=== PATIENT | female | born 1940 | race Caucasian/White ===

== ENCOUNTER 2021-02-03 10:10 | Emergency (ER) | payer MEDICARE, OTHER, SELFPAY ==
[2021-02-03 10:16] VITALS: BP 134/77; PULSE 70; RESP 22; TEMP 36.6; O2SAT 97; BMI 25.0
--- NOTE | 2021-02-03 10:28 | HMH.EDUTC ---
[facility] [place] Clinical Impression: Encounter for laboratory testing for COVID-19 virus Disposition: Home, Self-Care Condition on Discharge: Good Instructions: DI for COVID-19 (Suspected or Confirmed ), Preventing the Spread of Coronavirus Discharge Instructions Additional Instructions: You were tested for today for COVID19 your test result should be back in the next 24-48 hours, you may call to the [facility] to see if your test results are back in the next 48 hours [phone] [facility] hours are 9am-9pm You was given a handout with instructions for Self Quarantine and Self isolation for while you wait on test results and what to do if they are positive If you are positive the Health Dept will be contacting you also Referrals: Vicente Loyd [Primary Care Provider] - As needed Time of Disposition: 10:30 Medical Decision Making - Scott Inquiry Pt receiving controlled substance: No Scott was queried for this patient: No Vital Signs: 02/03/21 10:16 Temperature 98 F Temperature Source Oral Pulse Rate [Right] 70 Respiratory Rate 22 Blood Pressure [Right Arm] 134/77 Blood Pressure Mean [Right Arm] 96 Blood Pressure Source [Right Arm] Automatic Cuff Blood Pressure Position [Right Arm] Sitting 02 Sat by Pulse Oximetry 97 Oxygen Delivery Method Room Air Orders (Tests/Meds): ORDERS Category Date Time Status Covid-19 Nasal PCR ([facility]) Routine Lab 02/03/21 10:28 Ordered [facility] HPI - General Stated complaint: covid Test Time Seen by Provider: 02/03/21 10:28 Mode of Arrival: Ambulatory Source of Information: Patient Limitations: No Limitations Description of Symptoms (Recalled from Triage Doc. by RN): pt wants a covid test. she is aysmptomatic. no exposure. she was out of state to [place]. HEENT Symptoms (Recalled from RN notes): No Resp Symptoms (Recalled from RN notes): No Skin Symptoms (Recalled from RN notes): No MS Symptoms (Recalled from RN notes): No Functional Status (Recalled from RN notes): na - History of Present Illness Provider Complaint: Patient state that she just got back from [place] and she wanted to get tested for COVID State that she is not having any symptoms but will be around some elderly women tomorrow and wanted to make sure that she was negative for COVID before being around them - Related Data Home Medications Medication Instructions Recorded Confirmed Albuterol Sulfate [Albuterol HFA 1 - 2 puffs IH Q4-6H PRN 10/12/18 10/12/18 Inhaler] Atorvastatin Calcium [Atorvastatin 80 mg PO DAILY 10/12/18 10/12/18 80mg Tab] Isosorbide Mononitrate [Imdur 30mg 30 mg PO DAILY 10/12/18 10/12/18 ER tablet] Levothyroxine Sodium [Synthroid 88 mcg PO DAILY 10/12/18 10/12/18 88mcg (0.088mg) tablet] Aspirin [Aspir 81] 1 tab PO DAILY 10/14/18 10/14/18 Previous Rx's Medication Instructions Recorded Azithromycin [Z-Gurvinder 250mg Tab*] 250 mg PO UD DOSE PK #6 tab 05/12/19 methylPREDNISolone [Medrol] 4 mg PO DIRECTED 6 Days #21 05/12/19 tab.ds.pk Fluconazole [Diflucan 150mg tab] 150 mg PO ONCE #1 tab 10/01/19 Ondansetron [Zofran 4mg ODT] 4 mg PO Q8HP PRN #20 tab.rapdis 10/01/19 levoFLOXacin [Levaquin 500mg 500 mg PO DAILY #7 tab 10/01/19 tab] methylPREDNISolone [Medrol] 4 mg PO DIRECTED 6 Days #21 10/01/19 tab.ds.pk Allergies Allergy/AdvReac Type Severity Reaction Status Date / Time propoxyphene Allergy Unknown Verified 02/03/21 10:18 tetracycline Allergy Verified 02/03/21 10:18 - Worker's Comp Is this a Worker's Comp case?: No [facility] History - Hepatitis A Screen Drug use history?: No High risk sexual behaviors?: No History of sexually transmitted infection?: No Currently employed?: No Childcare worker?: No Do you have indoor plumbing?: Yes Do you have electricity?: Yes Attestation statement:: This patient has been screened for Hepatitis A risk factors. I have reviewed the patient's past medical history: Yes Medical History: Reports:: Co
[2021-02-03 10:29] VITALS: BP 129/79; PULSE 73; RESP 21; TEMP 36.6
== END 2021-02-03 10:33 | disposition home or self-care (01) ==
PROVIDERS: Emergency Provider Nurse Practitioner; PCP Internal Medicine
DX: Z20.822 Contact with and (suspected) exposure to COVID-19 (principal); J44.9 Chronic obstructive pulmonary disease, unspecified; E78.5 Hyperlipidemia, unspecified; Z88.8 Allergy status to other drugs, medicaments and biological substances
CPT/HCPCS: G0463; 99202; U0003

== ENCOUNTER 2021-05-14 09:48 | Outpatient (RCR) | payer MEDICARE, OTHER, SELFPAY | END 2021-09-17 10:36 | disposition home or self-care (01) | LOC: PT 09:48 | PROVIDERS: Visit Provider Internal Medicine Critical Care Medicine | DX: J44.9 Chronic obstructive pulmonary disease, unspecified (principal) | CPT/HCPCS: G0424 ==

== ENCOUNTER → 2021-10-10 11:11 | Outpatient (CLI) | payer MEDICARE, OTHER, SELFPAY ==
--- NOTE | 2021-10-10 11:16 | XR_ITS ---
PROCEDURE: XR HIP LT 2-3V W/PELVIS CLINICAL INDICATION: S/P FALL LT BUTTOCK AND LT HIP PAIN COMPARISON: No exams were available for comparison FINDINGS: Minimal osteoarthritic change of the left hip. No acute fracture or dislocation. No lytic or blastic change. IMPRESSION: Minimal osteoarthritic change left hip Dictated by: Jose David Vargas MD 10/10/2021 11:50 Jose David Vargas MD in [place] 10/10/2021 11:50
== END ==
PROVIDERS: PCP Internal Medicine; Visit Provider Internal Medicine
DX: R10.2 Pelvic and perineal pain (principal); M25.552 Pain in left hip
CPT/HCPCS: 73502

== ENCOUNTER → 2021-10-30 06:43 | Outpatient (CLI) | payer MEDICARE, OTHER, SELFPAY ==
--- NOTE | 2021-10-30 06:48 | CT_ITS ---
PROCEDURE: CT HIP LT WO CON CLINICAL HISTORY: LEFT HIP PAIN COMPARISON: CR XR HIP LT 2-3V W/PELVIS from 10/10/2021 TECHNIQUE: Axial images obtained with sagittal and coronal reformats. All CT scans at the facility use one or more dose reduction, viz: automated exposure control, ma/kV adjustment per patient size (including targeted exams where dose is matched to indication, i.e. head), or iterative reconstruction technique. FINDINGS: No fracture or dislocation. No lytic or blastic change. Minimal osteoarthritic changes are present involving the left hip. No soft tissue mass apparent. IMPRESSION: No acute finding Dictated by: Jose David Vargas MD 10/30/2021 12:34 Jose David Vargas MD in [place] 10/30/2021 12:34
== END ==
PROVIDERS: PCP Internal Medicine; Visit Provider Internal Medicine
DX: M25.552 Pain in left hip (principal)
CPT/HCPCS: 73700

== ENCOUNTER 2022-01-12 10:54 | Emergency (ER) | payer MEDICARE, OTHER, SELFPAY ==
[2022-01-12 11:06] VITALS: BP 0/0; PULSE 0; RESP 0; TEMP -17.7; TEMP 0
== END 2022-01-12 11:07 | disposition left against medical advice (07) ==
LOC: UTC 10:59
PROVIDERS: Emergency Provider Nurse Practitioner Family; PCP Internal Medicine
DX: J44.9 Chronic obstructive pulmonary disease, unspecified (principal); Z88.1 Allergy status to other antibiotic agents; Z88.3 Allergy status to other anti-infective agents; Z88.8 Allergy status to other drugs, medicaments and biological substances; Z79.51 Long term (current) use of inhaled steroids; Z79.52 Long term (current) use of systemic steroids; Z79.899 Other long term (current) drug therapy; Z53.21 Procedure and treatment not carried out due to patient leaving prior to being seen by health care provider
CPT/HCPCS: 99211

== ENCOUNTER 2022-06-07 12:12 | Emergency (ER) | payer MEDICARE, OTHER, SELFPAY ==
[2022-06-07 12:25] VITALS: BP 135/82; PULSE 77; RESP 17; TEMP 36.6; O2SAT 96; BMI 24.4
[2022-06-07 12:28] VITALS: BP 135/82; PULSE 77; RESP 17; TEMP 36.6
== END 2022-06-07 12:29 | disposition home or self-care (01) ==
LOC: UTC 12:14
PROVIDERS: Emergency Provider Nurse Practitioner Family; PCP Internal Medicine
DX: Z53.21 Procedure and treatment not carried out due to patient leaving prior to being seen by health care provider (principal); Z20.822 Contact with and (suspected) exposure to COVID-19
CPT/HCPCS: C9803; U0003; U0005

== ENCOUNTER → 2022-07-20 08:16 | Outpatient (CLI) | payer MEDICARE, OTHER, SELFPAY ==
[2022-07-20 09:07] LABS: Blood Urea Nitrogen 15 mg/dl (7-17); Estimated Glomerular Filt Rate 60 ml/min (>60); GFR (African American) 73 ML/MIN (>60)
== END ==
PROVIDERS: PCP Internal Medicine; Visit Provider Internal Medicine
DX: R06.02 Shortness of breath (principal); R07.9 Chest pain, unspecified; J44.9 Chronic obstructive pulmonary disease, unspecified
CPT/HCPCS: 36415; 82565; 84520

== ENCOUNTER → 2022-07-21 13:17 | Outpatient (CLI) | payer MEDICARE, OTHER, SELFPAY ==
--- NOTE | 2022-07-21 | CA_ITS ---
APPROVED REPORT EXAM: Comprehensive 2D, Doppler, and color-flow Echocardiogram Pipe Changer: Josiane Puckett CRT Ht: 5 ft 5 in Wt: 147lbs BSA: 1.74 BP: 134/77 mmHg Indications: Chest Pain, COPD, Hyperlipidemia, stent 2D Dimensions LVOT 1.87 cm (M/F) 1.5-2.5 LA Volume 10.70 mL LA Volume Index 6.10 mL/m2 (M/F) 16-34 M-Mode Dimensions RVDd 2.32 cm (0.9-2.6) LA Diam 3.04 cm (1.9-4.0) LVDd 4.22 cm (3.5-5.7) Ao Diam 3.65 cm (2.0-3.7) LVDs 2.87 cm (3.5-5.7) IVSd 1.13 cm (0.6-1.1) PWd 1.20 cm (0.6-1.1) EF (Teich) 60.50% FS 32.00% EDV (Teich) 79.50 mL TAPSE 2.67 (<1.7) ESV (Teich) 31.40 mL LV Diastology E Decel Time 310.00 (160-240 msec) E/A Ratio 0.65 MED E' 6.00 (< 7 cm/sec) MED A' 11.40 cm/s E'/MED E' Ratio 11.65 (>14) LAT E' 9.10 (<10 cm/sec) LAT A' 9.70 cm/s E/LAT E' Ratio 7.68 (>14) Aortic Valve AO Peak GR. 6.20 mmHg Mitral Valve MV E Max Keshawn. 70.00 (40-130 cm/s) MV A Velocity 107.00 (40-130 cm/s) E/A Ratio 0.65 MV Decel. Time 310.00 (160-240 ms) MV PHT 91.00 ms Pulmonary Valve PV Peak Velocity 159.00 (50-150 cm/s) Tricuspid Valve TR P. Velocity 264.00 cm/s RAP Estimate 10.00 mmHg RVSP 38.00 mmHg Left Ventricle Left atrium is mildly enlarged, left ventricle is normal size mild concentric left ventricular hypertrophy, estimated ejection fraction 55% with no regional wall motion abnormality, grade 1 diastolic dysfunction seen without tissue Doppler evidence of raise left atrial pressure. Right Ventricle Right atrium and right ventricle are mildly enlarged with normal contractility. Aortic Valve Aortic valve is minimally thickened and fibrosed there is no aortic stenosis or aortic insufficiency. Mitral Valve Mitral valve is grossly normal, there is mild mitral regurgitation. Tricuspid Valve Tricuspid valve grossly normal, there is mild tricuspid regurgitation, calculated right ventricular systolic pressure 36 mmHg. Pulmonic Valve Pulmonic valve is poorly visualized. Great Vessels Aortic root is normal size. Inferior vena cava normal size with normal inspiratory collapse. Pericardium No significant pericardial effusion noted. Conclusion 1. Mild biatrial enlargement, normal left ventricular size, mild concentric left ventricular hypertrophy, estimated ejection fraction 55% with no regional wall motion abnormality, grade 1 diastolic dysfunction seen without tissue Doppler evidence of raise left atrial pressure. 2. Mildly enlarged right ventricle with normal contractility. 3. Mild mitral and tricuspid regurgitation, calculated right ventricular systolic pressure 36 mmHg. 4. No significant pericardial effusion. 5. Inferior vena cava is normal size with normal inspiratory collapse. Electronically signed by : Oliver Louis MD 07/22/2022 05:24:08
--- NOTE | 2022-07-21 13:23 | CT_ITS ---
FINAL REPORT TECHNIQUE: Then section axial CT images of the chest were obtained with contrast. Three-D reformatted images were also obtained.This study was performed with techniques to keep radiation doses as low as reasonably achievable (ALARA). Individualized dose reduction techniques using automated exposure control or adjustment of mA and/or kV according to the patient''s size were employed. CLINICAL HISTORY: CHEST PAIN COMPARISON: September 22, 2017 FINDINGS: There is no evidence of pulmonary embolism. There is no evidence of thoracic aortic aneurysm or dissection. There is no evidence of mediastinal or hilar mass or adenopathy. There is mild scarring. A 6 mm right upper lobe nodule is larger than on the prior exam. Posterior to this is a 4 mm nodule that previously measured 8 mm. There is mild ground-glass opacity in both lungs that could represent edema or alveolitis. A 3 mm lateral left upper lobe nodule is new. There are multiple other smaller nodules most numerous in the inferior right upper lobe. Limited images of the upper abdomen demonstrate a 23 mm cystic lesion in the posterior liver to be stable. IMPRESSION: 1. No evidence of pulmonary embolism. 2. Multiple pulmonary nodules some of which have increased and some have decreased while others are new. Recommend six-month follow-up chest CT. 3. Mild ground-glass opacity bilaterally could represent edema or alveolitis. Reviewed, Interpreted and Dictated by Jose Angel Keller III, MD Transcribed by Juanpablo Vallejo Authenticated and . [facility]
== END ==
PROVIDERS: PCP Internal Medicine; Visit Provider Internal Medicine
DX: R06.02 Shortness of breath (principal); J44.9 Chronic obstructive pulmonary disease, unspecified; R07.9 Chest pain, unspecified; I10 Essential (primary) hypertension; E03.9 Hypothyroidism, unspecified
CPT/HCPCS: 71275; 93306; Q9967

== ENCOUNTER → 2022-09-08 16:57 | Outpatient (CLI) | payer MEDICARE, OTHER, SELFPAY | PROVIDERS: PCP Internal Medicine; Visit Provider Internal Medicine | DX: N39.0 Urinary tract infection, site not specified (principal) | CPT/HCPCS: 87086 ==

== ENCOUNTER → 2022-11-20 15:49 | Outpatient (CLI) | payer MEDICARE, OTHER, SELFPAY ==
--- NOTE | 2022-11-20 15:57 | XR_ITS ---
FINAL REPORT CLINICAL HISTORY: LT HIP PAIN COMPARISON: October 10, 2021 FINDINGS: LEFT HIP Two views of the left hip including an AP pelvis demonstrate no acute fracture or dislocation. There are mild degenerative changes of the hips. The visualized bony structures are well aligned. No soft tissue abnormality is seen. IMPRESSION: Mild degenerative changes with no acute bony abnormality. Reviewed, Interpreted and Dictated by Jose Angel Keller III, MD Transcribed by Melissa Lopez Authenticated and [facility]
--- NOTE | 2022-11-20 15:57 | XR_ITS ---
FINAL REPORT CLINICAL HISTORY: PAIN LOW BACK FINDINGS: LUMBAR SPINE 5 views of the lumbar spine were obtained. There is no evidence of fracture or dislocation. There is left lateral subluxation of L2-3 and L3-4. There is levoscoliosis. There are moderate and severe degenerative changes. No paraspinous soft tissue abnormalities identified. IMPRESSION: Moderate and severe degenerative changes with left lateral subluxation of L2-3 and L3-4. No acute bony abnormality. Reviewed, Interpreted and Dictated by Jose Angel Keller III, MD Transcribed by Melissa Lopez Authenticated and [facility]
== END ==
PROVIDERS: PCP Internal Medicine; Visit Provider Internal Medicine
DX: M25.552 Pain in left hip (principal); R10.2 Pelvic and perineal pain
CPT/HCPCS: 72110; 73502

== ENCOUNTER 2023-05-01 17:23 | Emergency (ER) | payer MEDICARE, OTHER, SELFPAY ==
[2023-05-01 17:24] VITALS: BP 138/69; PULSE 74; RESP 24; TEMP 37.1; O2SAT 95; BMI 26.0
--- NOTE | 2023-05-01 17:33 | XR_ITS ---
PROCEDURE INFORMATION: Exam: XR Chest Exam date and time: 05/01/2023 5:38 PM Age: 82 years old Clinical indication: Cough; Additional info: Congestion and SOB TECHNIQUE: Imaging protocol: Radiologic exam of the chest. Views: 2 views. COMPARISON: CT ANGIO CHEST PE PROTOCOL 07/21/2022 1:32 PM FINDINGS: Lungs: There is mild bibasilar atelectasis. Lungs are otherwise appear clear. Pleural spaces: Unremarkable. No pleural effusion. No pneumothorax. Heart/Mediastinum: Unremarkable. No cardiomegaly. Bones/joints: Mild degenerative changes noted in the spine and shoulders IMPRESSION: No acute disease
--- NOTE | 2023-05-01 18:00 | EXP.UTC ---
Discharge Plan Disposition Patient Disposition: Home, Self-Care Condition: Good Prescriptions Prescriptions: New azithromycin [azithromycin] 250 mg tablet 250 mg PO DIRECTED Qty: 4 0RF Rx Instructions: (1) tablet day #2 thru #5 No Action isosorbide mononitrate 30 MG tablet 30 mg PO DAILY levothyroxine [Synthroid] 88 MCG tablet 88 mcg PO DAILY albuterol sulfate [Ventolin HFA] 18 GM HFA aerosol inhaler 1 - 2 puffs inhalation Q4-6H PRN (Reason: Shortness Of Breath Or Wheezing) aspirin [Aspir-81] 81 MG tablet,delayed release (DR/EC) 1 tab PO DAILY fluticasone propionate [Flovent HFA] 220 mcg/actuation HFA aerosol inhaler 2 puff INHALATION BID Label Comments: TAKE 2 PUFFS BY MOUTH TWICE A DAY rosuvastatin 40 mg tablet 40 mg PO DAILY Label Comments: TAKE 1 TABLET BY MOUTH EVERY DAY Stiolto Respimat 2.5-2.5 mcg/actuation mist 2 puff inhalation DAILY Label Comments: INHALE 2 PUFFS BY MOUTH EVERY DAY Referrals Follow up/Referrals: Vicente Loyd MD [Primary Care Provider] - See instructions Clinical Impressions Clinical Impression: Bronchitis Instructions Patient Instructions: Acute Bronchitis Discharge ED Provider: [place] ([facility])[place] [facility] General Stated complaint: slight fever , painful to breathe, SOA Mode of Arrival: Ambulatory Source of Information: Patient Limitations: No Limitations Time Seen by Provider: 05/01/23 18:00 Description of Symptoms (Recalled from Triage Doc. by RN): SOB, cough, upper left back has pain when she breaths HEENT Symptoms (Recalled from RN notes): Yes Resp Symptoms (Recalled from RN notes): No Skin Symptoms (Recalled from RN notes): No MS Symptoms (Recalled from RN notes): No Functional Status (Recalled from RN notes): n/a History of Present Illness Provider Complaint: 82 yr old female presents for cough, soa and pain in upper left back when breathing Related Data Home Medications Medication Instructions Recorded Confirmed albuterol sulfate 90 mcg/actuation 1 - 2 puffs inhalation Q4-6H PRN 10/12/18 05/01/23 aerosol inhaler (Ventolin HFA) Shortness Of Breath Or Wheezing isosorbide mononitrate 30 mg 30 mg PO DAILY Heart disease 10/12/18 05/01/23 tablet,extended release 24 hr levothyroxine 88 mcg tablet 88 mcg PO DAILY thyroid 10/12/18 05/01/23 (Synthroid) aspirin 81 mg tablet,delayed 1 tab PO DAILY thinner 10/14/18 05/01/23 release (Aspir-) fluticasone propionate 220 2 puff inhalation BID COPD 05/01/23 05/01/23 mcg/actuation HFA aerosol inhaler (Flovent HFA) rosuvastatin 40 mg tablet 40 mg PO DAILY . 05/01/23 05/01/23 tiotropium 2.5 mcg-olodaterol 2.5 2 puff inhalation DAILY COPD 05/01/23 05/01/23 mcg/actuation mist for inhalation (Stiolto Respimat) Previous Rx's Medication Instructions Recorded azithromycin 250 mg tablet 250 mg PO DIRECTED #4 tabs 05/01/23 Allergies Allergy/AdvReac Type Severity Reaction Status Date / Time propoxyphene Allergy Unknown Verified 05/01/23 17:41 doxycycline Allergy Verified 05/01/23 17:41 tetracycline Allergy Verified 05/01/23 17:41 Worker's Comp Is this a Worker's Comp case?: No [facility] Disclaimer: The information contained in this section may have been updated after the patient was seen, as this information can be updated by other users. 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
[2023-05-01 19:03] VITALS: BP 138/69; PULSE 74; RESP 24; TEMP 37.1; O2SAT 95
== END 2023-05-01 19:03 | disposition home or self-care (01) ==
PROVIDERS: Emergency Provider Nurse Practitioner Family; PCP Internal Medicine
DX: J20.9 Acute bronchitis, unspecified (principal); R07.1 Chest pain on breathing; R06.02 Shortness of breath
CPT/HCPCS: 71046; 99212; 99214; G0463

== ENCOUNTER → 2023-10-06 17:08 | Outpatient (CLI) | payer MEDICARE, OTHER, SELFPAY | PROVIDERS: PCP Internal Medicine; Visit Provider Internal Medicine | DX: N39.0 Urinary tract infection, site not specified (principal); B96.89 Other specified bacterial agents as the cause of diseases classified elsewhere | CPT/HCPCS: 81001; 87086 ==

== ENCOUNTER → 2023-10-26 13:27 | Outpatient (CLI) | payer MEDICARE, OTHER, SELFPAY ==
[2023-10-26 13:38] LABS: Microscopic, Urine URINE MICROSCOPIC (MICROSCOPIC)
[2023-10-26 14:11] LABS: Appearance,Urine CLEAR (Clear); Bilirubin,Urine Negative (Negative); Blood, Urine Negative (Negative); Color,Urine YELLOW (Yellow); Glucose,Urine (UA) Negative (Negative); Ketones,Urine Negative (Negative); Leukocyte Esterase,Urine 1+ (Negative); Nitrate,Urine Negative (Negative); Protein,Urine Negative (Negative); Specific Gravity, Urine <= 1.005 (1.005-1.030); Urobilinogen,Urine 0.2 EU/dl (0.2)
[2023-10-26 14:32] LABS: Bacteria,Urine Trace /lpf; Triple Phosphate Crystal,Urine Trace /lpf
[2023-10-26 14:33] LABS: RBC,Urine Occasional #/hpf (0-3)
== END ==
PROVIDERS: PCP Internal Medicine; Visit Provider Internal Medicine
DX: N39.0 Urinary tract infection, site not specified (principal)
CPT/HCPCS: 81001; 87086

== ENCOUNTER 2023-11-10 16:07 | Outpatient (CLI) | payer MEDICARE, OTHER, SELFPAY ==
--- NOTE | 2023-11-10 16:13 | XR_ITS ---
FINAL REPORT CLINICAL HISTORY: FEVER, COUGH, COPD COMPARISON: 05/01/2023 FINDINGS: Two views of the chest were obtained. The heart size and pulmonary vascularity are within normal limits. The mediastinum is normal. No acute pulmonary abnormality is identified. There is no pneumothorax. The bony thorax is intact. IMPRESSION: No active cardiopulmonary disease. Reviewed, Interpreted and Dictated by Jose Angel Keller III, MD Transcribed by Elsy Chen Authenticated and . [facility]
== END 2023-11-10 23:59 ==
LOC: RAD 16:08
PROVIDERS: PCP Internal Medicine; Visit Provider Internal Medicine
DX: J44.1 Chronic obstructive pulmonary disease with (acute) exacerbation (principal); R05.9 Cough, unspecified; R50.9 Fever, unspecified
CPT/HCPCS: 71046

== ENCOUNTER 2024-01-21 08:00 | Outpatient (RCR) | payer MEDICARE, OTHER, SELFPAY ==
--- NOTE | 2024-01-04 12:24 | HMH.RHREAS ---
Rehab Reassessment Rehab OP Re-assessment Start: 12/07/23 16:27 Freq: Status: Active Protocol: Document 01/04/24 08:42 TYLER (Rec: 01/04/24 10:06 TYLER [id number]) E-signed By Franci Snyder, PT CORTEZ Balance Evaluation Sitting to Standing Ability Independent w/out Hands Unsupported Stance Safely- 2 minutes Sitting Unsupported, Feet on Floor Safely- 2 minutes Standing to Sitting Ability Safely, Minimal Hand Use Transfer Ability Safely, Minimal Hand Use Unsupported Stance- Eyes Closed Safely, 10 seconds Unsupported Stance- Eyes Open Independent, 1 minute Reaching Forward Standing Confidently, 10 inches Pick- Up Object From Floor Independent/Safe Look Behind Shoulder - Standing Shifts Weight Unilateral Turning 360 Degrees Turns slowly, but safely Unsupported Stance, Alternating Feet on Assist to Prevent Fall Stair Unsupported Tandem Stance Small Step- 30 seconds Unilateral Leg Stance Lifts Leg/Holds 5-10 secs Total Score Balance Evaluation Total (out of 56 46 points) Lower Extremity Functional Index Activities Today, do you or would you have any difficulty at all with: a.Any of your usual work, housework or Moderate difficulty school activities b. Your usual hobbies, recreational or Moderate difficulty sporting activities c. Getting into or out of the bath Moderate difficulty d. Walking between rooms A little bit of difficulty e. Putting on your shoes or socks Moderate difficulty f. Squatting Quite a bit of difficulty g. Lifting an object, like a bag of Quite a bit of difficulty groceries from the floor h. Performing light activities around A little bit of difficulty your home i. Performing heavy activities around Quite a bit of difficulty your home j. Getting into or out of a car A little bit of difficulty k. Walking 2 blocks Quite a bit of difficulty l. Walking a mile Quite a bit of difficulty m. Going up or down 10 stairs (about 1 Moderate difficulty flight of stairs) n. Standing for 1 hour Extreme difficulty or unable to perform activity o. Sitting for 1 hour No difficulty p. Running on even ground Moderate difficulty q. Running on uneven ground Quite a bit of difficulty r. Making sharp turns while running fast Quite a bit of difficulty s. Hopping Moderate difficulty t. Rolling over in bed Moderate difficulty LEFI Score Lower Extremity Functional Index Score 36 Rehab Re-assessment Subjective Subjective Pt reports she is tired d/t a long night in ER (for ) . 0/10 hip pain upon arrival. I've been doing all my exercises. Objective Objective Notes CORTEZ/56 MMT: L hip flexion 4-/5 R hip flexion 4/5 B knee ext: 4/5 BDF: 4+/5 B Knee flex: 4/5 B hip ABD and ADD: 4/5 LEFI: 36/80 Assessment Assessment Notes As of 01/04/24, pt has been seen for 6 visits and pt has made improvements in BLE strength, balance, and subjective pain reports. Pt continues to state her pain is 0/10 during PT sessions since her injection but is limited by strength and standing long durations. Pt reports she feels 80% better in terms of hip pain and 75% better in regard to her LE strength. Pt continues to demonstrate impaired standing balance on even and uneven surfaces and impaired BLE strength (L more so than R). Pt would continue to benefit from skilled outpatient PT to address BLE strength, pain, gait, and balance. Patient goals met ST/4 LTG: in progress Revised Goals Added goal: Subjective pain report: 24 hour pain average of 12/18 to improve QOL Plan Plan Continue POC Frequency of Therapy 2 times Duration of therapy 6 Time and Billing Re-Eval Time 10 Re-Eval Billing Units 1 PHYSICIAN CERTIFICATION: I certify the specified therapy services for Nuzhat Bae are required, authorized, and reviewed every 30 days.
== END 2024-01-21 09:15 | disposition home or self-care (01) ==
LOC: PT 08:00
PROVIDERS: PCP Internal Medicine; Visit Provider Orthopaedic Surgery
DX: M25.552 Pain in left hip (principal); M25.551 Pain in right hip
CPT/HCPCS: 97110; 97163; 97164; 97530

== ENCOUNTER 2024-08-22 13:40 | Outpatient (CLI) | payer MEDICARE, OTHER, SELFPAY ==
[2024-08-22 13:59] LABS: Microscopic, Urine URINE MICROSCOPIC (MICROSCOPIC)
[2024-08-22 14:12] LABS: Appearance,Urine CLEAR (Clear); Bilirubin,Urine Negative (Negative); Blood, Urine Negative (Negative); Color,Urine YELLOW (Yellow); Glucose,Urine (UA) Negative (Negative); Ketones,Urine Negative (Negative); Leukocyte Esterase,Urine 1+ (Negative); Nitrate,Urine Negative (Negative); Protein,Urine Negative (Negative); Urobilinogen,Urine 0.2 EU/dl (0.2)
[2024-08-22 14:20] LABS: Bacteria,Urine Trace /lpf; WBC,Urine Occasional #/hpf (0-3)
== END 2024-08-22 23:59 | disposition home or self-care (01) ==
LOC: LAB 13:42
PROVIDERS: PCP Internal Medicine; Visit Provider Internal Medicine Nephrology
DX: R82.81 Pyuria (principal)
CPT/HCPCS: 81001; 87086

== ENCOUNTER 2024-08-31 15:40 | Outpatient (CLI) | payer MEDICARE, OTHER, SELFPAY | END 2024-08-31 23:59 | disposition home or self-care (01) | LOC: LAB.DROPOF 09-01 12:50 | PROVIDERS: PCP Internal Medicine; Visit Provider Internal Medicine | DX: N39.0 Urinary tract infection, site not specified (principal) | CPT/HCPCS: 87086 ==

== ENCOUNTER 2024-11-29 11:25 | Outpatient (CLI) | payer MEDICARE, OTHER, SELFPAY ==
[2024-11-29 13:28] LABS: Basophils # 0.1 K/mm3 (0-0.2); Basophils % 0.7 % (0.1-2.0); Eosinophils # 0.4 K/mm3 (0.0-0.4); Eosinophils % 3.6 % (0.1-12.0); Hematocrit 42.8 % (37.0-47.0); Hemoglobin 13.8 g/dL (12.2-16.2); Lymphocytes # 1.9 K/mm3 (0.7-4.5); Mean Corpuscular HGB Conc 32.2 g/dL (31.8-35.4); Mean Platelet Volume 10.6 fl (7.4-10.4); Monocytes # 0.9 K/mm3 (0.1-1.0); Monocytes % 9.1 % (1.7-9.3); Neutrophils # 6.4 K/mm3 (1.8-7.8); Neutrophils % 66.2 % (37.0-80.0); Platelet Count 236 K/mm3 (142-424); Red Cell Distribution Width 14.4 % (11.5-17.5); White Blood Count 9.6 K/mm3 (4.8-10.8)
[2024-11-29 16:01] LABS: Erythrocyte Sedimentation Rate 71 mm/hr (0-30)
== END 2024-11-29 23:59 | disposition home or self-care (01) ==
LOC: LAB.DROPOF 11-30 13:55
PROVIDERS: PCP Internal Medicine; Visit Provider Internal Medicine
DX: M54.2 Cervicalgia (principal)
CPT/HCPCS: 85025; 85651

== ENCOUNTER 2024-12-14 15:41 | Outpatient (CLI) | payer MEDICARE, OTHER, SELFPAY ==
[2024-12-14 16:15] LABS: Chloride 103 mmol/L (98-107)
[2024-12-14 16:16] LABS: Potassium 4.1 mmoL/L (3.5-5.1); Sodium 139 mmol/L (136-145)
[2024-12-14 16:18] LABS: Blood Urea Nitrogen 16 mg/dl (7-17); Estimated Glomerular Filt Rate 80 ml/min (>60); GFR (African American) 97 ML/MIN (>60)
[2024-12-14 16:19] LABS: Anion Gap 13.1 mEq/L (5-15); Calcium 9.1 mg/dl (8.4-10.2); Carbon Dioxide 27 mmol/L (22.0-30.0); Glucose 88 mg/dl (74-100)
[2024-12-14 19:40] LABS: Erythrocyte Sedimentation Rate 22 mm/hr (0-30)
== END 2024-12-14 23:59 | disposition home or self-care (01) ==
LOC: LAB.DROPOF 15:41
PROVIDERS: PCP Internal Medicine; Visit Provider Internal Medicine
DX: R70.0 Elevated erythrocyte sedimentation rate (principal); M25.511 Pain in right shoulder; M25.512 Pain in left shoulder; M54.2 Cervicalgia
CPT/HCPCS: 80048; 85651

== ENCOUNTER 2025-07-11 10:45 | Outpatient (CLI) | payer MEDICARE, OTHER, SELFPAY ==
--- OUTSIDE RECORDS SUMMARY | 2019-12-19 10:42 | XMS_ITS | Encounter Summary ---
[facility] [address] [place] [address] Care Team Providers Care Software Licensing Analyst Name Role Phone Vicente Loyd MD Primary Care Provider [phone] Encounter Details Date Type Department Care Team (Late st Contact Info) Description 12/19/2019 9:42 AM EST Hospital Encounter [facility] PULMONARY & CRITICAL CARE MEDICINE [address] [place] [phone] Social History Tobacco Use Types Packs/Day [...] PA AND LATERAL- 12/19/2019 INDICATION: SEE DIAGNOSIS; [id number] COMPARISON: 04/03/2016 FINDINGS: PA and lateral views [...] PA AND LATERAL- 12/19/2019 INDICATION: SEE DIAGNOSIS; [id number] COMPARISON: 04/03/2016 FINDINGS: PA and lateral views [...] documented as of this encounter Care Teams Software Licensing Analyst Relationship Specialty Start Date End Date Vicente Loyd MD [address] [place] [facility] [address] [place] [address] PCP - General Internal Medicine 05/14/16 documented as of this encounter
--- OUTSIDE RECORDS SUMMARY | 2022-09-25 10:04 | XMS_ITS | Encounter Summary ---
[facility] Address [address] [place] [address] Care Team Providers Care Combat Systems Officer Name Role Phone Vicente Loyd MD Primary Care Provider [phone] Encounter Details Date Type Department Care Team (Late st Contact Info) Description 09/25/2022 9:04 AM EST Hospital Encounter [facility] PULMONARY & CRITICAL CARE MEDICINE [address] [place] [phone] Social History Tobacco Use Types Packs/Day [...] has been no significant change compared to 2020. Impression: No acute cardiopulmonary disease. Chronic findings as described above. Mitchell Paige MD Mitchell Paige MD IMG DIAGNOSTIC IMAGING ORDERABLES Final Result documented in this encounter Visit Diagnoses Not on filedocumented in this encounter Care Teams Combat Systems Officer Relationship Specialty Start Date End Date Vicente Loyd MD [address] [place] [facility] [address] [place] [address] PCP - General Internal Medicine 05/14/16 documented as of this encounter
--- OUTSIDE RECORDS SUMMARY | 2023-02-26 08:28 | XMS_ITS | Encounter Summary ---
[facility] [address] [place] [address] Care Team Providers Care Grain I Farmworker Name Role Phone Vicente Loyd MD Primary Care Provider [phone] Encounter Details Date Type Department Care Team (Late st Contact Info) Description 02/26/2023 8:28 AM EDT Hospital Encounter [facility] PULMONARY & CRITICAL CARE MEDICINE [address] [place] [phone] Social History Tobacco Use Types Packs/Day [...] findings. Chronic findings as above. No significant chemical cell changer prior films. Mitchell Paige MD us Mitchell Paige MD IMG DIAGNOSTIC IMAGING ORDERABLES Final Result documented in this encounter Visit Diagnoses Not on filedocumented in this encounter Care Teams Grain I Farmworker Relationship Specialty Start Date End Date Vicente Loyd MD [facility] [address] [place] [id number] PCP - General Internal Medicine 05/14/16 documented as of this encounter
--- OUTSIDE RECORDS SUMMARY | 2024-03-03 09:00 | XMS_ITS | Encounter Summary ---
[facility] [address] [place] [address] Care Team Providers Care Bench Inspector Name Role Phone Vicente Loyd MD Primary Care Provider [phone] Encounter Details Date Type Department Care Team (Late st Contact Info) Description 03/03/2024 9:00 AM EDT Hospital Encounter [facility] PULMONARY & CRITICAL CARE MEDICINE [address] [place] [phone] Social History Tobacco Use Types Packs/Day [...] findings as detailed above. No significant exchange engineer 2022. Mitchell Paige MD Mitchell Paige MD IMG DIAGNOSTIC IMAGING ORDERABLES Final Result documented in this encounter Visit Diagnoses Not on filedocumented in this encounter Care Teams Bench Inspector Relationship Specialty Start Date End Date Vicente Loyd MD [facility] [address] [facility] [address] PCP - General Internal Medicine 05/14/16 documented as of this encounter
--- OUTSIDE RECORDS SUMMARY | 2025-07-13 09:43 | XMS_ITS | Clinical Summary ---
Author Organization [employer] ([place], [place], [place], [place]) Address [address] [place] [address] Care Team Providers Care Commercial Green Building Designer Name Role Phone Vicente Loyd MD Primary Care Provider [phone] Social History Tobacco Use Types Packs/Day Years Used Date Smoking Tobacco: Never Assessed Food Insecurity Answer Date Recorded Food run out past 12 months Not on file 11/08 Food did not last past 12 months Not on file 11/19/2023 Employment Answer Date Recorded Help finding and keeping a job Not on file 0 11/19/2023 Family and Community Support Answer Humberto e Recorded Help with Day to Day Activities Not on file 11/19/2023 Feeling Lonely or Isolated Not on file 11/19 Educational Attainment Answer Date Les rded Speak language other than Cymraes at home Not on file 11/19/2023 Want help with school or training Not on file 11/19/2023 Substance Use Answer Date Recorded Used prescription meds for non-medical reasons N ot on file 11/19/2023 Used illegal drugs past 12 months Not on file 11/19/2023 Comments Unknown Sex and Gender Information Value Date Recorded Sex Assigned at Female 05/05/2022 10:42 AM CDT Legal Sex Female 10:42 AM CDT Gender Identity Female 05/05/2022 10:42 AM CDT Sexual Orientation Not on file Plan of Treatment Health Maintenance Due Date Last Done Comments Depression Screening (12+) 1952 Tobacco Cessation Counseling and Screening (12+) 1954 DTAP/TDAP/TD VACCINES (1 - Tdap) 1961 Shingles Vaccine (Zoster) (1 of 2) 1992 Medicare Initial AWV G0438 08/09/2008 Respiratory Syncytial Virus (RSV) Adult or (1 - 1-dose 75+ series) 2017 Pneumococcal 50+ years (2 of 2 - PPSV23) 01/12/2019 01/12/2018 COVID-19 VACCINE (5 - 2023-2 5 season) 2024 04/17/2022, 07/16/2021, 12/30/2020, Additional history exists Falls Risk Screening 11/08/2024 Influenza Vaccine (#1) 2025 , 08/30/2020, 08/18/2019, Additional history exists DXA SCAN 10/21/2025 10/21/2023, 05/09, 05/09/2021, Additional history exists Procedures Procedure Name Priority Date/Time Associated Diagnosis Comments DXA BONE DENSITY SPINE AND HIP Routine 10/21/2023 3:25 PM EST Age-related osteoporosis without current pathological fracture from Last 3 Months or Most Recently Relevant to Health Maintenance Results * DXA bone density spine and hip (10/21/2023 3:25 PM EST) Anatomical Region Laterality Modality Bone Dual-energy X-ra y absorptiometry (DEXA) 10/21/2023 4:01 PM EST Narrative 10/21/2023 4:04 PM EST PROCEDURE: Bone densitometry (DXA). REASON FOR EXAM: 83-year-old female for bone mineral densitometry. Prolia therapy. RISK FACTORS: Estrogen deficiency. COMPARISON STUDY: [facility] FINDINGS: Bone densitometry was performed using a Ozmott unit. Sites measured included the spine and left hip. Both sites appear to be valid. Using L1-4, the bone mineral density of the spine is 1.220g/cm2, compared to 1.250g/cm2 on the prior exam. This corresponds to a T-score of 0.2 on the present exam, compared to a T-score of 0.5 previously. Using the left femoral neck, the bone mineral density of the hip is 0.662g/cm2, compared to 0.715g/cm2 on the prior exam. This corresponds to a T-score of -2.7 on the present exam, compared to a T-score of -2.3 previously. Using the left forearm the bone mineral density is 0.569 g/sq cm versus 0.524 g/sq cm on the prior examination. The T score is -3.5 versus -4.0 on the prior examination. NOTE: T-score: standard deviation compared with peak bone mass of young adult mean. Z-score: standard deviation compared with age-matched mean. * Following the recommendations of the International Society of Bone Densitometry, classification of hip BMD is based upon the lower of two T-scores; total hip or femoral neck. ASSESSMENT: Normal bone mineral density in the lumbar spine, likely artificially elevated secondary to significant osteophytosis and scoliosis visible on the images given. Osteoporosis in the left femoral neck and left forearm. RECOMMENDATION: Encourage weight-bearing exercise and calcium supplementation. Consider additional oral therapy. Follow-up examination in 2 years. Procedure Note Soumya Vitale MD - 10/21/2023 PROCEDURE: Bone densitometry (DXA). REASON FOR EXAM: 83-year-old female for bone mineral densitometry. Prolia therapy. RISK FACTORS: Estrogen deficiency. COMPARISON STUDY: [facility] FINDINGS: Bone densitometry was performed using a Ozmott unit. Sites measured included the spine and left hip. Both sites appear to be valid. Using L1-4, the bone mineral density of the spine is 1.220g/cm2, compared to 1.250g/cm2 on the prior exam. This corresponds to a T-score of 0.2 on the present exam, compared to a T-score of 0.5 previously. Using the left femoral neck, the bone mineral density of the hip is 0.662g/cm2, compared to 0.715g/cm2 on the prior exam. This corresponds to a T-score of -2.7 on the present exam, compared to a T-score of -2.3 previously. Using the left forearm the bone mineral density is 0.569 g/sq cm versus 0.524 g/sq cm on the prior examination. The T score is -3.5 versus -4.0 on the prior examination. NOTE: T-score: standard deviation compared with peak bone mass of young adult mean. Z-score: standard deviation compared with age-matched mean. * Following the recommendations of the International Society of Bone Densitometry, classification of hip BMD is based upon the lower of two T-scores; total hip or femoral neck. ASSESSMENT: Normal bone mineral density in the lumbar spine, likely artificially elevated secondary to significant osteophytosis and scoliosis visible on the images given. Osteoporosis in the left femoral neck and left forearm. RECOMMENDATION: Encourage weight-bearing exercise and calcium supplementation. Consider additional oral therapy. Follow-up examination in 2 years. Jennifer German MD IMG DXA ORDERABLES Final Result from Last 3 Months or Most Recently Relevant to Health Maintenance Insurance [place] [id number] MEDICARE PART A B AETNA Care Teams Commercial Green Building Designer Relationship Specialty Start Date End Date Vicente Loyd MD [address] [place] [id number] PCP - General General Internal Medicine 06/18/23
--- OUTSIDE RECORDS SUMMARY | 2025-07-13 09:43 | XMS_ITS | Encounter Summary ---
Author Organization [employer] ([place], [place], [place], [place]) Address [address] [place] [address] Care Team Providers Care Manager Of Software Development Name Role Phone Vicente Loyd MD Primary Care Provider [phone] Reason for Referral * DXA (Routine) - New Request Specialty Diagnoses / Procedures Referred By Contac t Referred To Contact Diagnoses Age-related osteoporosis without current pathological fracture Procedures DXA bone density spine [place] [address] [place], [place] [id number] Phone: tel: fax: Referral ID Status Reason Start Date Expiration Date V isits Requested Visits Authorized [id number] New Request 08/22/2024 08/22/2025 1 1 Encounter Details Date Type Department Care Team (Late st Contact Info) Description 08/22/2024 Outside Orders [facility] Central Scheduling [address] [place] [phone] Jennifer German MD [facility] [place] [address] Age-related osteoporosis without current pathological fracture (Primary Dx) Social History Tobacco Use Types Packs/Day Years [...] Date Les rded Speak language other than Congolese at home Not on file 11/19/2023 Want [...] AM CDT Sexual Orientation Not on file documented as of this encounter Plan of Treatment Scheduled Orders Name Type Priority Associated Diagnoses Orde r Schedule DXA bone density spine and hip Imaging Routine Age-related osteoporosis without current pathological fracture Expected: 08/22/2024, Expires: 09/22/2025 documented as of this encounter Visit Diagnoses Diagnosis Age-related osteoporosis without current pathological fracture- Primary documented in this encounter Care Teams Manager Of Software Development Relationship Specialty Start Date End Date Vicente Loyd MD [address] [place] [phone] PCP - General General Internal Medicine 06/18/23 documented as of this encounter
--- OUTSIDE RECORDS SUMMARY | 2025-07-13 09:43 | XMS_ITS | Referral Summary ---
Author Organization [employer] ([place], [place], [place], [place]) Address [address] [place] [address] Care Team Providers Care Braille Transcriber Name Role Phone Vicente Loyd MD Primary Care Provider [phone] Social History Tobacco Use Types Packs/Day Years [...] Date Les rded Speak language other than Spanish at home Not on file 11/19/2023 Want [...] Orientation Not on file Plan of Treatment Not on file Procedures Procedure Name Priority Date/Time Associated Diagnosis [...] therapy. RISK FACTORS: Estrogen deficiency. COMPARISON STUDY: [facility] FINDINGS: Bone densitometry was performed using a ByteShield unit. Sites measured included the spine and [...] therapy. RISK FACTORS: Estrogen deficiency. COMPARISON STUDY: [facility] FINDINGS: Bone densitometry was performed using a ByteShield unit. Sites measured included the spine and [...] examination in 2 years. Jennifer German MD [facility] DXA ORDERABLES Final Result from Last 3 Months or Most Recently Relevant to Health Maintenance Insurance MEDICARE PART A B AETNA Care Teams Braille Transcriber Relationship Specialty Start Date End Date Vicente Loyd MD [address] [place] [phone] PCP - General General Internal Medicine 06/18/23
--- OUTSIDE RECORDS SUMMARY | 2025-07-13 09:43 | XMS_ITS | Clinical Summary ---
Author Organization [facility] Address [address] [place] [address] Care Team Providers Care Java Development Team Lead Name Role Phone Vicente Loyd MD Primary Care Provider [phone] Allergies Active Allergy Reactions Criticality Noted Date Comments Propoxyphene 05/13/2016 Doxycycline Other (See Comments) 10/13/2017 blisters Medications ferrous sulfate 325 (65 FE) MG tablet Take 1 tablet by mouth Daily With Breakfast. 5 Active nitroglycerin (NITROSTAT) 0.4 MG SL tablet 1 under the tongue as needed for angina, may repeat q5mins for up three doses 100 tablet 2 6 Active isosorbide mononitrate (IMDUR) 30 MG 24 hr tablet Take 1 tablet by mouth Daily. 3 6 Active aspirin 81 MG tablet Take 1 tablet by mouth Daily. Active denosumab (PROLIA) 60 MG/ML solution syringe 1 mL. Active rosuvastatin (CRESTOR) 40 MG tablet Take 1 tablet by mouth Daily. 2 9 Active guaiFENesin (MUCINEX) 600 MG 12 hr tablet Take 1 tablet by mouth 2 (Two) Times a Day. Active levothyroxine (SYNTHROID, LEVOTHROID) 75 MCG tablet Synthroid 75 mcg tablet TAKE 1 TABLET BY MOUTH EVERY MORNING Active vitamin D (ERGOCALCIFEROL) 1.25 MG (26498 UT) capsule capsule Take 1 capsule by mouth Every 14 (Fourteen) Days. 1 Active albuterol (PROVENTIL) (2.5 MG/3ML) 0.083% nebulizer solution INHALE 1 VIAL VIA NEBULIZER EVERY 4 HOURS NEEDED FOR WHEEZING 300 mL 3 3 Active albuterol sulfate HFA 108 (90 Base) MCG/ACT inhalerIndicatio ns:Moderate COPD (chronic obstructive pulmonary disease) Inhale 2 puffs Every 4 (Four) Hours As Needed for Wheezing. 18 g 11 4 Active tiotropium bromide-olodater ol (Stiolto Respimat) 2.5-2.5 MCG/ACT aerosol solution inhalerIndicatio ns:Moderate COPD (chronic obstructive pulmonary disease) Inhale 2 puffs Daily. 12 g 11 4 Active Fluticasone Furoate (Arnuity Ellipta) 200 MCG/ACTIndicatio ns:Moderate COPD (chronic obstructive pulmonary disease),Shortne ss of breath Inhale 1 Act Daily. 1 Puff Daily - Fill as 90 day supply. However, pt will need an appt for further refills. 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 90% stenosis of the distal dominant left circumflex coronary artery. Anterior/apical hypokinesis with mild left ventricular systolic dysfunction, estimated ejection fraction 50%. Successful PTCA/stenting of the proximal LAD with 3.0 x 23 mm drug-eluting stent reducing subtotal occlusion to no significant residual disease. Successful PTCA/stenting of the first diagonal with 2.25 x 12 mm drug-eluting stent reducing 80% stenosis to 0%. Successful PTCA/stenting of the distal circumflex with 2.5 x 15 mm drug-eluting stent proximally expanded to 3.0 mm reducing 90% stenosis to 0%. 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 History of Schatzki's ring with dilation x2. 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 Poor secretion clearance with abnormal CT in the past, likely related to mucous plugging. Secondary pulmonary hypertension 04/03/2016 Chronic kidney disease, stage III (moderate) Osteoporosis 03/23/2016 Immunizations Immunization Administration Dates Next Due COVID-19 ([employer]) Purple Cap Monovalent 12/30/2020,12/09/2020 Fluad Quad 65+ 08/30/2020 Fluzone High-Dose 65+YRS 09/08/2024,08/08,08/15/2018,2016 Fluzone High-Dose 65+yrs 09/03/2023 Influenza, Unspecified 08/20/2022 Pneumococcal Conjugate 13-Va lent (PCV13) 01/12/2018 Pneumococcal Conjugate 20-Va lent (PCV20) 03/03/2024 Family History Medical History Relation Name Comments Heart attack Father Pneumonia Mother Recurrent Stroke Mother Other Other 1 Family history Bronchitis Pneumonia Other 1 Family history Breast cancer Other 2 Grandparents Heart attack Other 2 Grandparents Relation Name Status Comments Father (Age 67) Mother (Age 76) Other 1 Family history Other 2 Grandparents Social History Tobacco Use Types Packs/Day Years Used Date Smoking Tobacco: Never Passive Smoke Exposure: Never Smokeless Tobacco: Never Tobacco Cessation:Counseling Given: Not Answered Alcohol Use Standard Drinks/Week Comments No 0 (1 standard drink = 0.6 oz pur e alcohol) Comments No Sex and Gender Information Value Date Recorded Sex Assigned at Not on file Legal Sex Female 1:17 PM EDT Gender Identity Not on file Sexual Orientation Not on file Last Filed Vital Signs Vital Sign Reading Time Taken Comments Blood Pressure 122/74 03/09/2025 9:42 AM EDT Pulse 78 03/09/2025 9:42 AM EDT Temperature 36.7 C (98.1 F) 03/09/2025 9:42 AM EDT Respiratory Rate 16 03/03/2024 9:26 AM EDT Oxygen Saturation 95% 03/09/2025 9:4 2 AM EDT resting, room air Inhaled Oxygen Concentration - - Weight 65.8 kg (145 lb) 03/09/2025 9:42 AM EDT Height 165.1 cm (5' 5 ) 03/09/2025 9:42 AM EDT Body Mass Index 24.13 03/09/2025 9:42 AM EDT Plan of Treatment Health Maintenance Due Date Last Done Comments TDAP/TD VACCINES (1 - Tdap) 1961 COLOGUARD 1987 COLON CANCER SCREENING 5 YEA R SIGMOIDOSCOPY 1987 CT COLONOGRAPHY 1987 FECAL OCCULT BLOOD TEST 1987 FIT Testing (1 year) 1987 ZOSTER VACCINE (1 of 2) 1992 ANNUAL WELLNESS VISIT 04/26/2017 LIPID PANEL 04/27/2017 04/27/2016 RSV Vaccine - Adults (1 - 1- dose 75+ series) 2017 COLONOSCOPY 09/15/2022 09/15/2012 COLORECTAL CANCER SCREENING 09/15/2022 COVID-19 Vaccine (5 - 2024-2 6 season) 2025 04/17/2022, 07/16/2021, 12/30/2020, Additional history exists INFLUENZA VACCINE 08/08/2025 09/08/2024, , 08/20/2022, Additional history exists DXA SCAN 10/21/2025 10/21/2023 MAMMOGRAM Discontinued 06/18/2023, 06/08, 06/12/2022, Additional history exists Pneumococcal Vaccine 50+ Completed 03/03/2024, 0305/2018 Medical Devices Implanted Type Area Marble Setter Device Identifier Shelf Expiration Date Model / Serial / Lot Stent Xience Alpine Jeremias Rx [id number] - [id number] Implanted:Qty: 1 on 04/27/2016 by Susana Parmar MD at [facility] 12/29/2018 [id number] / / [id number] Stent Xience Alpine Jeremias Rx [id number] - [id number] Implanted:Qty: 1 on 04/27/2016 by Susana Parmar MD at [facility] VASCULAR 01/15/2019 [id number] / / [id number] Stent Xience Alpine Jeremias Rx [id number] - [id number] Implanted:Qty: 1 on 04/27/2016 by Susana Parmar MD at [facility] VASCULAR [id number] / / Procedures Procedure Name Priority Date/Time Associated Diagnosis Comments LIPID PANEL Routine 04/27/2016 10:36 PM EDT from Last 3 Months or Most Recently Relevant to Health Maintenance Results * (ABNORMAL) Once Lipid panel (04/27/2016 10:36 PM EDT) Total Cholesterol 235(H) 0 - 200 mg/dL 04/27/2016 11:23 PM EDT [facility] Triglycerides 236(H) 0 - 150 mg/dL 04/27/2016 11:23 PM EDT [facility] HDL Cholesterol 36(L) 40 - 60 mg/dL 04/27/2016 11:23 PM EDT [facility] VLDL Cholesterol 47.2 mg/dL 04/27/20 16 11:23 PM EDT [facility] LDL/HDL Ratio 4.22 04/27/2016 11:23 PM EDT [facility] LDL Cholesterol 128 0 - 130 mg/dL 04/27/2016 11:23 PM EDT [facility] Blood specimen (specimen) Line / Unknown 04/27/2016 10:36 PM EDT 04/27/2016 10:36 PM EDT [facility] - 04/27/2016 11:23 PM EDT Cholesterol Reference Ranges: Desirable < 200 mg/dL Borderline 200-239 mg/dL High Risk > 239 mg/dL Triglyceride Reference Ranges: Normal < 150 mg/dL Borderline 150-199 mg/dL High 200-499 mg/dL Very High > 499 mg/dL HDL Reference Ranges: Low < 40 mg/dL High > 59 mg/dL LDL Reference Ranges: Optimal < 100 mg/dL Near Optimal 100-129 mg/dL Borderline 130-159 mg/dL High 160-189 mg/dL Very High > 189 mg/dL us Susana Parmar MD LAB BLOOD ORDERABLES Final Resul t [facility]
[address] [id number], [place] [phone] from Last 3 Months or Most Recently Relevant to Health Maintenance Insurance MEDICARE A & B [employer] Advance Directives * Full Code (Latest Code Status on File) Date Activated Date Inactivated Comments 04/27/2016 5:43 PM 04/29/2016 5:27 PM Question Answer Comments Level Of Support Discussed With: Patient * Full Code Date Activated Date Inactivated Comments 04/27/2016 2:17 PM 04/27/2016 5:43 PM Care Teams Java Development Team Lead Relationship Specialty Start Date End Date Vicente Loyd MD [address] [facility] [address] [place] [id number] PCP - General Internal Medicine 05/14/16
== END 2025-07-11 23:59 ==
LOC: LAB.DROPOF 07-13 09:41
PROVIDERS: PCP Internal Medicine; Visit Provider Internal Medicine
DX: N39.0 Urinary tract infection, site not specified (principal)
CPT/HCPCS: 87086; 87088

== ENCOUNTER 2025-07-14 11:04 | Outpatient (CLI) | payer MEDICARE, OTHER, SELFPAY ==
--- OUTSIDE RECORDS SUMMARY | 2019-12-19 10:42 | XMS_ITS | Encounter Summary ---
[facility] Address [address] [place] [address] Care Team Providers Care Mathematics Technician Name Role Phone Vicente Loyd MD Primary Care Provider [phone] Encounter Details Date Type Department Care Team (Late st Contact Info) Description 12/19/2019 9:42 AM EST Hospital Encounter [facility] PULMONARY & CRITICAL CARE MEDICINE [address] [place] [phone] Social History Tobacco Use Types Packs/Day Years Used Date Smoking Tobacco: Never Passive Smoke Exposure: Never Smokeless Tobacco: Never Alcohol Use Standard Drinks/Week Comments No 0 (1 standard drink = 0.6 oz pur e alcohol) Comments No Sex and Gender Information Value Date Recorded Sex Assigned at Not on file Legal Sex Female 1:17 PM EDT Gender Identity Not on file Sexual Orientation Not on file documented as of this encounter Plan of Treatment Not on file documented as of this encounter Procedures Procedure Name Priority Date/Time Associated Diagnosis Comments XR CHEST PA AND LATERAL Routine 12/19/2019 9:52 AM EST Cough documented in this encounter Results * XR Chest PA & Lateral (12/19/2019 9:52 AM EST) Anatomical Region Laterality Modality Body, Chest N/A Radiographic Genesis ging 12/19/2019 3:24 PM EST Impressions 12/21/2019 4:10 PM EST Chronic changes seen within the lung mayo with no evidence of acute parenchymal disease. E: 12/20/2019 This report was finalized on 12/21/2019 4:[address] Esme Fernando MD. Narrative 12/21/2019 4:10 PM EST EXAMINATION: XR CHEST PA AND LATERAL- 12/19/2019 INDICATION: SEE DIAGNOSIS; [id number] COMPARISON: 04/03/2016 FINDINGS: PA and lateral views of the chest reveal cardiac and mediastinal silhouettes within normal limits. The lung mayo are grossly clear. No focal parenchymal opacification present. No pleural effusion or pneumothorax. Degenerative changes seen within the spine. Vascular calcifications seen within the thoracic aorta. The upper lung mayo are clear. Procedure Note Esme Fernando MD - 12/21/2019 EXAMINATION: XR CHEST PA AND LATERAL- 12/19/2019 INDICATION: SEE DIAGNOSIS; [id number] COMPARISON: 04/03/2016 FINDINGS: PA and lateral views of the chest reveal cardiac and mediastinal silhouettes within normal limits. The lung mayo are grossly clear. No focal parenchymal opacification present. No pleural effusion or pneumothorax. Degenerative changes seen within the spine. Vascular calcifications seen within the thoracic aorta. The upper lung mayo are clear. IMPRESSION: Chronic changes seen within the lung mayo with no evidence of acute parenchymal disease. E: 12/20/2019 This report was finalized on 12/21/2019 4:[address] Esme Fernando MD. Daysi Quinn APRN IMG DIAGNOSTIC IMAGING ORDERA BLES Final Result documented in this encounter Visit Diagnoses Not on filedocumented in this encounter Additional Health Concerns Infection Onset Date Last Indicated Resolved Time COVID (rule out) 08/27/2020 08/28/2020 09/03/2020 9:08 PM EDT COVID (rule out) 04/22/2021 04/23/2021 04/29/2021 9:08 PM EDT documented as of this encounter Care Teams Mathematics Technician Relationship Specialty Start Date End Date Vicente Loyd MD [address] [facility] [address] [place] [address] PCP - General Internal Medicine 05/14/16 documented as of this encounter
--- OUTSIDE RECORDS SUMMARY | 2022-09-25 10:04 | XMS_ITS | Encounter Summary ---
[facility] Address [address] [place] [address] Care Team Providers Care Soapstoner Name Role Phone Vicente Loyd MD Primary Care Provider [phone] Encounter Details Date Type Department Care Team (Late st Contact Info) Description 09/25/2022 9:04 AM EST Hospital Encounter [facility] PULMONARY & CRITICAL CARE MEDICINE [address] [place] [phone] Social History Tobacco Use Types Packs/Day [...] on filedocumented in this encounter Care Teams Soapstoner Relationship Specialty Start Date End Date Vicente Loyd MD [address] [place] [facility] [address] [place] [address] PCP - General Internal Medicine 05/14/16 documented as of this encounter
--- OUTSIDE RECORDS SUMMARY | 2023-02-26 08:28 | XMS_ITS | Encounter Summary ---
[facility] [address] [place] [address] Care Team Providers Care Paving Plant Operator Name Role Phone Vicente Loyd MD Primary Care Provider [phone] Encounter Details Date Type Department Care Team (Late st Contact Info) Description 02/26/2023 8:28 AM EDT Hospital Encounter [facility] PULMONARY & CRITICAL CARE MEDICINE [address] [place] [phone] Social History Tobacco Use Types Packs/Day [...] findings. Chronic findings as above. No significant loom changeover operator prior films. Mitchell Paige MD us Mitchell Paige MD IMG DIAGNOSTIC IMAGING ORDERABLES Final Result documented in this encounter Visit Diagnoses Not on filedocumented in this encounter Care Teams Paving Plant Operator Relationship Specialty Start Date End Date Vicente Loyd MD [id number] [address] [place] [id number] PCP - General Internal Medicine 05/14/16 documented as of this encounter
--- OUTSIDE RECORDS SUMMARY | 2024-03-03 09:00 | XMS_ITS | Encounter Summary ---
[facility] Address [address] [place] [address] Care Team Providers Care Veneer Layer Name Role Phone Vicente Loyd MD Primary Care Provider [phone] Encounter Details Date Type Department Care Team (Late st Contact Info) Description 03/03/2024 9:00 AM EDT Hospital Encounter [facility] PULMONARY & CRITICAL CARE MEDICINE [address] [place] [phone] Social History Tobacco Use Types Packs/Day [...] Chronic findings as detailed above. No significant chemical cell changer 2022. Mitchell Paige MD Mitchell Paige MD IMG DIAGNOSTIC IMAGING ORDERABLES Final Result documented in this encounter Visit Diagnoses Not on filedocumented in this encounter Care Teams Veneer Layer Relationship Specialty Start Date End Date Vicente Loyd MD [facility] [address] [facility] [address] PCP - General Internal Medicine 05/14/16 documented as of this encounter
--- NOTE | 2025-07-14 11:09 | XR_ITS ---
PROCEDURE INFORMATION: Exam: XR Left Hip Exam date and time: 07/14/2025 11:12 AM Age: 84 years old Clinical indication: Hip pain; Left hip; Additional info: Left hip pain TECHNIQUE: Imaging protocol: Radiologic exam of the left hip. Views: 2 or 3 views hip with pelvis when performed. COMPARISON: CR XR HIP LT 2-3V W/PELVIS 11/20/2022 4:03 PM FINDINGS: Bones/joints: Degenerative changes in both hips and lumbar spine. There is no evidence of acute fracture.There is no evidence of malalignment or dislocation. Soft tissues: Unremarkable. IMPRESSION: There is no evidence of acute fracture.There is no evidence of malalignment or dislocation.
--- OUTSIDE RECORDS SUMMARY | 2025-07-14 11:10 | XMS_ITS | Clinical Summary ---
Author Organization [facility] Address [address] [place] [address] Care Team Providers Care Stamping Die Try Out Worker Name Role Phone Vicente Loyd MD Primary Care Provider [phone] Allergies Active Allergy Reactions Criticality Noted Date [...] MORNING Active vitamin D (ERGOCALCIFEROL) 1.25 MG (09378 UT) capsule capsule Take 1 capsule by [...] CAD (coronary artery disease) 04/29/2016 Overview (04/29/2016): [facility] 6-20-16, Susana Parmar Subtotal proximal occlusion of [...] reducing 90% stenosis to 0%. Non-ST elevation NV (NSTEMI) 04/27/2016 Hypertension 04/27/2016 Dyslipidemia 04/27/2016 Hypothyroid [...] Immunizations Immunization Administration Dates Next Due COVID-19 ([employer]) Purple Cap Monovalent 12/30/2020,12/09/2020 Fluad Quad 65+ [...] 03/03/2024, 0305/2018 Medical Devices Implanted Type Area Credit Authorizer Device Identifier Shelf Expiration Date Model / Serial / Lot Stent Xience Alpine Jeremias Rx [id number] - [id number] Implanted:Qty: 1 on 04/27/2016 by Susana Parmar MD at [facility] 12/29/2018 [id number] / / [id number] Stent Xience Alpine Jeremias Rx [id number] - [id number] Implanted:Qty: 1 on 04/27/2016 by Susana Parmar MD at [facility]ASCULAR 01/15/2019 [id number] / / [id number] Stent Xience Alpine Jeremias Rx [id number] - [id number] Implanted:Qty: 1 on 04/27/2016 by Susana Parmar MD at [facility]ULAR [id number] / / Procedures Procedure Name Priority Date/Time Associated Diagnosis Comments LIPID PANEL Routine 04/27/2016 10:36 PM EDT from Last 3 Months or Most Recently Relevant to Health Maintenance Results * (ABNORMAL) Once Lipid panel (04/27/2016 10:36 PM EDT) Total Cholesterol 235(H) 0 - 200 mg/dL 04/27/2016 11:23 PM EDT [facility] Triglycerides 236(H) 0 - 150 mg/dL 04/27/2016 11:23 PM EDT [facility] HDL Cholesterol 36(L) 40 - 60 mg/dL 04/27/2016 11:23 PM EDT [facility] VLDL Cholesterol 47.2 mg/dL 04/27/20 16 11:23 PM EDT [facility] LDL/HDL Ratio 4.22 04/27/2016 11:23 PM EDT [facility] LDL Cholesterol 128 0 - 130 mg/dL 04/27/2016 11:23 PM EDT [facility] Blood specimen (specimen) Line / Unknown 04/27/2016 10:36 PM EDT 04/27/2016 10:36 PM EDT [facility] - 04/27/2016 11:23 PM EDT Cholesterol [...] MD LAB BLOOD ORDERABLES Final Resul t [facility]
[address] [id number], [place] [phone] from Last 3 Months or Most Recently [...] 2:17 PM 04/27/2016 5:43 PM Care Teams Stamping Die Try Out Worker Relationship Specialty Start Date End Date Vicente Loyd MD [address] [facility] [address] [place] [id number] PCP - General Internal Medicine 05/14/16
--- OUTSIDE RECORDS SUMMARY | 2025-07-14 11:10 | XMS_ITS | Clinical Summary ---
Author Organization [employer] ([place], [place], [place], [place]) Address [address] [place] [address] Care Team Providers Care Supervisor Propellant Charge Loading Name Role Phone Vicente Loyd MD Primary Care Provider [phone] Social History Tobacco Use Types Packs/Day Years [...] Date Les rded Speak language other than Mosotho at home Not on file 11/19/2023 Want [...] therapy. RISK FACTORS: Estrogen deficiency. COMPARISON STUDY: [facility] FINDINGS: Bone densitometry was performed using a Advanced Image Enhancement unit. Sites measured included the spine and [...] therapy. RISK FACTORS: Estrogen deficiency. COMPARISON STUDY: [facility] FINDINGS: Bone densitometry was performed using a Advanced Image Enhancement unit. Sites measured included the spine and [...] Relevant to Health Maintenance Insurance [place] [id number] MEDICARE PART A B AETNA Care Teams Supervisor Propellant Charge Loading Relationship Specialty Start Date End Date Vicente Loyd MD [address] [place] [phone] PCP - General General Internal Medicine 06/18/23
--- OUTSIDE RECORDS SUMMARY | 2025-07-14 11:11 | XMS_ITS | Referral Summary ---
Author Organization [employer] ([place], [place], [place], [place]) Address [address] [place] [address] Care Team Providers Care Underwater Trapper Name Role Phone Vicente Loyd MD Primary Care Provider [phone] Social History Tobacco Use Types Packs/Day Years [...] Date Les rded Speak language other than Singaporean at home Not on file 11/19/2023 Want [...] therapy. RISK FACTORS: Estrogen deficiency. COMPARISON STUDY: [facility] FINDINGS: Bone densitometry was performed using a Videdressing unit. Sites measured included the spine and [...] therapy. RISK FACTORS: Estrogen deficiency. COMPARISON STUDY: [facility] FINDINGS: Bone densitometry was performed using a Videdressing unit. Sites measured included the spine and [...] examination in 2 years. Jennifer German MD [facility] [place] [place]AB[place] Final Result from Last 3 Months or Most Recently Relevant to Health Maintenance Insurance MEDICARE PART A B [employer] Care Teams Underwater Trapper Relationship Specialty Start Date End Date Vicente Loyd MD [address] [place] [id number] PCP - General General Internal Medicine 06/18/23
--- OUTSIDE RECORDS SUMMARY | 2025-07-14 11:11 | XMS_ITS | Encounter Summary ---
Author Organization [employer] ([place], [place], [place], [place]) Address [address] [place] [address] Care Team Providers Care Front End Developer Designer Name Role Phone Vicente Loyd MD Primary Care Provider [phone] Reason for Referral * DXA (Routine) - New Request Specialty Diagnoses / Procedures Referred By Contac t Referred To Contact Diagnoses Age-related osteoporosis without current pathological fracture Procedures DXA bone [place] [address] [place], [place] [id number] Phone: tel: fax: Referral ID Status Reason Start Date Expiration Date V isits Requested Visits Authorized [id number] New Request 08/22/2024 08/22/2025 1 1 Encounter Details Date Type Department Care Team (Late st Contact Info) Description 08/22/2024 Outside Orders [facility] Central Scheduling [address] [place] [id number] Jennifer German MD [facility] [place] [address] Age-related osteoporosis without current pathological fracture (Primary [...] Date Les rded Speak language other than Turkish at home Not on file 11/19/2023 Want [...] Primary documented in this encounter Care Teams Front End Developer Designer Relationship Specialty Start Date End Date Vicente Loyd MD [address] [place] [phone] PCP - General General Internal Medicine 06/18/23 documented as of this encounter
== END 2025-07-14 23:59 | disposition home or self-care (01) ==
LOC: RAD 11:09
PROVIDERS: PCP Internal Medicine; Visit Provider Orthopaedic Surgery
DX: M25.552 Pain in left hip (principal)
CPT/HCPCS: 73502

== ENCOUNTER 2025-08-17 18:54 | Emergency (ER) | payer MEDICARE, OTHER, SELFPAY ==
[2025-08-17] VITALS (10 sets, daily range): BP systolic 125–172; BP diastolic 54–87; PULSE 70–101; RESP 16–24; TEMP 36.6–36.9; O2SAT 93–100; BMI 24.7
--- NOTE | 2025-08-17 19:10 | ECG_ITS ---
APPROVED REPORT Exam: Resting ECG HR:80 bpm ECG Measurements Heart Rate 80 AXES MN 142 P 33 QRSd 114 QRS -56 QT 360 T 76 QTc 396 Conclusion Sinus rhythm Left axis Normal intervals No STEMI Electronically signed by : Beau Hutton, 08/18/2025 01:32:51
--- NOTE | 2025-08-17 19:12 | XR_ITS ---
PROCEDURE INFORMATION: Exam: XR Chest Exam date and time: 08/17/2025 7:30 PM Age: 84 years old Clinical indication: Shortness of breath; Additional info: SOA TECHNIQUE: Imaging protocol: Radiologic exam of the chest. Views: 1 view. COMPARISON: CR XR CHEST 2V 11/10/2023 4:15 PM FINDINGS: Lungs: Unremarkable. No consolidation. Pleural spaces: Unremarkable. No pleural effusion. No pneumothorax. Heart/Mediastinum: Unremarkable. No cardiomegaly. Bones/joints: Unremarkable. IMPRESSION: No acute findings.
[2025-08-17 19:25] LABS: Coronavirus 19, PCR Not Detected (NotDetected); Influenza A, PCR Not Detected (NotDetected); Influenza B, PCR Not Detected (NotDetected)
[2025-08-17 19:26] LABS: Hematocrit 43.3 % (37.0-47.0); Hemoglobin 13.8 g/dL (12.2-16.2); Immature Granulocytes % 0.3 %; Mean Corpuscular HGB Conc 31.9 g/dL (31.8-35.4); Mean Corpuscular Hemoglobin 29.6 pg (27.0-31.2); Mean Corpuscular Volume 92.7 fl (81-99); Nucleated Red Blood Cells % 0 %; Platelet Count 264 K/mm3 (142-424); Red Blood Count 4.67 M/mm3 (4.20-5.40); Red Cell Distribution Width-SD 53.9 fL; White Blood Count 9.1 K/mm3 (4.8-10.8)
[2025-08-17 19:41] LABS: Alanine Aminotransferase 19 U/L (12-78); Albumin Level 4.1 g/dl (3.5-5.0); Albumin/Globulin Ratio 1.4 (1.1-1.8); Alkaline Phosphatase 79 U/L (38-126); Anion Gap 15.6 mEq/L (5-15); Aspartate Amino Transferase 28 U/L (14-36); Bilirubin,Total 0.5 mg/dl (0.2-1.3); Blood Urea Nitrogen 12 mg/dl (7-17); Calcium 9.0 mg/dl (8.4-10.2); Carbon Dioxide 25 mmol/L (22.0-30.0); Chloride 102 mmol/L (98-107); Creatinine Clearance Estimated 45 mL/min (50-200); Creatinine,Serum 0.90 mg/dl (0.52-1.04); Estimated Glomerular Filt Rate 60 ml/min (>60); GFR (African American) 73 ML/MIN (>60); Globulin 2.9 g/dL (1.3-3.2); Glucose 133 mg/dl (74-100); Potassium 3.6 mmoL/L (3.5-5.1); Sodium 139 mmol/L (136-145); Total Protein,Serum 7.0 g/dl (6.3-8.2)
[2025-08-17 19:54] LABS: Troponin I < 0.01 ng/ml (0.00-0.034)
[2025-08-17 20:31] LABS: NT Pro Brain Natriuretic Pep. 144 pg/mL (0-450)
[2025-08-17] MEDS: IPRATROPIUM/ALBUTEROL 3 ML NEB 9 ML IH (20:49)
--- NOTE | 2025-08-17 21:32 | HMH.EDGENADL ---
Discharge Plan Disposition Patient Disposition: Home, Self-Care Condition: Good Prescriptions Prescriptions: New prednisone 20 mg tablet 40 mg PO DAILY 5 Days Qty: 10 0RF No Action ergocalciferol (vitamin D2) 1,250 mcg (50,000 unit) capsule 1,250 mcg PO DIRECTED Patient Comments: TAKE 1 (ONE) CAPSULE EVERY OTHER WEEK Rx Instructions: Every other week levofloxacin 500 mg tablet 500 mg PO DAILY Qty: 7 0RF Arnuity Ellipta 100 mcg/actuation blister with device 1 inh inhalation DAILY naproxen sodium 550 mg tablet 550 mg PO BID PRN (Reason: pain) Qty: 60 1RF Rx Instructions: Take with food or meal tizanidine 2 mg tablet 2 mg PO TID PRN (Reason: muscle spasticity) Qty: 30 1RF isosorbide mononitrate 30 MG tablet 30 mg PO DAILY albuterol sulfate [Ventolin HFA] 18 GM HFA aerosol inhaler 1 - 2 puffs inhalation Q4-6H PRN (Reason: Shortness Of Breath Or Wheezing) aspirin [Aspir-81] 81 MG tablet,delayed release (DR/EC) 1 tab PO DAILY rosuvastatin 40 mg tablet 40 mg PO DAILY Patient Comments: TAKE 1 TABLET BY MOUTH EVERY DAY Stiolto Respimat 2.5-2.5 mcg/actuation mist 2 puff inhalation DAILY Patient Comments: INHALE 2 PUFFS BY MOUTH EVERY DAY levothyroxine [Synthroid] 75 mcg tablet 75 mcg PO DAILY Patient Comments: TAKE 1 TABLET BY MOUTH EVERY DAY IN THE MORNING Referrals Follow up/Referrals: Vicente Loyd MD [Primary Care Provider, Medical] - See instructions Activity Restrictions/Add. Instructions Additional Instructions/Restrictions: Please take Prednisone 40 mg for the next 5 days. If you develop fevers, production of phlegm, difficulty breathing, or any other new or worsening symptoms please return to the ER for further evaluation. Clinical Impressions Clinical Impression: COPD exacerbation Print Language Print Language: Iranian Discharge ED Provider: Beau Hutton Adult HPI General Chief complaint: Upper Respiratory Infection Stated complaint: Oxygen in 70's Time Seen by Provider: 08/17/25 19:35 Mode of Arrival: Ambulatory Source of Information: Patient Description of Symptoms (Recalled from ER Triage Doc. by RN): Pt presents with c/o low o2 levels on pulse oximeter. Lowest level at home was 72. O2 in triage noted to be 97-98%. Pt states she feels short of breath, and has a decreased appetite. Pt has a hx of chronic bronchitis, and used her albuterol inhaler prior to coming in History of Present Illness HPI narrative: This is an 84-year-old female patient, with past medical history of hypertension, hypothyroidism, chronic kidney disease, coronary artery disease, and COPD, who is presenting to the emergency department today for evaluation of a low oxygen saturation recorded at home. The patient tells me that for the last several days she has had rhinorrhea and congestion as well as a recurrent cough. She is on nebulizer treatments and inhaled corticosteroids at home. She states that she actually saw her primary care physician on 08/15/2025 and was diagnosed with urinary tract infection as well as sinusitis. She was treated with levofloxacin for these symptoms. She was also given 80 mg of IM methylprednisolone. She states that since that time her symptoms have worsened and her cough has become more frequent. She is not producing excessive amounts of phlegm. She is not experiencing chest pain or overt shortness of breath. She does state that her chest feels somewhat tight. Additionally, this evening she was checking her oxygen saturation with a pulse oximeter and found that her oxygen saturation was 69%. Therefore she came here for further evaluation Related Data Home Medications ?Medication ?Instructions ?Recorded ?Confirmed albuterol sulfate 90 mcg/actuation 1 - 2 puffs inhalation Q4-6H PRN 10/12/18 08/17/25 aerosol inhaler (Ventolin HFA) Shortness Of Breath Or Wheezing isosorbide mononitrate 30 mg 30 mg PO DAILY Heart disease 10/12/18 08/17/25 tablet,extended release 24 hr aspirin 81 mg tablet,delayed 1 tab PO DAILY thinner 10/14/18 08/17/25 release (Aspir-) rosuvastatin 40 mg tablet 40 mg PO DAILY . 05/01/23 08/17/25 tiotropium 2.5 mcg-olodaterol 2.5 2 puff inhalation DAILY COPD 05/01/23 08/17/25 mcg/actuation mist for inhalation (Stiolto Respimat) ergocalciferol (vitamin D2) 1,250 1,250 mcg PO DIRECTED 06/26/24 08/17/25 mcg (50,000 unit) capsule fluticasone furoate 100 1 inh inhalation DAILY 04/25/25 08/17/25 mcg/actuation blister powder for inhalation (Arnuity Ellipta) levothyroxine 75 mcg tablet 75 mcg PO DAILY 08/17/25 08/17/25 (Synthroid) Previous Rx's ?Medication ?Instructions ?Recorded naproxen sodium 550 mg tablet 550 mg PO BID PRN pain #60 tabs 12/26/24 tizanidine 2 mg tablet 2 mg PO TID PRN muscle spasticity 02/14/25 #30 tabs levofloxacin 500 mg tablet 500 mg PO DAILY #7 tabs 08/15/25 prednisone 20 mg tablet 40 mg (2 x 20 mg) PO DAILY 5 days 08/17/25 #10 tabs Allergies Allergy/AdvReac Type Severity Reaction Status Date / Time propoxyphene Allergy Unknown Rash Verified 08/15/25 12:45 doxycycline Allergy Rash Verified 08/15/25 12:45 tetracycline Allergy Rash Verified 08/15/25 12:45 [facility] Disclaimer: The information contained in this section may have been updated after the patient was seen, as this information can be updated by other users. Social History Smoking Status: Never smoker alcohol intake: never current occupational status: retired Travel in the last 8 weeks?: Inside the [place] housing: house caffeine: No Have you lived/traveled outside [place] in past 30 days?: No Contact w/someone who lives/traveled outside US past 30 days?: No Exposure to someone with infectious disease in past 14 days?: No Do you have a fever (greater than 100.4 F or 38 C)?: No Have you tested positive for COVID-19?: No Exposed to someone with COVID-19 in past 14 days?: No Do you have a sore throat?: No Do you have a cough?: No Do you have any weakness?: No Do you have any diarrhea?: No Are you experiencing any unusual bleeding?: No Do you have any muscle aches/pain?: No Do you have any abdominal pain?: No Are you experiencing loss of taste or smell?: No Other Medical History Have you received the Pneumonia Vaccine: Yes ROS Obtained: Yes Systems reviewed as appropriate & no additional complaints except as documented Physical Exam General General appearance: other (See MDM) Respiratory Respiratory exam: Present other (See MDM) Cardiovascular Cardiovascular exam: Present other (See MDM) Neurological Exam Neurological exam: Present other (See MDM) Medical Decision Making Medical Records Medical records reviewed: Yes I reviewed the patient's medical records. Screening: Per USPSTF and CDC recommendations, given the prevalence of disease in our region, it is our hospital?s policy to screen for HIV and viral Hepatitis for all patients aged 18 and over and those with ongoing risk factors. Scott Inquiry Pt receiving controlled substance: No Scott was queried for this patient: No Vital Signs: 08/17/25 18:58 08/17/25 19:31 08/17/25 20:01 Temperature 98.5 F Temperature Source Temporal Artery Scan Pulse Rate 70 Pulse Rate [Right] 80 Respiratory Rate 24 24 18 Blood Pressure 137/75 172/81 H Blood Pressure [Right Arm] 158/87 H Blood Pressure Mean 95 Blood Pressure Mean [Right Arm] 110 Blood Pressure Source [Right Arm] Automatic Cuff Blood Pressure Position [Right Arm] Sitting 02 Sat by Pulse Oximetry 98 97 93 L Oxygen Delivery Method Room Air 08/17/25 20:30 08/17/25 20:50 08/17/25 21:00 Temperature Temperature Source Pulse Rate 78 Pulse Rate [Right] Respiratory Rate 16 22 Blood Pressure 159/79 H 132/68 Blood Pressure [Right Arm] Blood Pressure Mean Blood Pressure Mean [Right Arm] Blood Pressure Source [Right Arm] Blood Pressure Position [Right Arm] 02 Sat by Pulse Oximetry 96 96 100 Oxygen Delivery Method Room Air 08/17/25 21:30 Temperature Temperature Source Pulse Rate 92 H Pulse Rate [Right] Respiratory Rate 19 Blood Pressure 136/63 Blood Pressure [Right Arm] Blood Pressure Mean Blood Pressure Mean [Right Arm] Blood Pressure Source [Right Arm] Blood Pressure Position [Right Arm] 02 Sat by Pulse Oximetry 97 Oxygen Delivery Method Lab Data Lab Results 08/17/25 19:01: WBC 9.1, RBC 4.67, Hgb 13.8, Hct 43.3, MCV 92.7, MCH 29.6, MCHC 31.9, RDW 15.9, Plt Count 264, MPV 9.4, Neut % (Auto) 54.6, Lymph % (Auto) 32.6, [place] % (Auto) 10.0 H, Eos % (Auto) 1.9, Baso % (Auto) 0.6, Neut # (Auto) 5.0, Lymph # (Auto) 3.0, [place] # (Auto) 0.9, Eos # (Auto) 0.2, Baso # (Auto) 0.1, Sodium 139, Potassium 3.6, Chloride 102, Carbon Dioxide 25, Anion Gap 15.6 H, BUN 12, Creatinine 0.90, Estimated Creat Clear 45, Estimated GFR 60, Est GFR ( Amer) 73, Glucose 133 H, Calcium 9.0, Total Bilirubin 0.5, AST 28, ALT 19, Alkaline Phosphatase 79, Troponin I < 0.01, NT-Pro-B Natriuret Pep 144, Total Protein 7.0, Albumin 4.1, Globulin 2.9, Albumin/Globulin Ratio 1.4, SARS-CoV-2 (PCR) Not detected, Influenza A Untype (PCR) Not detected, Influenza Type B (PCR) Not detected 08/17/25 19:01 08/17/25 19:01 Orders (Tests/Meds): ED MEDICATIONS Discontinued Medications Generic Name Dose Route Start Last Admin Trade Name Freq PRN Reason Stop Dose Admin Albuterol/Ipratropium 9 ml 08/17/25 20:03 08/17/25 20:49 Ipratropium/Albuterol 3 Ml Neb IH 08/17/25 20:04 9 ml ONCE ONE Administration Prednisone 60 mg 08/17/25 21:59 08/17/25 22:14 Prednisone 20mg Tab PO 08/17/25 22:00 60 mg ONCE ONE Administration ORDERS Category Date Time Status POCUS Point of Care (ER Only) Stat Exams 08/17/25 19:22 Completed XR chest portable Stat Exams 08/17/25 19:12 Completed BNP [NT Pro Brain Natriuretic Pep.] Stat Lab 08/17/25 19:01 Completed Complete Blood Count Auto Diff Stat Lab 08/17/25 19:01 Completed Comprehensive Metabolic Panel Stat Lab 08/17/25 19:01 Completed Rapid PCR Covid and Flu A/B Stat Lab 08/17/25 19:01 Completed Troponin I Q3H Lab 08/17/25 22:15 Ordered Troponin I Q3H Lab 08/18/25 01:15 Ordered Troponin I Stat Lab 08/17/25 19:01 Completed ECG Data Tracing #1: I reviewed this ECG and interpreted as documented below: EKG personally turbid by me demonstrates normal sinus rhythm at a rate of 80 bpm, left axis, no MT prolongation, narrow QRS, no QTc prolongation. No ST elevation or depression. No overt signs of ischemia or arrhythmia Medical Decision Narrative: In summary, this is an 84-year-old female patient who is presenting to the emergency department today for several days of rhinorrhea and congestion with a worsening cough. Cough is nonproductive. Her comorbidities include a past medical history of hypertension, hyperlipidemia, hypothyroidism, CAD, and COPD. On initial evaluation of the patient they were resting comfortably in no acute distress and nontoxic in appearance. They are hemodynamically stable, saturating well room air, and are neurologically intact. On physical examination the patient has end-expiratory wheezing appreciated in all of her lung mayo bilaterally. She is not using accessory muscles and she is not profoundly tachypneic. Otherwise her heart is clear to auscultation bilaterally. She has no abdominal tenderness to palpation. She does have rhinorrhea and congestion noted in her bilateral nares. Differential diagnosis includes viral syndrome, COPD exacerbation, heart failure, ACS/DE, among others Workup was initiated with hematologic labs as well as a chest x-ray. We have treated the patient with 3 DuoNebs as well as 60 mg of prednisone as well. Labs were personally interpreted by me and demonstrate no evidence of leukocytosis or anemia. She has no significant electrolyte derangements or evidence of acute kidney injury. Troponin is less than 0.01. She is not experiencing chest pain so we have discontinued the second troponin. Additionally, she is negative for COVID and influenza. Chest x-ray was personally interpreted by me and demonstrates no lobar consolidation or pleural effusion. Official radiology read is in agreement and states that there is no acute abnormality. I did perform bedside POCUS assessment which shows that her EF is normal and she has no evidence of right heart strain. My overall impression is that this patient is likely experiencing a viral syndrome that is caused a COPD exacerbation. We will treat her with a 5-day course of prednisone 40 mg and have her continue her nebulizer treatments at home. I have given return precautions in the event that she experiences worsening shortness of breath, production of phlegm, or any other new or worsening symptoms. We will have her continue taking her Levaquin instead of providing her with azithromycin. At this time all questions have been answered and all parties are agreeable with the decision to discharge home Procedures Miscellaneous Procedure Procedure Performed: Limited cardiac ultrasound note Indication: Shortness of breath Identified cardiac views: [Cardiac parasternal long axis] [Cardiac parasternal short axis] [Cardiac apical four-chamber] [Cardiac subxiphoid] Findings: Cardiac activity: Present Gross wall motion: Normal Pericardial effusion: Absent Right heart strain: Absent Impression: Normal limited cardiac echo with no evidence of right heart strain and normal ejection fraction Images were saved to permanent archive This study was technically adequate CPT: 93050 This study was performed by me and I personally interpreted all images/videos. Based on my clinical judgment these images were adequate and did not necessitate further imaging. Critical Care Critical Care Time Critical Care Time: No
== END 2025-08-17 22:46 | disposition home or self-care (01) ==
PROVIDERS: Emergency Provider Student in an Organized Health Care Education/Training Program; PCP Internal Medicine
DX: J44.1 Chronic obstructive pulmonary disease with (acute) exacerbation (principal); R09.02 Hypoxemia
CPT/HCPCS: 71045; 80053; 83880; 84484; 85025; 87636; 93005; 99284

== ENCOUNTER 2025-08-18 00:18 | Observation (INO) | payer MEDICARE, OTHER, SELFPAY ==
--- OUTSIDE RECORDS SUMMARY | 2019-12-19 10:42 | XMS_ITS | Encounter Summary ---
[facility] Address [address] [place] [address] Care Team Providers Care Furniture Builder Name Role Phone Vicente Loyd MD Primary Care Provider [phone] Encounter Details Date Type Department Care Team (Late st Contact Info) Description 12/19/2019 9:42 AM EST Hospital Encounter [facility] PULMONARY & CRITICAL CARE MEDICINE [address] [place] [phone] Social History Tobacco Use Types Packs/Day [...] PA AND LATERAL- 12/19/2019 INDICATION: SEE DIAGNOSIS; [id number] COMPARISON: 04/03/2016 FINDINGS: PA and lateral views [...] PA AND LATERAL- 12/19/2019 INDICATION: SEE DIAGNOSIS; [id number] COMPARISON: 04/03/2016 FINDINGS: PA and lateral views [...] documented as of this encounter Care Teams Furniture Builder Relationship Specialty Start Date End Date Vicente Loyd MD [address] [facility] [address] [place] [address] PCP - General Internal Medicine 05/14/16 documented as of this encounter
--- OUTSIDE RECORDS SUMMARY | 2022-09-25 10:04 | XMS_ITS | Encounter Summary ---
[facility] Address [address] [place] [address] Care Team Providers Care Carpenter Name Role Phone Vicente Loyd MD Primary Care Provider [phone] Encounter Details Date Type Department Care Team (Late st Contact Info) Description 09/25/2022 9:04 AM EST Hospital Encounter [facility] PULMONARY & CRITICAL CARE MEDICINE [address] [place] [phone] Social History Tobacco Use Types Packs/Day [...] on filedocumented in this encounter Care Teams Carpenter Relationship Specialty Start Date End Date Vicente Loyd MD [address] [place] [facility] [address] [place] [id number] PCP - General Internal Medicine 05/14/16 documented as of this encounter
--- OUTSIDE RECORDS SUMMARY | 2023-02-26 08:28 | XMS_ITS | Encounter Summary ---
[facility] [address] [place] [address] Care Team Providers Care Welt Slasher Name Role Phone Vicente Loyd MD Primary Care Provider [phone] Encounter Details Date Type Department Care Team (Late st Contact Info) Description 02/26/2023 8:28 AM EDT Hospital Encounter [facility] PULMONARY & CRITICAL CARE MEDICINE [address] [place] [phone] Social History Tobacco Use Types Packs/Day [...] findings. Chronic findings as above. No significant regional climate change analyst prior films. Mitchell Paige MD us Mitchell Paige MD IMG DIAGNOSTIC IMAGING ORDERABLES Final Result documented in this encounter Visit Diagnoses Not on filedocumented in this encounter Care Teams Welt Slasher Relationship Specialty Start Date End Date Vicente Loyd MD [facility]0 [facility] [address] [place] [id number] PCP - General Internal Medicine 05/14/16 documented as of this encounter
--- OUTSIDE RECORDS SUMMARY | 2024-03-03 09:00 | XMS_ITS | Encounter Summary ---
[facility] [address] [place] [address] Care Team Providers Care Senior Care Provider Name Role Phone Vicente Loyd MD Primary Care Provider [phone] Encounter Details Date Type Department Care Team (Late st Contact Info) Description 03/03/2024 9:00 AM EDT Hospital Encounter [facility] PULMONARY & CRITICAL CARE MEDICINE [address] [place] [phone] Social History Tobacco Use Types Packs/Day [...] Comments XR CHEST PA AND LATERAL Routine 03/03/2024 9:06 AM EDT Moderate COPD (chronic obstructive pulmonary disease) documented in this encounter Results * XR Chest PA & Lateral (03/03/2024 9:06 AM EDT) Anatomical Region Laterality Modality Body, Chest N/A Radiographic Genesis ging Narrative 03/03/2024 10:39 AM EDT Indication: Dyspnea on exertion Chest x-ray PA and lateral was performed on this date and compared to a prior study of 02/26/2023. Findings: The cardiac silhouette is within normal limits in size. There is probably mild hyperinflation. There is mild prominence of the interstitial pattern. There are some scattered tiny calcified granulomas. There is scarring/atelectasis in the right middle lobe with the lingula as seen on the lateral film unchanged from 1 year prior. Impression: No acute cardiopulmonary findings. Chronic findings as detailed above. No significant exchange clerk 2022. Mitchell Paige MD Mitchell Paige MD IMG DIAGNOSTIC IMAGING ORDERABLES Final Result documented in this encounter Visit Diagnoses Not on filedocumented in this encounter Care Teams Senior Care Provider Relationship Specialty Start Date End Date Vicente Loyd MD [facility] [address] [facility] [address] PCP - General Internal Medicine 05/14/16 documented as of this encounter
[2025-08-18] VITALS (15 sets, daily range): BP systolic 135–162; BP diastolic 53–85; PULSE 70–98; RESP 16–24; TEMP 36.6–36.9; O2SAT 93–97; BMI 23.9; BMI 24.5
--- OUTSIDE RECORDS SUMMARY | 2025-08-18 00:28 | XMS_ITS ---
Author Organization [facility] , 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 Lower Back Pain 08/19/2018 Hernando Kearney MD Act scot Last Documented On 8 9:16AM ; [facility], [facility] Joint Pain Wrist Right 07/27/2016 Hernando Kearney MD Inactive Last Documented On 8 9:16AM ; [facility], [facility] Plan of Treatment Instructions to patient No intervention and counseli ng on cessation of tobacco use Last Documented On 2 10:30AM ; [facility], [facility] Lose weight Last Documented On 2 10:31AM ; [facility], [facility] Assessments Includes: Assessments for all patient encounters No Assessments Recorded Instructions Includes: Instructions for all patient encounters Instructions to patient No intervention and counseli ng on cessation of tobacco use Last Documented On 2 10:30AM ; [facility], [facility] Lose weight Last Documented On 2 10:31AM ; [facility], [facility] Medical Equipment - Implanted Devices Includes: Current and historical Devices No Medical Equipment Recorded Medications Includes: Current and historical Medications Current Medications (continue as prescribed) Flovent Diskus 50 MCG/BLIST Inhalation Aerosol Powder Breath Activated 04/13/2022 Provider: Diagnosis: Last Documented On 2 11:15AM By Kimberyl Shaffer ; [facility] Adult Aspirin EC Low Strengt h 81 MG Oral Tablet Delayed Release 04/13/2022 Provider: Diagnosis: Last Documented On 2 11:15AM By Kimberly Shaffer ; [facility], [facility] Stiolto Respimat 2.5-2.5 MCG/ACT Inhalation Aero rojelio Solution 02/17/2022 Provider: Diagnosis: Last Documented On 2 9:44AM By Kimberly Sargent ; [facility], [facility] Vitamin D (Ergocalciferol) 1 .25 MG (21285 UT) Oral Capsule 02/11/2022 Provider: SARITHA MCKEON MD Diagnosis: Last Documented On 2 9:44AM By Kimberly Sargent ; [facility], [facility] Vitamin D (Ergocalciferol) 1 .25 MG (63987 UT) Oral Capsule 02/11/2022 Provider: SARITHA MCKEON MD Diagnosis: Last Documented On 2 9:44AM By Kimberly Sargent ; [facility], [facility] Isosorbide Mononitrate ER 30 MG Oral Tablet Extended Release 24 Hour 02/04/2022 Provider: ZEB CHRISTENSEN MD Diagnosis: Last Documented On 2 9:44AM By Kimberly Sargent ; [facility], [facility] Rosuvastatin Calcium 40 MG Oral Tablet 02/04/2022 Pr ovider: ZEB JOHNSON MD Diagnosis: Last Documented On 2 9:44AM By Kimberly Sargent ; [facility], [facility] Synthroid 75 MCG Oral Tablet 02/03/2022 Provider: Diagnosis: Last Documented On 2 9:44AM By Kimberly Sargent ; [facility], [facility] Past Medications on file Ibuprofen 400 MG Oral Tablet 06/08/2022 - 06/11/2022 Mary Jo aleman: Zeb King MD Diagnosis: Take 1 tablet every 8 hrs prn pain Last Documented On 2 5:02PM By Minerva Blood ; [facility], [facility] Synthroid 75 MCG Tablet 07/27/2016 - 04/13/2022 Provid er: Diagnosis: Last Documented On 2 9:43AM By Kimberly Sargent ; [facility], [facility] Aspirin 81 MG Tablet, chewable 07/27/2016 - 04/13/2022 Provider: Diagnosis: Last Documented On 2 9:42AM By Kimberly Sargent ; [facility], [facility] Clopidogrel Bisulfate 300 MG Tablet 07/27/2016 - 04/13 Provider: Diagnosis: Last Documented On 2 9:43AM By Kimberly Sargent ; [facility], [facility] Isosorbide Mononitrate ER 30 MG Tablet, extended-release 24 hour 07/27/2016 - 04/13/2022 Provider: Diagnosis: Last Documented On 2 9:43AM By Kimberly Sargent ; [facility], [facility] Atorvastatin Calcium 80 MG Tablet 07/27/2016 - 022 Provider: Diagnosis: Last Documented On 2 9:42AM By Kimberly Sargent ; [facility], [facility] Combivent Respimat 20-100 MC G/ACT Aerosol, solution 07/27/2016 - 04/13/2022 Provider: Diagnosis: Last Documented On 2 9:43AM By Kimberly Sargent ; [facility], [facility] Citracal Plus Tablet 07/27/2016 - 04/13/2022 Provider: Diagnosis: Last Documented On 2 9:43AM By Kimberly Sargent ; [facility], [facility] CVS Iron 325 (65 Fe) MG Tablet 07/27/2016 - 04/13/2022 Provider: Diagnosis: Last Documented On 2 9:43AM By Kimberly Sargent ; [facility], [facility] Forteo 600 mcg/2.4ml Injection (not specified) 0 07/27/2016 - 04/13/2022 Provider: Diagnosis: Last Documented On 2 9:43AM By Kimberly Sargent ; [facility], [facility] Carvedilol 3.125 MG Tablet 07/27/2016 - 04/13/2022 Pro vider: Diagnosis: Last Documented On 2 9:42AM By Kimberly Sargent ; [facility], [facility] Asmanex 120 Metered Doses 22 0 MCG/INH Aerosol Powder Breath Activated 07/27/2016 - 04/13/2022 Provider: Diagnosis: Last Documented On 2 9:42AM By Kimberly Sargent ; [facility], [facility] Medications Administered Includes: Administered Medications in patient's chart No Administered Medications Recorded Results Includes: Results from 08/18/2024 through 08/18/2025 No Results Recorded For Specified Dates History of Present Illness History of Present Illness not supported for this document type No History of Present Illness Recorded Social History Description Last Updated Not a smoker 06/22/2022 Last Documented On 2 10:46AM ; [facility], [facility] Caffeine use 06/22/2022 Last Documented On 2 10:46AM ; [facility], [facility] Exercising regularly 06/22/2022 Last Documented On 2 10:46AM ; [facility], [facility] No recent change in diet 06/22/2022 Last Documented On 2 10:46AM ; [facility], [facility] No recent change in diet 06/22/2022 Last Documented On 2 10:46AM ; [facility], [facility] No tobacco use 06/22/2022 Last Documented On 2 10:46AM ; [facility], [facility] Non-smoker 06/22/2022 Last Documented On 2 10:46AM ; [facility], [facility] Not a current smoker 06/22/2022 Last Documented On 2 10:46AM ; [facility], [facility] Not a current smoker. 06/22/2022 Last Documented On 2 10:46AM ; [facility], [facility] Not using alcohol 06/22/2022 Last Documented On 2 10:46AM ; [facility], [facility] Not using drugs 06/22/2022 Last Documented On 2 10:46AM ; [facility], [facility] Smoking status : Never smoker 06/22/2022 Last Documented On 2 10:46AM ; [facility], [facility] Procedures and Surgical History Surgical History Last Updated History of heart surgery 3 stents 6/16 0 06/22/2022 Last Documented On 2 10:46AM ; [facility], [facility] Medical History Includes: Medical History in patient's chart Description Last Updated Past medical history non-con tributory: ~Hyperlipidemia ~Acid Reflux ~Graves disease ~COPD 06/22/2022 Last Documented On 2 10:46AM ; [facility], [facility] A previous fracture Right elbow, right m iddle finger 06/22/2022 Last Documented On 2 10:46AM ; [facility], [facility] History of acute myocardial infarction H eart attack 06/22/2022 Last Documented On 2 10:46AM ; [facility], [facility] History of asthma 06/22/2022 Last Documented On 2 10:46AM ; [facility], [facility] History of Heartburn / Acid Reflux 06/22 Last Documented On 2 10:46AM ; [facility], [facility] History of History of Heart Attack / Str zak 06/22/2022 Last Documented On 2 10:46AM ; [facility], [facility] History of osteoporosis 06/22/2022 Last Documented On 2 10:46AM ; [facility], [facility] History of Thyroid Disease 06/22/2022 Last Documented On 2 10:46AM ; [facility], [facility] No recent immunization for flu 2 Last Documented On 2 10:46AM ; [facility], [facility] No recent immunization for pneumococcal pneumonia 06/22/2022 Last Documented On 2 10:46AM ; [facility], [facility] Past Surgical History: stent placement 0 06/22/2022 Last Documented On 2 10:46AM ; [facility], [facility] Thyroid disease hyper 06/22/2022 Last Documented On 2 10:46AM ; [facility], [facility] Family History Includes: Family History in patient's chart Description Last Updated Paternal history of heart attack, matern al history of stroke 07/25/2021 Last Documented On 1 1:02PM ; [facility], [facility] Family history of heart disease 07/25/20 21 Last Documented On 1 1:02PM ; [facility], [facility] Review of Systems Review of Systems not supported for this document type No Review of Systems Recorded Mental Status Description No anxiety Functional Status No Functional Status Recorded Physical Exam Physical Exam not supported for this document type No Physical Exam Recorded Allergies Includes: Active, inactive, and resolved Allergies Substance Type Reaction Onset Date Resolved Date Statu s Tetracycline HCl Allergy 10/20/2018 Ac tive Last Documented On 2 10:28AM ; [facility], [facility] Propoxyphene Allergy 04/13/2022 Active Last Documented On 2 10:28AM ; [facility], [facility] Doxycycline Hyclate Allergy 04/13/2022 Active Last Documented On 2 10:28AM ; [facility], [facility] Darvon Allergy 10/20/2018 Active Last Documented On 2 10:28AM ; [facility], [facility] Insurance Includes: Active Insurance Policies Plan Name Member ID Group # Subscriber Relationship Effect scot Dates 1 - Medicare Part B [place] [id number] Nuzhat Bae Self 08/08/2007 - Unknown 2 - MHBP [id number] Nuzhatcara Bae Self 11/08/2020 - Unknown Clinical Notes Includes: Signed Clinical Notes starting from 10/22/2022 No Clinical Notes Recorded
--- OUTSIDE RECORDS SUMMARY | 2025-08-18 00:29 | XMS_ITS | Clinical Summary ---
Author Organization [facility] , [facility] Address [address] [place] [address] Phone Care Team Providers Care Schedule Clerk Name Role Phone Caio RIVERA, Hernando Young Unavailable [phone] FE RIVERA, CELI Bennett Primary Care Provider [phone] Reason for Referral Date Encounter Description Provider Reason for Referral 06/22/22 Post Op Billie King MD Referra l To Physician Reason for Visit and Chief Complaint The Chief Complaint is: RRF pain Problems Includes: Problems addressed during this encounter and other active Problems Current Visit Onset Date Resolved Date Provider Conditio n Status Lower Back Pain 08/19/2018 Hernando Kearney MD Act scot Last Documented On 8 9:16AM ; [facility], [facility] Past Visits Onset Date Resolved Date Provider Condition Status Soft Tissue Pain Hand 04/02/2021 Billie fierro MD Active Last Documented On 1 8:13AM ; [facility], [facility] Plan of Treatment Patient is doing well postoperatively. We will see her back as needed. - Last Documented On 06/26/2022 10:46AM ; [facility], [facility] Instructions to patient No intervention and counseli ng on cessation of tobacco use Last Documented On 2 10:30AM ; [facility], [facility] Lose weight Last Documented On 2 10:31AM ; [facility], [facility] Assessments Includes: Assessments from this encounter No Assessments Recorded Instructions Includes: Instructions from this encounter Instructions to patient No intervention and counseli ng on cessation of tobacco use Last Documented On 2 10:30AM ; [facility], [facility] Lose weight Last Documented On 2 10:31AM ; [facility], [facility] Medical Equipment - Implanted Devices Includes: Current Devices No Medical Equipment Recorded Medications Includes: Medications discussed during this encounter and other current Medications Current Medications (continue as prescribed) Flovent Diskus 50 MCG/BLIST Inhalation Aerosol Powder Breath Activated 04/13/2022 Provider: Diagnosis: Last Documented On 2 11:15AM By Kimberly Shaffer ; [facility] Adult Aspirin EC Low Strengt h 81 MG Oral Tablet Delayed Release 04/13/2022 Provider: Diagnosis: Last Documented On 2 11:15AM By Kimberly Shaffer ; [facility] Stiolto Respimat 2.5-2.5 MCG/ACT Inhalation Aero rojelio Solution 02/17/2022 Provider: Diagnosis: Last Documented On 2 9:44AM By Kimberly Julian [facility] Vitamin D (Ergocalciferol) 1 .25 MG (31484 UT) Oral Capsule 02/11/2022 Provider: SARITHA MCKEON MD Diagnosis: Last Documented On 2 9:44AM By Kimberly Julian [facility] Vitamin D (Ergocalciferol) 1 .25 MG (33841 UT) Oral Capsule 02/11/2022 Provider: SARITHA MCKEON MD Diagnosis: Last Documented On 2 9:44AM By Kimberly Sargent ; [facility] Isosorbide Mononitrate ER 30 MG Oral Tablet Extended Release 24 Hour 02/04/2022 Provider: BILLIE CHRISTENSEN MD Diagnosis: Last Documented On 2 9:44AM By Kimberly Julian [facility] Rosuvastatin Calcium 40 MG Oral Tablet 02/04/2022 Pr ovider: BILLIE JOHNSON MD Diagnosis: Last Documented On 2 9:44AM By Kimberly Sargent ; [facility] Synthroid 75 MCG Oral Tablet 02/03/2022 Provider: Diagnosis: Last Documented On 2 9:44AM By Kimberly Sargent ; [facility] Past Medications on file Ibuprofen 400 MG Oral Tablet 06/08/2022 - 06/11/2022 Mary Jo aleman: Billie King MD Diagnosis: Take 1 tablet every 8 hrs prn pain Last Documented On 2 5:02PM By Minerva Blood ; [facility], [facility] Medications Administered Includes: Administered Medications from this encounter No Administered Medications Recorded Vital Signs Includes: Vital Signs from this encounter Vital Name 06/22/2022 10:29A Blood Pressure Sitting (mmHg) 143/74 Pulse Rate-Sitting (bpm) 71 Height (in) 65 Weight (lb) 150 Body Mass Index (kg/m2) 25.0 Body Surface Area (m2) 1.8 Note: SNM Last Documented: On 06/22/2022 10:31A M ; [facility] Results Includes: Results discussed during this encounter No Results Recorded For Specified Dates History of Present Illness Includes: History of Present Illness from this encounter JOSE ALBERTO Bae is a 81 year old female. - Allergy list reviewed - Problem list reviewed - Medication reconciliation performed - Medication list reviewed - Medication list reviewed with patient Patient is here today status post right ring finger trigger finger release. Her surgery was on 06/09/2022. She is doing well today. She has no triggering of the fingers. Social History Description Last Updated Not a smoker 06/22/2022 Last Documented On 2 10:46AM ; [facility] Caffeine use 06/22/2022 Last Documented On 2 10:46AM ; [facility] Exercising regularly 06/22/2022 Last Documented On 2 10:46AM ; [facility] No recent change in diet 06/22/2022 Last Documented On 2 10:46AM ; [facility] No recent change in diet 06/22/2022 Last Documented On 2 10:46AM ; [facility] No tobacco use 06/22/2022 Last Documented On 2 10:46AM ; [facility] Non-smoker 06/22/2022 Last Documented On 2 10:46AM ; [facility] Not a current smoker 06/22/2022 Last Documented On 2 10:46AM ; [facility] Not a current smoker. 06/22/2022 Last Documented On 2 10:46AM ; [facility] Not using alcohol 06/22/2022 Last Documented On 2 10:46AM ; [facility] Not using drugs 06/22/2022 Last Documented On 2 10:46AM ; [facility], [facility] Smoking status : Never smoker 06/22/2022 Last Documented On 2 10:46AM ; [facility], [facility] Procedures and Surgical History Includes: Procedures from this encounter Procedures Code Diagnosis Performing Provider Service L ocation Service Date history of orthopedic options: physical therapy Last Documented On 2 10:28AM ; [facility] no intervention and counseling on cessation of t obacco use 4000F Last Documented On 2 10:30AM ; [facility] use of tobacco assessment performed 1000F Last Documented On 2 10:30AM ; [facility], [facility] patient screened for future fall risk 3288F Last Documented On 2 10:30AM ; [facility] follow-up visit in one month with PCP fo r elevated BP Last Documented On 2 10:31AM ; [facility], [facility] referral to physician Last Documented On 2 10:31AM ; [facility] Surgical History Last Updated History of heart surgery 3 stents 04/23 0 06/22/2022 Last Documented On 2 10:46AM ; [facility], [facility] Medical History Includes: Medical History addressed during this encounter Description Last Updated chronic bronchitis 06/22/2022 Last Documented On 2 10:46AM ; [facility] Past medical history non-con tributory: ~Hyperlipidemia ~Acid Reflux ~Graves disease ~COPD 06/22/2022 Last Documented On 2 10:46AM ; [facility] A previous fracture Right elbow, right m iddle finger 06/22/2022 Last Documented On 2 10:46AM ; [facility], [facility] History of acute myocardial infarction H eart attack 06/22/2022 Last Documented On 2 10:46AM ; [facility] History of asthma 06/22/2022 Last Documented On 2 10:46AM ; [facility], [facility] History of Heartburn / Acid Reflux 06/22 Last Documented On 2 10:46AM ; [facility], [facility] History of History of Heart Attack / Str zak 06/22/2022 Last Documented On 2 10:46AM ; [facility], [facility] History of osteoporosis 06/22/2022 Last Documented On 2 10:46AM ; [facility], [facility] History of Thyroid Disease 06/22/2022 Last Documented On 2 10:46AM ; [facility], [facility] No recent immunization for flu 2 Last Documented On 2 10:46AM ; [facility], [facility] No recent immunization for pneumococcal pneumonia 06/22/2022 Last Documented On 2 10:46AM ; [facility], [facility] Past Surgical History: stent placement 0 06/22/2022 Last Documented On 2 10:46AM ; [facility] Thyroid disease hyper 06/22/2022 Last Documented On 2 10:46AM ; [facility], [facility] Family History Includes: Family History addressed during this encounter No Family History Recorded Review of Systems Includes: Review of Systems from this encounter Systemic: Not feeling tired, no recent weight loss, and no recent weight gain. No edema. Head: No headache and no sinus pain. Eyes: Vision problems. No vision problems and no glaucomatous visual field defect. Otolaryngeal: No hearing loss and no tinnitus. No nasal symptoms. Cardiovascular: No chest pain or discomfort and no palpitations. Pulmonary: No daytime asthma symptoms, no cough, and no chronic cough. Wheezing COPD. Gastrointestinal: No heartburn and no abdominal pain. Endocrine: No hot flashes and no muscle weakness. Hematologic: No easy bleeding and no tendency for easy bruising. Musculoskeletal: No lower back pain. No soft tissue swelling. Pain localized to one or more joints Right shoulder and right wrist. Neurological: No dizziness, no convulsions, and no numbness. Psychological: No anxiety, no emotional lability, no depression, and no insomnia. Not crying for no reason. Skin: No dry skin, no rash, and no ulcers. Allergic and Immunologic: No complaint of seasonal allergic reaction. reviewed 06/22/22 The patient is awake alert oriented in time place and person. Has normal mood and affect. Is neatly dressed. Has normal gait and station. Pupils are equal and react to light normally. Eyes move normally. Mucous membranes are moist. The patient has no trouble with speech. . Normal sensation. No thenar or intrinsic atrophy. Normal strength. Normal circulation. No sign of infection. Wound looks good and is healing. Sutures were removed today. Full range of motion of the fingers and no triggering of the fingers. Mental Status Includes: Mental Status from this encounter Description No anxiety Functional Status Includes: Functional Status from this encounter No Functional Status Recorded Physical Exam Includes: Physical Exam from this encounter Allergies Includes: Active Allergies Substance Type Reaction Onset Date Resolved Date Statu s Tetracycline HCl Allergy 10/20/2018 Ac tive Last Documented On 2 10:28AM ; [facility], [facility] Propoxyphene Allergy 04/13/2022 Active Last Documented On 2 10:28AM ; [facility] Doxycycline Hyclate Allergy 04/13/2022 Active Last Documented On 2 10:28AM ; [facility] Darvon Allergy 10/20/2018 Active Last Documented On 2 10:28AM ; [facility], [facility] Encounters Encounter Provider Location Date Check-In Time Check- Out Time Diagnosis Post Op Billie King MD [facility] 2 9:45AM 10:55AM Insurance Includes: Active Insurance Policies Plan Name Member ID Group # Subscriber Relationship Effect scot Dates 1 - Medicare Part B [facility] [id number] Nuzhat Bae Self 08/08/2007 - Unknown 2 - [employer] [id number] Nuzhat Bae Self 11/08/2020 - Unknown Clinical Notes Includes: Clinical Notes from this encounter No Clinical Notes Recorded
--- OUTSIDE RECORDS SUMMARY | 2025-08-18 00:29 | XMS_ITS | Clinical Summary ---
Author Organization [facility] Address [address] [place] [address] Phone Care Team Providers Care Pocket Assembler Name Role Phone Caio RIVERA, Hernando Young Unavailable [phone] FE RIVERA, CELI Bennett Primary Care Provider [phone] Reason for Visit and Chief Complaint The Chief Complaint is: RRF pain Problems Includes: Problems addressed during this encounter and other active Problems Current Visit Onset Date Resolved Date Provider Conditio n Status Lower Back Pain 08/19/2018 Hernando Kearney MD Act scot Last Documented On 8 9:16AM ; [facility], [facility] Past Visits Onset Date Resolved Date Provider Condition Status Soft Tissue Pain Hand 04/02/2021 Billie fierro MD Active Last Documented On 1 8:13AM ; [facility], [facility] Plan of Treatment Patient and I discussed the course of treatment for trigger finger including another injection versus surgery. Patient is ready for surgery at this time. We will schedule her for RRF TFR under [facility]. I have explained the risks, benefits, and alternatives to surgery. I have answered the patient's questions in detail. - Last Documented On 04/14/2022 2:54PM ; [facility], [facility] Assessments Includes: Assessments from this encounter Findings RRF trigger finger - Last Documented On 04/14/2022 2:54PM ; [facility], [facility] Medical Equipment - Implanted Devices Includes: Current Devices No Medical Equipment Recorded Medications Includes: Medications discussed during this encounter and other current Medications Discontinued / Stopped on this date on 07/27/2016 Synthroid 75 MCG Tablet Provider: Diagnosis: Last Documented On 2 9:43AM By Kimberly Sargent ; [facility], [facility] Aspirin 81 MG Tablet, chewable Provider: Diagnosis: Last Documented On 2 9:42AM By Kimberly Sargent ; [facility] Clopidogrel Bisulfate 300 MG Tablet Provi kat: Diagnosis: Last Documented On 2 9:43AM By Kimberly Sargent ; [facility], [facility] Isosorbide Mononitrate ER 30 MG Tablet, extended-release 24 hour Provider: Diagnosis: Last Documented On 2 9:43AM By Kimberly Sargent ; [facility], [facility] Atorvastatin Calcium 80 MG Tablet Provide r: Diagnosis: Last Documented On 2 9:42AM By Kimberly Sargent ; [facility], [facility] Combivent Respimat 20-100 MCG/ACT Aerosol, solution Provider: Diagnosis: Last Documented On 2 9:43AM By Kimberly Sargent ; [facility] Citracal Plus Tablet Provider: Diagnosis: Last Documented On 2 9:43AM By Kimberly Sargent ; [facility] CVS Iron 325 (65 Fe) MG Tablet Provider: Diagnosis: Last Documented On 2 9:43AM By Kimberly Sargent ; [facility] Forteo 600 mcg/2.4ml Injection (not specified) Provider: Diagnosis: Last Documented On 2 9:43AM By Kimberly Sargent ; [facility], [facility] Carvedilol 3.125 MG Tablet Provider: Diagnosis: Last Documented On 2 9:42AM By Kimberly Sargent ; [facility] Asmanex 120 Metered Doses 22 0 MCG/INH Aerosol Powder Breath Activated Provider: Diagnosis: Last Documented On 2 9:42AM By Kimberly Sargent ; [facility] Current Medications (continue as prescribed) Flovent Diskus 50 MCG/BLIST Inhalation Aerosol Powder Breath Activated 04/13/2022 Provider: Diagnosis: Last Documented On 2 11:15AM By Kimberly Shaffer ; [facility], [facility] Adult Aspirin EC Low Strengt h 81 MG Oral Tablet Delayed Release 04/13/2022 Provider: Diagnosis: Last Documented On 2 11:15AM By Kimberly Shaffer ; [facility] Stiolto Respimat 2.5-2.5 MCG/ACT Inhalation Aero rojelio Solution 02/17/2022 Provider: Diagnosis: Last Documented On 2 9:44AM By Kimberly Sargent ; [facility] Vitamin D (Ergocalciferol) 1 .25 MG (33571 UT) Oral Capsule 02/11/2022 Provider: SARITHA MCKOEN MD Diagnosis: Last Documented On 2 9:44AM By Kimberly Sargent ; [facility] Vitamin D (Ergocalciferol) 1 .25 MG (07540 UT) Oral Capsule 02/11/2022 Provider: SARITHA MCKEON MD Diagnosis: Last Documented On 2 9:44AM By Kimberly Sagrent ; [facility] Isosorbide Mononitrate ER 30 MG Oral Tablet Extended Release 24 Hour 02/04/2022 Provider: BILLIE CHRISTENSEN MD Diagnosis: Last Documented On 2 9:44AM By Kimberly Sargent ; [facility] Rosuvastatin Calcium 40 MG Oral Tablet 02/04/2022 Pr ovider: BILLIE JOHNSON MD Diagnosis: Last Documented On 2 9:44AM By Kimberly Sargent ; [facility] Synthroid 75 MCG Oral Tablet 02/03/2022 Provider: Diagnosis: Last Documented On 2 9:44AM By Kimberly Sargent ; [facility] Past Medications on file Ibuprofen 400 MG Oral Tablet 06/08/2022 - 06/11/2022 Mary Jo aleman: Billie King MD Diagnosis: Take 1 tablet every 8 hrs prn pain Last Documented On 2 5:02PM By Minerva Blood ; [facility] Medications Administered Includes: Administered Medications from this encounter No Administered Medications Recorded Vital Signs Includes: Vital Signs from this encounter Vital Name 04/13/2022 09:45A Blood Pressure Sitting (mmHg) 108/60 Pulse Rate-Sitting (bpm) 64 Height (in) 65 Weight (lb) 149.2 Body Mass Index (kg/m2) 24.8 Body Surface Area (m2) 1.7 Note: SNM Last Documented: On 04/13/2022 9:49AM ; [facility], [facility] Results Includes: Results discussed during this encounter No Results Recorded For Specified Dates History of Present Illness Includes: History of Present Illness from this encounter HPI Nuzhat Bae is a 81 year old female. - Symptoms locking, popping. - Allergy list reviewed - Problem list reviewed - Medication reconciliation performed - Medication list reviewed with patient - Previous history of new onset pain 2 years - Sharp pain Symptoms - Pain is occasional (25% of the time) - Patient pain level from 1-10: 4 - Yes, previous treatment. - History of Injections Patient is here today for follow up for her RRF trigger finger. She states she is ready to proceed with further treatment as her symptoms have returned since her previous injection. Social History Description Last Updated No recent change in diet 04/13/2022 Last Documented On 2 2:54PM ; [facility] Not a current smoker. 04/13/2022 Last Documented On 2 2:54PM ; [facility] Caffeine use 04/13/2022 Last Documented On 2 2:54PM ; [facility] Exercising regularly 04/13/2022 Last Documented On 2 2:54PM ; [facility] No recent change in diet 04/13/2022 Last Documented On 2 2:54PM ; [facility] No tobacco use 04/13/2022 Last Documented On 2 2:54PM ; [facility] Non-smoker 04/13/2022 Last Documented On 2 2:54PM ; [facility] Not a current smoker 04/13/2022 Last Documented On 2 2:54PM ; [facility] Not using alcohol 04/13/2022 Last Documented On 2 2:54PM ; [facility] Not using drugs 04/13/2022 Last Documented On 2 2:54PM ; [facility] Smoking status : Never smoker 04/13/2022 Last Documented On 2 2:54PM ; [facility] Procedures and Surgical History Includes: Procedures from this encounter Procedures Code Diagnosis Performing Provider Service L ocation Service Date history of orthopedic options: physical therapy Last Documented On 2 9:43AM ; [facility] use of tobacco assessment performed 1000F Last Documented On 2 9:43AM ; [facility] patient screened for future fall risk 3288F Last Documented On 2 11:48AM ; [facility] Pt received screening for fall risk G8270 Last Documented On 2 9:43AM ; [facility] Clinical summary provided to patient Last Documented On 2 9:43AM ; [facility] an X-ray was performed 70848 Last Documented On 2 11:08AM ; [facility] Surgical History Last Updated History of heart surgery 3 stents 04/23 0 04/13/2022 Last Documented On 2 2:54PM ; [facility] Medical History Includes: Medical History addressed during this encounter Description Last Updated chronic bronchitis 04/13/2022 Last Documented On 2 2:54PM ; [facility] History of asthma 04/13/2022 Last Documented On 2 2:54PM ; [facility] History of Heartburn / Acid Reflux 04/13 Last Documented On 2 2:54PM ; [facility] History of History of Heart Attack / Str zak 04/13/2022 Last Documented On 2 2:54PM ; [facility] History of Thyroid Disease 04/13/2022 Last Documented On 2 2:54PM ; [facility] Past Surgical History: stent placement 0 04/13/2022 Last Documented On 2 2:54PM ; [facility] No recent immunization for flu 2 Last Documented On 2 2:54PM ; [facility] No recent immunization for pneumococcal pneumonia 04/13/2022 Last Documented On 2 2:54PM ; [facility] Past medical history non-con tributory: ~Hyperlipidemia ~Acid Reflux ~Graves disease ~COPD 04/13/2022 Last Documented On 2 2:54PM ; [facility] A previous fracture Right elbow, right m iddle finger 04/13/2022 Last Documented On 2 2:54PM ; [facility] History of acute myocardial infarction H eart attack 04/13/2022 Last Documented On 2 2:54PM ; [facility] History of osteoporosis 04/13/2022 Last Documented On 2 2:54PM ; [facility] Thyroid disease hyper 04/13/2022 Last Documented On 2 2:54PM ; [facility] Family History Includes: Family History addressed during [...] No complaint of seasonal allergic reaction. reviewed 04/13/22 The patient is awake alert oriented in time place and person. Has normal mood and affect. Is neatly dressed. Has normal gait and station. Pupils are equal and react to light normally. Eyes move normally. Mucous membranes are moist. The patient has no trouble with speech. Normal circulation. Normal sensation. There is tenderness over the RRF A1 michael with triggering. There is no tenderness over the RSF A1 michael but she states it catches occasionally. She denies numbness and tingling. Mental Status Includes: Mental Status from this encounter Description No anxiety Functional Status Includes: Functional Status from this encounter No Functional Status Recorded Physical Exam Includes: Physical Exam from this encounter Allergies Includes: Active Allergies Substance Type Reaction Onset Date Resolved Date Statu s Tetracycline HCl Allergy 10/20/2018 Ac tive Last Documented On 2 10:28AM ; [facility] Propoxyphene Allergy 04/13/2022 Active Last Documented On 2 10:28AM ; [facility] Doxycycline Hyclate Allergy 04/13/2022 Active Last Documented On 2 10:28AM ; [facility] Darvon Allergy 10/20/2018 Active Last Documented On 2 10:28AM ; [facility] Encounters Encounter Provider Location Date Check-In Time Check- Out Time Diagnosis Follow Up Billie King MD [facility] 2 9:15AM 10:08AM Insurance Includes: Active Insurance Policies Plan Name Member ID Group # Subscriber Relationship Effect scot Dates 1 - Medicare Part B [facility] [id number] Nuzhat Bae Self 08/08/2007 - Unknown 2 - MHBP [id number] Nuzhat Bae Self 11/08/2020 - Unknown Clinical Notes Includes: Clinical Notes from this encounter No Clinical Notes Recorded
--- OUTSIDE RECORDS SUMMARY | 2025-08-18 00:29 | XMS_ITS | Referral Summary ---
Author Organization [employer] ([place], [place], [place], [place]) Address [address] [place] [address] Care Team Providers Care Specimen Collector Name Role Phone Vicente Loyd MD Primary Care Provider [phone] Social History Tobacco Use Types Packs/Day Years [...] Date Les rded Speak language other than [place] Islander at home Not on file 11/19/2023 Want [...] therapy. RISK FACTORS: Estrogen deficiency. COMPARISON STUDY: [facility] FINDINGS: Bone densitometry was performed using a Loop unit. Sites measured included the spine and [...] therapy. RISK FACTORS: Estrogen deficiency. COMPARISON STUDY: [facility] FINDINGS: Bone densitometry was performed using a Loop unit. Sites measured included the spine and [...] examination in 2 years. Jennifer German MD [facility] DXA ORDERABLES Final Result from Last 3 Months or Most Recently Relevant to Health Maintenance Insurance MEDICARE PART A B [employer] Care Teams Specimen Collector Relationship Specialty Start Date End Date Vicente Loyd MD [address] [place] [address] PCP - General General Internal Medicine 06/18/23
--- OUTSIDE RECORDS SUMMARY | 2025-08-18 00:29 | XMS_ITS | Clinical Summary ---
Author Organization [facility] Address [address] [place] [address] Phone Care Team Providers Care Map Drafter Name Role Phone Caio RIVERA, Hernando Young Unavailable [phone] FE RIVERA, CELI Bennett Primary Care Provider [phone] Reason for Visit and Chief Complaint [facility] Problems Includes: Problems addressed during this encounter and other active Problems All Visits Onset Date Resolved Date Provider Condition S tatus Soft Tissue Pain Hand 04/02/2021 Zeb fierro MD Active Last Documented On 1 8:13AM ; [facility] Lower Back Pain 08/19/2018 Hernando Kearney MD Act scot Last Documented On 8 9:16AM ; [facility] Plan of Treatment No Plan of Treatment Recorded Assessments Includes: Assessments from this encounter No Assessments Recorded Medical Equipment - Implanted Devices Includes: Current Devices No Medical Equipment Recorded Medications Includes: Medications discussed during this encounter and other current Medications Current Medications (continue as prescribed) Flovent Diskus 50 MCG/BLIST Inhalation Aerosol Powder Breath Activated 04/13/2022 Provider: Diagnosis: Last Documented On 2 11:15AM By Kimberly Julian [facility] Adult Aspirin EC Low Strengt h 81 MG Oral Tablet Delayed Release 04/13/2022 Provider: Diagnosis: Last Documented On 2 11:15AM By Kimberly Julian [facility] Stiolto Respimat 2.5-2.5 MCG/ACT Inhalation Aero rojelio Solution 02/17/2022 Provider: Diagnosis: Last Documented On 2 9:44AM By Kimberly Julian [facility] Vitamin D (Ergocalciferol) 1 .25 MG (50715 UT) Oral Capsule 02/11/2022 Provider: SARITHA MCKEON MD Diagnosis: Last Documented On 2 9:44AM By Kimberly Sargent ; [facility] Vitamin D (Ergocalciferol) 1 .25 MG (94364 UT) Oral Capsule 02/11/2022 Provider: SARITHA MCKEON MD Diagnosis: Last Documented On 2 9:44AM By Kimberly Sargent ; [facility] Isosorbide Mononitrate ER 30 MG Oral Tablet Extended Release 24 Hour 02/04/2022 Provider: ZEB CHRISTENSEN MD Diagnosis: Last Documented On 2 9:44AM By Kimberly Sargent ; [facility] Rosuvastatin Calcium 40 MG Oral Tablet 02/04/2022 Pr ovider: ZEB JOHNSON MD Diagnosis: Last Documented On 2 9:44AM By Kimberly Sargent ; [facility] Synthroid 75 MCG Oral Tablet 02/03/2022 Provider: Diagnosis: Last Documented On 2 9:44AM By Kimberly Sargent ; [facility] Medications Administered Includes: Administered Medications from this encounter No Administered Medications Recorded Results Includes: Results discussed during this encounter No Results Recorded For Specified Dates History of Present Illness Includes: History of Present Illness from this encounter No History of Present Illness Recorded Social History No Social History Recorded - Smoking Status Unknown Medical History Includes: Medical History addressed during this encounter No Medical History Recorded Family History Includes: Family History addressed during this encounter No Family History Recorded Review of Systems Includes: Review of Systems from this encounter No Review of Systems Recorded Mental Status Includes: Mental Status from this encounter No Mental Status Recorded Functional Status Includes: Functional Status from this encounter No Functional Status Recorded Physical Exam Includes: Physical Exam from this encounter No Physical Exam Recorded Allergies Includes: Active Allergies Substance Type Reaction Onset Date Resolved Date Statu s Tetracycline HCl Allergy 10/20/2018 Ac tive Last Documented On 2 10:28AM ; [facility] Propoxyphene Allergy 04/13/2022 Active Last Documented On 2 10:28AM ; [facility] Doxycycline Hyclate Allergy 04/13/2022 Active Last Documented On 2 10:28AM ; [facility] Darvon Allergy 10/20/2018 Active Last Documented On 2 10:28AM ; [facility] Encounters Encounter Provider Location Date Check-In Time Check-Out Time Diagnosis [facility] Zeb King MD Surgery 06/09/2022 8:24AM 11:59PM Insurance Includes: Active Insurance Policies Plan Name Member ID Group # Subscriber Relationship Effect scot Dates 1 - Medicare Part B [facility] [id number] Nuzhat Bae Self 08/08/2007 - Unknown 2 - MHBP [id number] Nuzhat Bae Self 11/08/2020 - Unknown Clinical Notes Includes: Clinical Notes from this encounter No Clinical Notes Recorded
--- OUTSIDE RECORDS SUMMARY | 2025-08-18 00:29 | XMS_ITS | Encounter Summary ---
Author Organization [employer] ([place], [place], [place], [place]) Address [address] [place] [address] Care Team Providers Care Work Measurement Engineer Name Role Phone Vicente Loyd MD Primary Care Provider [phone] Reason for Referral * DXA (Routine) - New Request Specialty Diagnoses / Procedures Referred By Contac t Referred To Contact Diagnoses Age-related osteoporosis without current pathological fracture Procedures DXA bone [place] [address] [place], [place] [id number] Phone: tel: fax: Referral ID Status Reason Start Date Expiration Date V isits Requested Visits Authorized [id number] New Request 08/22/2024 08/22/2025 1 1 Encounter Details Date Type Department Care Team (Late st Contact Info) Description 08/22/[address] [facility] Central Scheduling [address] [place] [id number] Jennifer German MD [facility] [place] [address] Age-related osteoporosis without current pathological fracture (Primary [...] Date Les rded Speak language other than [place] at home Not on file 11/19/2023 Want [...] Primary documented in this encounter Care Teams Work Measurement Engineer Relationship Specialty Start Date End Date Vicente Loyd MD [address] [place] [phone] PCP - General General Internal Medicine 06/18/23 documented as of this encounter
--- OUTSIDE RECORDS SUMMARY | 2025-08-18 00:29 | XMS_ITS | Data Portability ---
Author Organization RE [facility] CLOS[facility] Address [address] [place] [address] Assessment No assessment recorded. Plan of Treatment Reminders Order Date Submit Date Provider Last Modified By Organization Details Last Modified Time Details Appointments BONE DENSITY 2024 11:40A M Bone_dens ity Not available Not available Not available RECHECK 2024 01:00P M ARIEL BLUE MD Not available Not available Not available Lab BMP, serum or plasma 2023 024 [email or web address] [facility], [address] [place] [address], [phone], 09/19/2024 09:42:09 PTH (parathyr oid hormone), intact + calcium, serum or plasma 2023 024 [email or web address] [facility], [address] [place] [address], [address], 09/19/2024 09:42:10 T4, free, serum 2023 024 [facility], [address] [place] [address], [address], 09/21/2024 08:33:22 TSH, serum or plasma 2023 024 [email or web address] [facility], [address] [place] [address], [phone], 09/21/2024 08:33:23 BMP, serum or plasma 2022 023 [facility], [address] [place] [address], [address], 08/17/2023 12:11:42 PTH (parathyr oid hormone), intact + calcium, serum or plasma 2022 023 [facility], [address] [place] [address], [address], 08/17/2023 12:37:31 CBC w/ auto diff 2022 023 [facility], [address] [place] [address], [address], 08/17/2023 11:42:12 vitamin B12 + folate, serum or blood 2022 023 [facility], [address] [place] [address], [address], 08/17/2023 12:37:29 iron + total iron-bind ing capacity (TIBC), serum 2022 023 [facility], [address] [place] [address], [address], 08/17/2023 12:11:40 T4, free, serum 2022 023 [facility], [address] [place] [address], [address], 08/17/2023 12:13:22 TSH, serum or plasma 2022 023 [facility], [address] [place] [address], [address], 08/17/2023 12:13:21 vitamin D, 25-hydrox y, total, serum 2022 023 [facility], [address] [place] [address], [address], 02/09/2023 12:36:18 T4, free, serum 2022 023 [facility], [address] [place], [address], 02/09/2023 12:29:04 TSH, serum or plasma 2022 023 [facility], [address] [place], [address], 02/09/2023 12:29:05 Referral None recorded. Procedures None recorded. Surgeries None recorded. Imaging DEXA - 1 year follow-up osteoporo sis on Prolia therapy 2023 024 [email or web address] [facility] Scheduling, [address], [place], [address], 11/02/2024 09:47:44 DEXA [email or web address] [place] [address] Scheduling, [address], [place], [address], 08/31/2023 07:26:20 Medication Orders Prolia 60 mg/mL subcutane ous syringe 2024 025 [email or web address] Not available 02/27/2025 10:41:52 Prolia 60 mg/mL subcutane ous syringe [id number] [address] [place], [address], 08/22/2024 10:31:59 Prolia 60 mg/mL subcutane ous syringe 2023 024 [email or web address] Not available 02/22/2024 09:52:19 Prolia 60 mg/mL subcutane ous syringe 2022 023 [email or web address] [id number], [address] [place], [address], 08/17/2023 12:13:48 Prolia 60 mg/mL subcutane ous syringe 2022 023 [email or web address] Not available 02/09/2023 11:22:34 Synthroid 75 mcg tablet 2022 023 [email or web address] [id number], [address] [place], [address], 02/09/2023 10:53:19 Patient TargetsNo targets recorded. Patient InstructionsNo instructions recorded. Reason for Referral None Reported. Results Created Date Observation Date Name Description Value Unit Range Abnormal Flag Note LastModifiedBy Organization Detail LastModifiedTime 02/10/2002/09/2023 T4,FR EE T4,free 1.70 NG/dL 0.93-1 .70 normal Not Available [facility] [address] [place] [address], [phone], 02/09/2023 12:29:04 02/10/20 23 02/09/2023 TSH TSH 0.837 uIU/m L 0.270- 4.200 normal Not Available [facility] [address] [place] [address], [address], 02/09/2023 12:29:05 02/10/20 23 02/09/2023 VITAM IN D 25-OH vitamin D 25-oh, total 61 NG/mL >=30 NG/mL normal Not Available [facility] [address] [place] [address], [address], 02/09/2023 12:36:18 08/17/2008/17/2023 COMPL ETE BLOOD COUNT white blood cells 8.5 10*3/ uL 3.8-10 .8 normal Not Available [facility] [address] [place] [address], [address], 08/17/2023 11:42:12 08/17/20 23 08/17/2023 COMPL ETE BLOOD COUNT red blood cells 4.56 10*6/ uL 3.80-5 .20 normal Not Available [facility] [address] [place] [address], [address], 08/17/2023 11:42:12 08/17/20 23 08/17/2023 COMPL ETE BLOOD COUNT hemoglobin 13.7 g/dL 12.0-1 6.0 normal Not Available [facility] [address] [place] [address], [address], 08/17/2023 11:42:12 08/17/2008/17/2023 COMPL ETE BLOOD COUNT hematocrit 41.3 % 35.0-4 7.0 normal Not Available [facility] [address] [place] [address], [address], 08/17/2023 11:42:12 08/17/2008/17/2023 COMPL ETE BLOOD COUNT MCV 91 fL 80-100 normal Not Available [facility] [address] [place] [address], [address], 08/17/2023 11:42:12 08/17/2008/17/2023 COMPL ETE BLOOD COUNT MCH 30 pg 26-35 normal Not Available [facility] [address] [place] [address], [address], 08/17/2023 11:42:12 08/17/2008/17/2023 COMPL ETE BLOOD COUNT MCHC 33 g/dL 32-36 normal Not Available [facility] [address] [place] [address], [address], 08/17/2023 11:42:12 08/17/2008/17/2023 COMPL ETE BLOOD COUNT RDW 16.0 % 11.0-1 5.0 high Not Available [facility] [address] [place] [address], [address], 08/17/2023 11:42:12 08/17/2008/17/2023 COMPL ETE BLOOD COUNT MPV 7.9 fL 6.2-10 .5 normal Not Available [facility] [address] [place] [address], [address], 08/17/2023 11:42:12 08/17/2008/17/2023 COMPL ETE BLOOD COUNT platelet count 213 10*3/ uL 150-40 0 normal PLEAS E NOTE: NEW YEIMI L RANGE Not Available [facility] [address] [place] [address], [address], 08/17/2023 11:42:12 08/17/20 23 08/17/2023 COMPL ETE BLOOD COUNT neutrophil,a bsolute 5.4 10*3/ uL 1.6-8. 4 normal Not Available [facility] [address] [place] [address], [address], 08/17/2023 11:42:12 08/17/2008/17/2023 COMPL ETE BLOOD COUNT lymphocyte,a bsolute 2.0 10*3/ uL 0.4-5. 1 normal Not Available [facility] [address] [place] [address], [address], 08/17/2023 11:42:12 08/17/2008/17/2023 COMPL ETE BLOOD COUNT monocyte,abs olute 0.9 10*3/ uL 0.0-1. 2 normal Not Available [facility] [address] [place] [address], [address], 08/17/2023 11:42:12 08/17/20 23 08/17/2023 COMPL ETE BLOOD COUNT eosinophil,a bsolute 0.2 10*3/ uL 0.0-0. 8 normal Not Available [facility] [address] [place] [address], [address], 08/17/2023 11:42:12 08/17/20 23 08/17/2023 COMPL ETE BLOOD COUNT basophil,abs olute 0.1 10*3/ uL 0.0-0. 3 normal Not Available [facility] [address] [place] [address], [address], 08/17/2023 11:42:12 08/17/20 23 08/17/2023 COMPL ETE BLOOD COUNT % neutrophils 62.9 % 42.0-7 8.0 normal Not Available [facility] [address] [place] [address], [address], 08/17/2023 11:42:12 08/17/20 23 08/17/2023 COMPL ETE BLOOD COUNT % lymphocytes 23.5 % 11.0-4 7.0 normal Not Available [facility] [address] [place] [address], [address], 08/17/2023 11:42:12 08/17/20 23 08/17/2023 COMPL ETE BLOOD COUNT % monocytes 10.3 % 0.0-11 .0 normal Not Available [facility] [address] [place] [address], [address], 08/17/2023 11:42:12 08/17/20 23 08/17/2023 COMPL ETE BLOOD COUNT % eosinophils 2.5 % 0.0-7. 0 normal Not Available [facility] [address] [place] [address], [address], 08/17/2023 11:42:12 08/17/20 23 08/17/2023 COMPL ETE BLOOD COUNT % basophils 0.8 % 0.0-3. 0 normal Not Available [facility] [address] [place] [address], [address], 08/17/2023 11:42:12 08/17/20 23 08/17/2023 COMPL ETE BLOOD COUNT nucleated red cells 0.1 % 0.0-0. 9 normal Not Available [facility] [address] [place] [address], [address], 08/17/2023 11:42:12 08/17/2008/17/2023 COMPL ETE BLOOD COUNT nucleated RBCs, absolute 0.01 10*3/ uL not estab. normal Not Available [facility] [address] [place] [address], [address], 08/17/2023 11:42:12 10/08/27 2308/17/2023 IRON PANEL -TOTA L AND TIBC iron 80 ug/dL 37-145 normal Not Available [facility] [address] [place] [address], [address], 08/17/2023 12:11:40 08/17/2008/17/2023 IRON PANEL -TOTA L AND TIBC total iron binding cap. 265 ug/dL _(brenda c) 250-45 0 normal Not Available [facility] [address] [place] [address], [address], 08/17/2023 12:11:40 08/17/2008/17/2023 IRON PANEL -TOTA L AND TIBC unsat.iron binding cap. 185 ug/dL 112-34 7 normal Not Available [facility] [address] [place] [address], [address], 08/17/2023 12:11:40 08/17/2008/17/2023 IRON PANEL -TOTA L AND TIBC % saturation 30 %_(ca lc) 15-50 normal Not Available [facility] [address] [place] [address], [address], 08/17/2023 12:11:40 08/17/2008/17/2023 BASIC METAB OLIC PANEL glucose 90 mg/dL 74-100 normal Not Available [facility] [address] [place] [address], [address], 08/17/2023 12:11:42 08/17/2008/17/2023 BASIC METAB OLIC PANEL blood urea nitrogen 16 mg/dL 6-20 normal Not Available [facility] [address] [place] [address], [address], 08/17/2023 12:11:42 08/17/2008/17/2023 BASIC METAB OLIC PANEL creatinine 0.94 mg/dL 0.50-0 .95 normal Not Available [facility] [address] [place] [address], [address], 08/17/2023 12:11:42 08/17/20 23 08/17/2023 BASIC METAB OLIC PANEL BUN/creatini ne ratio 17 (calc ) 10-20 normal Not Available [facility] [address] [place] [address], [address], 08/17/2023 12:11:42 08/17/20 23 08/17/2023 BASIC METAB OLIC PANEL sodium 140 mmol/ L 136-14 5 normal Not Available [facility] [address] [place] [address], [address], 08/17/2023 12:11:42 08/17/2008/17/2023 BASIC METAB OLIC PANEL potassium 4.2 mmol/ L 3.4-5. 0 normal Not Available [facility] [address] [place] [address], [address], 08/17/2023 12:11:42 08/17/2008/17/2023 BASIC METAB OLIC PANEL chloride 103 mmol/ L 98-107 normal Not Available [facility] [address] [place] [address], [address], 08/17/2023 12:11:42 08/17/2008/17/2023 BASIC METAB OLIC PANEL carbon dioxide 26 mmol/ L 22-31 normal Not Available [facility] [address] [place] [address], [address], 08/17/2023 12:11:42 08/17/2008/17/2023 BASIC METAB OLIC PANEL anion gap 11 (calc ) 7-25 normal Not Available [facility] [address] [place] [address], [address], 08/17/2023 12:11:42 08/17/2008/17/2023 BASIC METAB OLIC PANEL calcium 9.2 mg/dL 8.6-10 .2 normal Not Available [facility] [address] [place] [address], [address], 08/17/2023 12:11:42 08/17/20 23 08/17/2023 BASIC METAB OLIC PANEL GFR 61 >= 60 normal NOT E New calcu latio n for GFR (CKD- EPI 2020) is formu lated witho ut race adjus tment facto rs at the recom menda tion of the Natgaurav chiang Kid[employer]ha y Found ation and Carriesamuel Zapien ty of Nephr ology . This calcu latio n has not been valid ated in pregn ant women . For pedia tric patie nts refer to https ://jacqueline w.sydnie german.o rg/pr ofess ional s/KDO QI/gf r_cal culat orPed Not Available [facility] [address] [place] [address], [address], 08/17/2023 12:11:42 08/17/20 23 08/17/2023 TSH TSH 3.630 u[IU] /mL 0.270- 4.200 normal Not Available [facility] [address] [place] [address], [address], 08/17/2023 12:13:21 08/17/2008/17/2023 T4,FR EE T4,free 1.54 NG/dL 0.93-1 .70 normal Not Available [facility] [address] [place] [address], [address], 08/17/2023 12:13:22 08/17/20 23 08/17/2023 B12/F OLIC ACID PANEL folic acid >20.0 NG/mL 4.6-34 .8 normal Not Available [facility] [address] [place], [address], 08/17/2023 12:37:29 08/17/20 23 08/17/2023 B12/F OLIC ACID PANEL vitamin B12 433 pg/mL 232-12 45 normal Not Available [facility] [address] [place] [address], [address], 08/17/2023 12:37:29 08/17/20 23 08/17/2023 PTH, INTAC T WITH CA PTH, intact 50.0 pg/mL 15.0-6 5.0 normal INTER PRETI VE GUIDE ===== ===== ===== ===== ===== ===== ===== ===== ===== ===== ===== === PTH CALCI UM CONDI TION ===== ===== ===== ===== ===== ===== ===== ===== ===== ===== ===== = Yeimi l Yeimi l Yeimi l Parat hyroi d _ Low or Low Hypop layla yroid ism Low Yeimi l _ Yeimi l or High Prima ry Hyper parat hyroi dism High __ High Yeimi l or Secon liberty Hyper parat hyroi dism Low __ High High Terti humphrey Hyper parat hyroi dism __ Low or High Non-P layla yroid Hyper calce husam Low Yeimi l ===== ===== ===== ===== ===== ===== ===== ===== ===== ===== ===== ==== Not Available [facility] [address] [place] [address], [address], 08/17/2023 12:37:39 08/17/20 23 08/17/2023 PTH, INTAC T WITH CA calcium 9.1 mg/dL 8.6-10 .2 normal Not Available [facility] [address] [place] [address], [address], 08/17/2023 12:37:39 08/22/20 24 08/22/2024 BASIC METAB OLIC PANEL glucose 90 mg/dL 74-100 normal Not Available [facility] [address] [place] [address], [address], 08/22/2024 11:28:21 08/22/20 24 08/22/2024 BASIC METAB OLIC PANEL blood urea nitrogen 16 mg/dL 6-20 normal Not Available [facility] [address] [place] [address], [address], 08/22/2024 11:28:21 08/22/20 24 08/22/2024 BASIC METAB OLIC PANEL creatinine 0.87 mg/dL 0.50-0 .95 normal Not Available [facility] [address] [place] [address], [address], 08/22/2024 11:28:21 08/22/20 24 08/22/2024 BASIC METAB OLIC PANEL BUN/creatini ne ratio 18 (calc ) 10-20 normal Not Available [facility] [address] [place] [address], [address], 08/22/2024 11:28:21 08/22/20 08/22/2024 BASIC METAB OLIC PANEL sodium 142 mmol/ L 136-14 5 normal Not Available [facility] [address] [place] [address], [address], 08/22/2024 11:28:21 08/22/20 24 08/22/2024 BASIC METAB OLIC PANEL potassium 4.0 mmol/ L 3.4-5. 0 normal Not Available [facility] [address] [place] [address], [address], 08/22/2024 11:28:21 08/22/2008/22/2024 BASIC METAB OLIC PANEL chloride 107 mmol/ L 98-107 normal Not Available [facility] [address] [place] [address], [address], 08/22/2024 11:28:21 08/22/2008/22/2024 BASIC METAB OLIC PANEL carbon dioxide 24 mmol/ L 22-31 normal Not Available [facility] [address] [place] [address], [address], 08/22/2024 11:28:21 08/22/2008/22/2024 BASIC METAB OLIC PANEL anion gap 11 (calc ) 7-25 normal Not Available [facility] [address] [place] [address], [address], 08/22/2024 11:28:21 08/22/2008/22/2024 BASIC METAB OLIC PANEL calcium 8.8 mg/dL 8.6-10 .2 normal Not Available [facility] [address] [place] [address], [address], 08/22/2024 11:28:21 08/22/2008/22/2024 BASIC METAB OLIC PANEL GFR 66 >= 60 normal NOT E New calcu latio n for GFR (CKD- EPI 2020) is formu lated witho ut race adjus tment facto rs at the recom menda tion of the Natgaurav nal Kidne y Found ation and Ameri can Socie ty of Nephr ology . This calcu latio n has not been valid ated in pregn ant women . For [place] nts refer to https ://jacqueline german.vicki salinas/lupe sahu s/KDO QI/gf r_cal culat orPed Not Available [facility] [address] [place] [address], [address], 08/22/2024 11:28:21 08/22/20 24 08/22/2024 T4,FR EE T4,free 1.46 NG/dL 0.93-1 .70 normal Not Available [facility] [address] [place] [address], [address], 08/22/2024 11:35:19 08/22/20 24 08/22/2024 TSH TSH 5.650 u[IU] /mL 0.270- 4.200 high Not Available [facility] [address] [place], [address], 08/22/2024 11:35:21 08/22/20 24 08/22/2024 PTH, INTAC T WITH CA PTH, intact 110.0 pg/mL 15.0-6 5.0 high INTER PRETI VE GUIDE ===== ===== ===== ===== ===== ===== ===== ===== ===== ===== ===== === PTH CALCI UM CONDI TION ===== ===== ===== ===== ===== ===== ===== ===== ===== ===== ===== = Yeimi l Yeimi l Yeimi l Parat hyroi d _ Low or Low Hypop layla yroid ism Low Yeimi l _ Yeimi l or High Prima ry Hyper parat hyroi dism High __ High Yeimi l or Secon liberty Hyper parat hyroi dism Low __ High High Terti humphrey Hyper parat hyroi dism __ Low or High Non-P layla yroid Hyper calce husam Low Yeimi l ===== ===== ===== ===== ===== ===== ===== ===== ===== ===== ===== ==== Not Available [facility] [address] [place] [address], [address], 08/22/2024 11:46:21 08/22/20 24 08/22/2024 PTH, INTAC T WITH CA calcium 8.8 mg/dL 8.6-10 .2 normal Not Available [facility] [address] [place], [address], 08/22/2024 11:46:21 10/21/20 23 10/21/2023 DEXA No observ ation record ed. [email or web address] Not Available 2022 16:57:06 Result Notes None recorded. 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 Procedures Surgical History Date Name Laterality Status Provider Name and Address Organization Details Recorded Time 02/28/20 25 Prolia Injection completed Jackie Kong [facility] 02/27/2025 10:41:13 08/22/20 24 Prolia Injection completed Faye Francis [facility] 08/22/2024 10:27:07 02/22/20 24 Prolia Injection completed Erika Mouser [facility] 02/22/2024 09:50:02 08/17/20 23 Prolia Injection completed ARIEL BLUE MD [address] [place], [address], [facility] 08/17/2023 12:15:18 02/10/20 23 Prolia Injection completed Erika Mouser [facility] 02/09/2023 11:04:04 02/12/20 22 Prolia Injection completed Sophie Daigle [facility] 02/11/2022 09:36:07 08/08/20 21 Prolia Injection completed Erika Mouser [facility] 08/08/2021 10:32:17 02/01/20 21 Prolia Injection completed Erika Mouser [facility] 01/31/2021 13:01:40 06/27/20 20 Prolia Injection completed Moni Carrizales [facility] 06/27/2020 09:30:23 11/14/19 20 Prolia Injection completed Erika Mouser [facility] 11/14/2019 11:59:28 09/22/20 19 Pap Smear collection completed BOOKER STORM APRN [address] [place], [address], [facility] 09/22/2019 13:52:43 09/22/20 19 Date of Last Pap Smear completed Felecia Spicery Shelly [facility] 10/04/2019 11:46:12 10/28/20 18 Prolia Injection completed [facility] 10/28/2018 11:08:18 04/07/20 18 Prolia Injection completed [facility] 04/07/2018 10:32:56 03/31/20 16 Most Recent Bone Density completed [facility] 09/15/2019 11:45:17 12/15/19 14 Most Recent Mammogram completed [facility] 09/15/2019 11:45:22 09/15/20 12 Date of Last Colonoscopy completed [facility] 09/15/2019 11:44:27 Cardiac Surgery completed Erika Elaine [facility] 03/23/2017 10:06:32 Imaging Results None recorded. Procedure Notes None recorded. Medical Equipment None Reported. Allergies Allergen ID Allergen Name Allergen Category Reaction Reaction Severity Criticality Documentation Date Start Date Code Code System Note Provider Name and Address Organization Details Recorded Time [id number] propoxyph rico hydrochlo ride medicatio n Not available Not available Not available 10/01/20162009 67258 RxNorm Comme nt: Creat ed By: Arie jenkins Date: 010 10:10 :00 AM; Not Available [facility] 6 12:22:33 137298 propoxyph rico hydrochlo ride Not available other Not available Not available 10/02/20162008 05338 RxNorm React ion: OTHER ; Comme nt: vahe mustafaat ions; Creat ed By: Connor jarrett Date: 2008 8:10: 43 AM; Not Available [facility] 6 08:39:40 [id number] doxycycli ne Not available hives severe Not available 03/22/2018 3640 [facility] 09:59:13 Medications Name Sig Start Date Stop Date Status Note LastModified by Organization Details LastModified Time Caltrate- 600 Plus Vitamin D3 600 mg-200 unit tablet Two times a day active Instruct ions: w/ lunch & supper. for bones.;F requency : bid;Medi cation Descript ion: calcium and vitamin D combinat ion; Dosage:1 ; Route:or al; refills: 0; Quantity :otc tablet Not Available Not Available Not Available Plavix 75 mg tablet Take 1 tablet every day by oral route. 03/22 completed Not Available Not Available Not Available omeprazol e 40 mg capsule,d elayed release 03/23 completed Duration : 30 days;Ins truction s: TAKE 1 CAPSULE BY MOUTH EVERY DAY;Medi cation Descript ion: omeprazo le; Route:or al; refills: 10; Quantity :30 delayed release capsule Not Available Not Available Not Available Synthroid 88 mcg tablet TAKE 1 TABLET BY MOUTH EVERY DAY IN THE MORNING active Not Available Not Available No t Available Combivent 18 mcg-103 mcg/actua tion aerosol inhaler As needed 05/17 completed Instruct ions: 2 inhalati ons four times daily;Fr equency: prn;Medi cation Descript ion: albutero l-ipratr opium; Dosage:2 ; Route:in halation ; refills: 5; Quantity :1 aerosol Not Available Not Available Not Available Synthroid 75 mcg tablet TAKE 1 TABLET BY MOUTH EVERY DAY IN THE MORNING 2024 active 08/22/24 -08/15/25 Not Available Not Available Not Available Asprin Ec Low Dose 81 mg tablet,de layed release Take 1 tablet every day by oral route. active Not Available Not Available No t Available Asmanex Twisthale r 220 mcg/actua tion(30 doses) breath activated inhalr Two times a day 05/17 completed Frequenc y: bid;Medi cation Descript ion: mometaso ne furoate; Dosage:1 puff; Route:or al inhalati on; refills: 0; Quantity :1 dry powder inhalati on Not Available Not Available Not Available Isosorbid e Mononitra te ER 40 mg once daily active Not Available Not Available No t Available Crestor 40 mg daily active Not Available Not Available No t Available Forteo 20 mcg/dose (560 mcg/2.24 mL) subcutane ous pen injector Daily 03/23 completed Duration : 30 days;Ins truction s: 20 mcg daily as directed for bones, Quantity 1 pen;Freq uency: daily;Me dication Descript ion: teripara tide; Dosage:a s directed ; Route:monteiro bcutaneo us; refills: 11; Quantity :30 device Not Available Not Available Not Available Flovent Diskus 250 mcg/actua tion powder for inhalatio n Inhale 1 puff twice a day by inhalati on route. active Not Available Not Available No t Available Prolia 60 mg/mL subcutane ous syringe Inject 1 mL by subcutan eous route for 180 days. 2024 active B&B Not Available Not Available Not Avai lable Vitals Date Recorded Body height Body mass index (BMI) Body weight Heart rate Systolic And Diastolic Provider Name and Address Organization Details Last Updated DateTime 02/09/2023 160.02 cm 28.5 kg/m2 32614.37 g 65 /min 120/65 mm[Hg] [facility] 02/09/2023 10:34:35 Date Recorded Body height Body mass index (BMI) Body weight Heart rate Systolic And Diastolic Provider Name and Address Organization Details Last Updated DateTime 08/17/2023 160.02 cm 28.2 kg/m2 19357.19 g 64 /min 120/78 mm[Hg] [facility] 08/17/2023 10:50:08 Date Recorded Body height Body mass index (BMI) Body weight Heart rate Systolic And Diastolic Provider Name and Address Organization Details Last Updated DateTime 08/22/2024 160.02 cm 25.9 kg/m2 17419.49 g 70 /min 118/76 mm[Hg] [facility] 08/22/2024 09:57:23 Social History Question Answer Notes LastModified by Organizat ion Details LastModified Time Tobacco Smoking Status Never Smoker [facility] 09/22/2019 13:12:40 What Is Your Level Of Caffeine Consumption? Occasional Information not available 09/22/2019 Marital Status Informatio n not available 09/22/2019 Sex: Female Functional Status Question Answer Note LastModified by Organization D etails LastModified Time What is your level of alcohol consumption? None Information not available 09/22/2019 Mental Status None recorded. Family History Relationship Description Onset Age of this Age Resolved Age Notes LastModified by Organization Details LastModified Time Paternal Grandmother Malignant neoplasm of breast [email or web address] Not available 09/08 13:51:04 Medical History Condition Response Other Thyroid Problems Y Hypothyroidism Y Anemia Y Diabetes N Bleeding Disorder N Stroke N Liver Disease N Hypertension Y Osteoporosis Y Kidney Disease N Gynecological History Statement/Question Response If Post Menopausal, Age at Menopause 62 Date of Last Colonoscopy 09/15/2012 Most Recent Bone Density 03/31/2016 Sexually Active? 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 more than 2 years but intermitte ntly. Recently had a heart attack.Had n't tried any other medication s before. He stated that she is not interestin g in any of the parenteral therapies i.e. annually or every 6 month concern about accumulati on in her body.Histo ry of subjective reflux/Valery atzki ring.Might consider Evista or bisphospho nates as appropriat eCheck BMP/GFRChe ck 25-hydroxy vitamin D todayFollo w-up bone densityFur ther management to be determined as appropriat e i.e. [id number] ARIEL BLUE MD ENDOCRINO LOGY [address] [place] [address] 03/22/2018 09:52:01 03/22/2018 10:39:18 Postmenopausal osteoporosis 624558349 M81.0 N18.9 Has been on Forteo i.e. About 17 monthsLast office we had a discussion about sequential therapy after anabolic therapy and we sent her a letter with her bone density recommendi ng call our office back but she did not follow through. She was concerned about side effects related to bisphospho katherin therapy and raloxifene .History of subjective reflux/Valery atzki ring. According to national osteoporos is Foundation , indication s of anti-osteo porosis pharmacolo gic therapy include: A hip or vertebral [clinical symmetric] fracture T-score = -2.5 and the femoral neck or spine after appropriat e evaluation to exclude secondary causes Low bone mass [T-score between -1 and -2.5 at the femoral neck or spine] and that any of probabilit y of a hip fracture = 3% or a 10 year possibilit y of a major osteoporot ic fracture equals 20% based on [place]-adapted WHO of alogorithm ) Last bone density on 04/02/2017 showed lumbar scoliosis and degenerati ve changes and L3-L4 T score of -0.9 and bone density of 1.075 g/cm . Femoral neck bone density of 0.560 g/cm [compared to 0.588 g percent meter squared compared to prior bone density and T score of -2.6] Recommenda tions: 1. Start Prolia 60 mg subcutaneo us every 6 months Denosumab reduces the incidence of vertebral fractures by about 68 percent, hip fractures by about 40 percent and non-verteb ral fractures by about 20 percent over three years. I counselled patient about potential side effects related to Denosumab therapy include hypocalcem ia, increased the risk of serious skin infections (celluliti s)/skin rash, rarley ONJ and atypical femur fractures. If insurance doesn't approve prolia or she changes her mind we also discussed the alternativ e option of Evista therapy. 2. BMP/GFR, calcium and 25-hydroxy vitamin D 3. Falls prevention 4. 1 year follow-up visit with bone density while on therapy Hypothyroidism 02082884 E03.9 Appears a clinically euthyroid Check TSH today [id number] ARIEL BLUE MD ENDOCRINO [facility]Y SB [address] [place] [address] 04/07/2018 10:22:41 04/07/2018 12:22:33 Osteoporosis 92232343 M81.0 [id number] ARIEL BLUE MD [facility]CR[facility] [address] [place] [address] 10/28/2018 10:39:20 10/28/2018 15:30:52 Osteoporosis 23456074 M81.0 [id number] ARIEL BLUE MD END[facility]CRINO [facility] [address] [place] [address] 04/11/2019 12:50:35 04/12/2019 08:01:52 Postmenopausal osteoporosis 421642427 M81.0 N18.9 Previously on Forteo i.e. About 17 months According to national osteoporos is Foundation , indication s of anti-osteo porosis pharmacolo gic therapy include: A hip or vertebral [clinical symmetric] fracture T-score = -2.5 and the femoral neck or spine after appropriat e evaluation to exclude secondary causes Low bone mass [T-score between -1 and -2.5 at the femoral neck or spine] and that any of probabilit y of a hip fracture = 3% or a 10 year possibilit y of a major osteoporot ic fracture equals 20% based on [place]-adapted WHO of alogorithm ) Last bone density on 04/02/2017 showed lumbar scoliosis and degenerati ve changes and L3-L4 T score of -0.9 and bone density of 1.075 g/cm . Femoral neck bone density of 0.560 g/cm [compared to 0.588 g percent meter squared compared to prior bone density and T score of -2.6] Tolerating prolia therapy Without side effects. No recent falls or low trauma fractures Recommenda tions: 1. Continue Prolia 60 mg subcutaneo us every 6 months Denosumab reduces the incidence of vertebral fractures by about 68 percent, hip fractures by about 40 percent and non-verteb ral fractures by about 20 percent over three years. I counselled patient about potential side effects related to Denosumab therapy include hypocalcem ia, increased the risk of serious skin infections (celluliti s)/skin rash, rarley ONJ and atypical femur fractures. If insurance doesn't approve prolia or she changes her mind we also discussed the alternativ e option of Evista therapy. 2. BMP/GFR, calcium and 25-hydroxy vitamin D 3. Falls prevention 4. 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 About 17 months According to national osteoporos is Foundation , indication s of anti-osteo porosis pharmacolo gic therapy include: A hip or vertebral [clinical symmetric] fracture T-score = -2.5 and the femoral neck or spine after appropriat e evaluation to exclude secondary causes Low bone mass [T-score between -1 and -2.5 at the femoral neck or spine] and that any of probabilit y of a hip fracture = 3% or a 10 year possibilit y of a major osteoporot ic fracture equals 20% based on [place]-adapted WHO of alogorithm ) Last bone density on 04/02/2017 showed lumbar scoliosis and degenerati ve changes and L3-L4 T score of -0.9 and bone density of 1.075 g/cm . Femoral neck bone density of 0.560 g/cm [compared to 0.588 g percent meter squared compared to prior bone density and T score of -2.6] Tolerating prolia therapy Without side effects. No recent falls or low trauma fractures Recommenda tions: 1. Continue Prolia 60 mg subcutaneo us every 6 months Denosumab reduces the incidence of vertebral fractures by about 68 percent, hip fractures by about 40 percent and non-verteb ral fractures by about 20 percent over three years. I counselled patient about potential side effects related to Denosumab therapy include hypocalcem ia, increased the risk of serious skin infections (celluliti s)/skin rash, rarley ONJ and atypical femur fractures. If insurance doesn't approve prolia or she changes her mind we also discussed the alternativ e option of Evista therapy. 2. BMP/GFR, calcium and 25-hydroxy vitamin D 3. Falls prevention 4. 1 year follow-up visit with bone density while on therapy [id number] ARIEL BLUE MD ENDOCRINO [facility]Y [address] [place] [address] 05/17/2020 09:50:50 05/17/2020 10:21:49 Postmenopausal osteoporosis 190004347 M81.0 N18.9 13 months follow-up visit osteoporos is on therapy Previously on Forteo i.e. About 17 months According to national osteoporos is Foundation , indication s of anti-osteo porosis pharmacolo gic therapy include: A hip or vertebral [clinical symmetric] fracture T-score = -2.5 and the femoral neck or spine after appropriat e evaluation to exclude secondary causes Low bone mass [T-score between -1 and -2.5 at the femoral neck or spine] and that any of probabilit y of a hip fracture = 3% or a 10 year possibilit y of a major osteoporot ic fracture equals 20% based on [place]-adapted WHO of alogorithm ) Last bone density on 04/02/2017 showed lumbar scoliosis and degenerati ve changes and L3-L4 T score of -0.9 and bone density of 1.075 g/cm . Femoral neck bone density of 0.560 g/cm [compared to 0.588 g percent meter squared compared to prior bone density and T score of -2.6] Tolerating prolia therapy Without side effects. No recent falls or low trauma fractures Most recent bone density at [facility] is consistent with osteoporos is by virtue of one third radius T score -3.6 and a stable bone density over lumbar spine, left hip region. Recommenda tions: 1. Continue Prolia 60 mg subcutaneo us every 6 months Denosumab reduces the incidence of vertebral fractures by about 68 percent, hip fractures by about 40 percent and non-verteb ral fractures by about 20 percent over three years. I counselled patient about potential side effects related to Denosumab therapy include hypocalcem ia, increased the risk of serious skin infections (celluliti s)/skin rash, rarley ONJ and atypical femur fractures. If insurance doesn't approve prolia or she changes her mind we also discussed the alternativ e option of Evista therapy. 2. BMP/GFR, calcium and 25-hydroxy vitamin D 3. Falls prevention 4. 1 year follow-up visit with bone density while on therapy [ approved by her insurance] Hypothyroidism 40125861 E03.9 Reported her thinning Check TSH today Continue Brand Synthroid 88 g Patient was instructed on the appropriat e method of levothyrox ine administra tion to be taken every a.m. on an empty stomach as new food, drinks or other medication s for at least 30 minutes. PPI and calcium -containin g preparatio ns is preferred to be given at least of her hours before or after levothyrox in therapy. Further adjustment as appropriat e Prescripti on to follow [id number] ARIEL BLUE MD ENDOCRINO [facility]Y [address] [place] [address] 06/27/2020 09:14:49 06/27/2020 11:09:49 Postmenopausal osteoporosis 934623314 M81.0 N18.9 13 months follow-up visit osteoporos is on therapy Previously on Forteo i.e. About 17 months According to national osteoporos is Foundation , indication s of anti-osteo porosis pharmacolo gic therapy include: A hip or vertebral [clinical symmetric] fracture T-score = -2.5 and the femoral neck or spine after appropriat e evaluation to exclude secondary causes Low bone mass [T-score between -1 and -2.5 at the femoral neck or spine] and that any of probabilit y of a hip fracture = 3% or a 10 year possibilit y of a major osteoporot ic fracture equals 20% based on [place]-adapted WHO of misael ) Last bone density on 04/02/2017 showed lumbar scoliosis and degenerati ve changes and L3-L4 T score of -0.9 and bone density of 1.075 g/cm . Femoral neck bone density of 0.560 g/cm [compared to 0.588 g percent meter squared compared to prior bone density and T score of -2.6] Tolerating prolia therapy Without side effects. No recent falls or low trauma fractures Most recent bone density at [facility] is consistent with osteoporos is by virtue of one third radius T score -3.6 and a stable bone density over lumbar spine, left hip region. Recommenda tions: 1. Continue Prolia 60 mg subcutaneo us every 6 months Denosumab reduces the incidence of vertebral fractures by about 68 percent, hip fractures by about 40 percent and non-verteb ral fractures by about 20 percent over three years. I counselled patient about potential side effects related to Denosumab therapy include hypocalcem ia, increased the risk of serious skin infections (celluliti s)/skin rash, rarley ONJ and atypical femur fractures. If insurance doesn't approve prolia or she changes her mind we also discussed the alternativ e option of Evista therapy. 2. BMP/GFR, calcium and 25-hydroxy vitamin D 3. Falls prevention 4. 1 year follow-up visit with bone density while on therapy [ approved by her insurance] [id number] ARIEL BLUE MD ENDOCRINO LOGY [address] [address] 01/31/2021 12:54:04 01/31/2021 14:23:10 Postmenopausal osteoporosis [id number] M81.0 N18.9 [id number] ARIEL BLUE MD ENDOCRINO LOGY [address] [address] 04/21/2021 08:02:31 04/21/2021 08:34:31 Osteoporosis 56439620 M81.0 Follow-up osteoporos is No recent falls or low trauma fractures Tolerating well prolia 60 mg subcutaneo us every 6 months Last dose of January 2021 Recommenda tions: Continue current therapy i.e. due for her next dose in July 2021 Follow-up bone density at [facility] 1 year follow-up Hypothyroidism 79252922 E03.9 Low TSH Further decreased Synthroid from 88-75 g every a.m. Patient was instructed on the appropriat e method of levothyrox ine administra tion to be taken every a.m. on an empty stomach as new food, drinks or other medication s for at least 30 minutes. PPI and calcium -containin g preparatio ns is preferred to be given at least of her hours before or after levothyrox in therapy. Further adjustment as appropriat e Prescripti on to follow Fatigue 70126680 R53.83 Uncertain etiology No weight loss or other symptoms Denies any fever or chills Evaluate for anemia, and renal insufficie ncy Deficiency of vitamin D3 701277716 E55.9 Currently takes vitamin D 50,000 units weekly Goal vitamin D of above 30 ng per mL Recheck 25 hydroxy vitamin D Further repletion as appropriat e Patient verbalized understand ing and agreed with the above mentioned plan of care. [id number] ARIEL BLUE MD ENDOCRINO LOGY [address] [place] [address] 08/08/2021 09:44:04 08/08/2021 15:12:15 Postmenopausal osteoporosis 607464222 M81.0 N18.9 [id number] [place] [address] [place] [address] 02/11/2022 09:30:21 02/19/2022 08:36:41 Osteoporosis 86020910 M81.0 Follow-up osteoporos is No recent falls or low trauma fractures Tolerating well prolia 60 mg subcutaneo us every 6 months Last dose of January 2021 Recommenda tions: Continue current therapy i.e. due for her next dose in July 2021 Follow-up bone density at [facility] 1 year follow-up [id number] [place] [address] [place] [address] 05/22/2022 12:48:41 05/22/2022 13:37:10 Osteoporosis 62187148 M81.0 Follow-up osteoporos is No recent falls or low trauma fracturesB one density in May showed improved on density over hip region and lumbar spine. Tolerating well prolia 60 mg subcutaneo us every 6 months Last dose in February 2022 Recommenda tions: Continue current therapy i.e. due for her next dose in August 2022 Follow-up bone density at [facility] prevention counseling provided 1 year follow-up Hypothyroidism 99037216 E03.9 FatigueFur ther decreased Synthroid from 75 g every a.m. Patient was instructed on the appropriat e method of levothyrox ine administra tion to be taken every a.m. on an empty stomach as new food, drinks or other medication s for at least 30 minutes. PPI and calcium -containin g preparatio ns is preferred to be given at least of her hours before or after levothyrox in therapy. Further adjustment as appropriat e Prescripti on to follow Vitamin D deficiency 347 75847 E55.9 50,000 units weekly Recheck 2500 to vitamin D Further adjustment as appropriat e Patient verbalized understand ing and agreed with the above mentioned plan of care. [id number] ARIEL BLUE MD ENDOCRINO [facility]Y SB [address] [place] [address] 02/09/2023 10:24:47 02/09/2023 12:55:42 Hypothyroidism 12489972 E03.9 Clinically reported hair loss She denies any palpitatio ns, shaking, excessive sweating or heat intoleranc e Previously was on a higher dose of 88 and wonders if she needs to be on a higher dose Continue current Synthroid 75 mcg every a.m. at presentPat ient was instructed on the appropriat e method of levothyrox in administra tion to be taken every a.m. on an empty stomach as new food, drinks or other medication s for at least 30 minutes. PPI and calcium -containin g preparatio ns is preferred to be given at least of her hours before or after levothyrox in therapy. Check TSH and free T4 today Further adjustment as appropriat e to keep levels within normal range Osteoporosis 20445403 M8 1.0 Follow-up osteoporos isNo recent falls or low trauma fracturesS he missed 1 dose in August2Recomm endations: Continue current therapy received her injection in the office todayFollo w-up bone density at [facility] to be scheduled next office visit after 6 moreFalls prevention counseling provided6- month follow-up [id number] ARIEL BLUE MD ENDOCRINO [facility]Y SB [address] [place] [address] 08/17/2023 10:39:13 08/17/2023 13:22:59 Osteoporosis 04399039 M81.0 Follow-up osteoporos isNo recent falls or low trauma fracturesR eceived her last injection in February 2023Recomm endations: Continue current therapy received her injection in the office todayFollo w-up bone density at [facility] prevention counseling provided Hypothyroidism 81054673 E03.9 She is a still complainin g of hair loss but she denies any fatigue or dry skinShe denies any palpitatio ns, shaking, excessive sweating or heat intoleranc eContinue current Synthroid 75 mcg every a.m. at presentPat ient was instructed on the appropriat e method of levothyrox in administra tion to be taken every a.m. on an empty stomach as new food, drinks or other medication s for at least 30 minutes. PPI and calcium -containin g preparatio ns is preferred to be given at least of her hours before or after levothyrox in therapy.Ch ta TSH and free T4 todayFurth er adjustment as appropriat e to keep levels within normal range Loss of hair [id number] L 65.9 Uncertain etiologyEv aluate for anemia Hyperparathyroidism 6699 9008 E21.3 Mildly elevated PTH in the context of normal 25-hydroxy vitamin D, calcium and kidney function testRechec k PTH and calcium today [id number] ARIEL BLUE MD ENDOCRINO LOGY [address] [place] [address] 02/22/2024 09:34:37 02/22/2024 10:07:01 Osteoporosis 24565924 M81.0 [id number] ARIEL BLUE MD ENDOCRINO LOGY [address] [place] [address] 08/22/2024 09:30:37 08/22/2024 10:33:26 Hypothyroidism 29834428 E03.9 Clinically appears euthyroidC ontinue current Synthroid 75 mcg every a.m. at presentPat ient was instructed on the appropriat e method of levothyrox in administra tion to be taken every a.m. on an empty stomach as new food, drinks or other medication s for at least 30 minutes. PPI and calcium -containin g preparatio ns is preferred to be given at least of her hours before or after levothyrox in therapy.Ch ta TSH and free T4 todayFurth er adjustment as appropriat e to keep levels within normal range Osteoporosis 40862045 M8 1.0 Follow-up osteoporos isNo recent falls or low trauma fracturesR ecommendat ions:Tati coleman current therapy received her injection in the office todayFollo w-up bone density at [facility] in October 2024Falls prevention counseling provided Hyperparathyroidism 6699 9008 E21.3 Mildly elevated PTH in the context of normal 25-hydroxy vitamin D, calcium and kidney function testRechec k PTH and calcium today1 year follow-up Patient verbalized understand ing and agreed with the above mentioned plan of care. [id number] ARIEL BLUE MD ENDOCRINO LOGY [address] [place] [address] 02/27/2025 10:16:07 02/27/2025 11:31:53 Osteoporosis 23495288 M81.0 Health Concerns Section Related Observation LastModified by Organization Detai ls LastModified Time None Recorded Concern Status LastModified by Organization Details LastModified Time None Recorded Advance Directives Directive None Recorded Payers Insurance Date Sequence Insurance Name Policy Number Policy Pink Covered Member ID Pink Member ID Guarantor Name 04/11/2019 2 [employer] (MEDICARE SUPPLEMENT) Nuzhat Lloyd Bae [id number] Nuzhat Lloyd Bae 02/24/2025 2 [employer] (POS II) [id number] Nuzhat Lloyd Bea [id number] Nuzhat Lloyd Bae 03/22/2018 2 [employer] BENEFIT PLAN - AETNA CHOICE POS II (PPO) [id number] Nuzhat Lloyd Bae [id number] Nuzhat Lloyd Bae 02/24/2025 1 [place] Nuzhat Lloyd Bae [id number] Nuzhat Lloyd Bae Notes Date Note Type Note Provider Name and Address Organization Details Recorded Time 02/09/2023 text/html 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 right elbow fracture about 6 years ago status post fall while she was shopping at [employer]. No history of high-dose glucocorticoid therapy. No history of current smoking or excess alcohol consumption.Reported a history of ulcerative visual problem i.e. schatzki ring? She currently takes prolia 60 mg subcutaneous every 6 months [ First dose on 04/07/2018, last dose in February 2022] Interval history:Missed her dose in August 2022No recent falls or low trauma fractures She currently takes Synthroid 75 g down from 88 g every a.m. 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 right elbow fracture about 6 years ago status post fall while she was shopping at [employer]. No history of high-dose glucocorticoid therapy. No history of current smoking or excess alcohol consumption.Reported a history of ulcerative visual problem i.e. schatzki ring? She currently takes prolia 60 mg subcutaneous every 6 months [ First dose on 04/07/2018, etc] Interval history:Last injection in February 2023 No recent falls or low trauma fractures She currently takes Synthroid 75 g every a.m. 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 right elbow fracture about 6 years ago status post fall while she was shopping at [employer]. No history of high-dose glucocorticoid therapy. No history of current smoking or excess alcohol consumption.Reported a history of ulcerative visual problem i.e. schatzki ring? She currently takes prolia 60 mg subcutaneous every 6 months [ First dose on 04/07/2018, etc]Interval history:Last injection in February 2024No recent falls or low trauma fractures She currently takes Synthroid 75 g every a.m. appropriately as instructed. Takes apzo-unm-xemlihp vitamin vitamin D/calcium ARIEL BLUE MD [address] [place] [address], [phone], [place] [facility] 08/22/2024 11:34:16 OBGyn Episode No OBEpisode recorded.
--- OUTSIDE RECORDS SUMMARY | 2025-08-18 00:29 | XMS_ITS | Clinical Summary ---
Author Organization [facility] , [facility] Address [address] [place] [address] Phone Care Team Providers Care Tool And Die Repair Name Role Phone Caio RIVERA, Hernando Young Unavailable [phone] FE RIVERA, CELI Bennett Primary Care Provider [phone] Reason for Visit and Chief Complaint The Chief Complaint is: right hand pain Problems Includes: Problems addressed during this encounter and other active Problems Current Visit Onset Date Resolved Date Provider Conditio n Status Lower Back Pain 08/19/2018 Hernando Kearney MD Act scot Last Documented On 8 9:16AM ; [facility], [facility] Past Visits Onset Date Resolved Date Provider Condition Status Soft Tissue Pain Hand 04/02/2021 Zeb fierro MD Active Last Documented On 1 8:13AM ; [facility], [facility] Plan of Treatment After consent had been obtained the right ring finger A1 michael was injected with 0.5 cc of Kenalog-10 and 0.5 cc of 1% lidocaine. The patient tolerated the injection well. Follow-up as needed. I did discuss surgery with the patient in detail. She lives in [place] so I told her that if she wants to schedule over the phone if the triggering recurs for that finger she could do so. - Last Documented On 07/25/2021 1:02PM ; [facility], [facility] Assessments Includes: Assessments from this encounter No Assessments Recorded Medical Equipment - Implanted Devices Includes: Current Devices No Medical Equipment Recorded Medications Includes: Medications discussed during this encounter and other current Medications Current Medications (continue as prescribed) Flovent Diskus 50 MCG/BLIST Inhalation Aerosol Powder Breath Activated 04/13/2022 Provider: Diagnosis: Last Documented On 2 11:15AM By Kimberly Shaffer ; [facility] Adult Aspirin EC Low Strengt h 81 MG Oral Tablet Delayed Release 04/13/2022 Provider: Diagnosis: Last Documented On 2 11:15AM By Kimberly Shaffre ; [facility] Stiolto Respimat 2.5-2.5 MCG/ACT Inhalation Aero rojelio Solution 02/17/2022 Provider: Diagnosis: Last Documented On 2 9:44AM By Kimberly Sargent ; [facility] Vitamin D (Ergocalciferol) 1 .25 MG (70931 UT) Oral Capsule 02/11/2022 Provider: SARITHA MCKEON MD Diagnosis: Last Documented On 2 9:44AM By Kimberly Sargent ; [facility] Vitamin D (Ergocalciferol) 1 .25 MG (44866 UT) Oral Capsule 02/11/2022 Provider: SARITHA MCKEON MD Diagnosis: Last Documented On 2 9:44AM By Kimberly Sargent ; [facility] Isosorbide Mononitrate ER 30 MG Oral Tablet Extended Release 24 Hour 02/04/2022 Provider: ZEB CHRISTENSEN MD Diagnosis: Last Documented On 2 9:44AM By Kimberly Sargent ; [facility] Rosuvastatin Calcium 40 MG Oral Tablet 02/04/2022 Pr ovider: ZEB JOHNSON MD Diagnosis: Last Documented On 2 9:44AM By Kimberly Sargent ; [facility] Synthroid 75 MCG Oral Tablet 02/03/2022 Provider: Diagnosis: Last Documented On 2 9:44AM By Kimberly Sargent ; [facility] Past Medications on file Ibuprofen 400 MG Oral Tablet 06/08/2022 - 06/11/2022 P ropriti: Zeb King MD Diagnosis: Take 1 tablet every 8 hrs prn pain Last Documented On 2 5:02PM By Minerva Blood ; [facility] Medications Administered Includes: Administered Medications from this encounter No Administered Medications Recorded Vital Signs Includes: Vital Signs from this encounter Vital Name 07/25/2021 09:46A Blood Pressure Sitting (mmHg) 104/65 Pulse Rate-Sitting (bpm) 69 Height (in) 65 Weight (lb) 150 Body Mass Index (kg/m2) 25.0 Body Surface Area (m2) 1.8 Note: st Last Documented: On 07/25/2021 9:47AM ; [facility] Results Includes: Results discussed during this encounter No Results Recorded For Specified Dates History of Present Illness Includes: History of Present Illness from this encounter JOSE ALBERTO Bae is a 80 year old female. - Allergy list reviewed - Problem list reviewed - Medication reconciliation performed - Medication list reviewed Social History Description Last Updated Caffeine use 07/25/2021 Last Documented On 1 1:02PM ; [facility] Exercising regularly 07/25/2021 Last Documented On 1 1:02PM ; [facility] No recent change in diet 07/25/2021 Last Documented On 1 1:02PM ; [facility] No tobacco use 07/25/2021 Last Documented On 1 1:02PM ; [facility] Non-smoker 07/25/2021 Last Documented On 1 1:02PM ; [facility] Not a current smoker 07/25/2021 Last Documented On 1 1:02PM ; [facility] Not using alcohol 07/25/2021 Last Documented On 1 1:02PM ; [facility] Not using drugs 07/25/2021 Last Documented On 1 1:02PM ; [facility], [facility] Smoking status : Never smoker 07/25/2021 Last Documented On 1 1:02PM ; [facility], [facility] Procedures and Surgical History Includes: Procedures from this encounter Procedures Code Diagnosis Performing Provider Service L ocation Service Date history of orthopedic options: physical therapy Last Documented On 1 9:35AM ; [facility] use of tobacco assessment performed 1000F Last Documented On 1 9:35AM ; [facility] Pt received screening for fall risk G8270 Last Documented On 1 9:36AM ; [facility] Clinical summary provided to patient Last Documented On 1 9:35AM ; [facility], [facility] Surgical History Last Updated History of heart surgery 3 stents 04/23 0 07/25/2021 Last Documented On 1 1:02PM ; [facility], [facility] Medical History Includes: Medical History addressed during this encounter Description Last Updated Cataract, macular degeneration, DNC 07/09 Last Documented On 1 1:02PM ; [facility], [facility] Past medical history non-con tributory: ~Hyperlipidemia ~Acid Reflux ~Graves disease ~COPD 07/25/2021 Last Documented On 1 1:02PM ; [facility], [facility] A previous fracture Right elbow, right m iddle finger 07/25/2021 Last Documented On 1 1:02PM ; [facility], [facility] History of acute myocardial infarction H eart attack 07/25/2021 Last Documented On 1 1:02PM ; [facility] History of osteoporosis 07/25/2021 Last Documented On 1 1:02PM ; [facility] Thyroid disease hyper 07/25/2021 Last Documented On 1 1:02PM ; [facility], [facility] Family History Includes: Family History addressed during this encounter Description Last Updated Paternal history of heart attack, matern al history of stroke 07/25/2021 Last Documented On 1 1:02PM ; [facility] Family history of heart disease 07/25/20 21 Last Documented On 1 1:02PM ; [facility] Review of Systems Includes: Review of Systems [...] No complaint of seasonal allergic reaction. reviewed 07/25/2021 Mental Status Includes: Mental Status from this encounter Description No anxiety Functional Status Includes: Functional Status from this encounter No Functional Status Recorded Physical Exam Includes: Physical Exam from this encounter Allergies Includes: Active Allergies Substance Type Reaction Onset Date Resolved Date Statu s Tetracycline HCl Allergy 10/20/2018 Ac tive Last Documented On 2 10:28AM ; [facility] Propoxyphene Allergy 04/13/2022 Active Last Documented On 2 10:28AM ; [facility] Doxycycline Hyclate Allergy 04/13/2022 Active Last Documented On 2 10:28AM ; [facility] Darvon Allergy 10/20/2018 Active Last Documented On 2 10:28AM ; [facility] Encounters Encounter Provider Location Date Check-In Time Check- Out Time Diagnosis Follow Up Zeb King MD [facility] 1 9:32AM 10:35AM Insurance Includes: Active Insurance Policies Plan Name Member ID Group # Subscriber Relationship Effect scot Dates 1 - Medicare Part B [facility] [id number] Nuzhat Bae Self 08/08/2007 - Unknown 2 - MHBP [id number] Nuzhat Bae Self 11/08/2020 - Unknown Clinical Notes Includes: Clinical Notes from this encounter No Clinical Notes Recorded
--- OUTSIDE RECORDS SUMMARY | 2025-08-18 00:29 | XMS_ITS | Clinical Summary ---
Author Organization [employer] ([place], [place], [place], [place]) Address [address] [place] [address] Care Team Providers Care Counter Pocket Trimmer Name Role Phone Vicente Loyd MD Primary Care Provider [phone] Social History Tobacco Use Types Packs/Day Years Used Date Smoking Tobacco: Never Assessed Food Insecurity Answer Date Recorded Food run out past 12 months Not on file 11/08 Food did not last past 12 months Not on file 11/19/2023 Employment Answer Date Recorded Help finding and keeping a job Not on file 0 11/19/2023 Family and Community Support Answer Uhmberto e Recorded Help with Day to Day Activities Not on file 11/19/2023 Feeling Lonely or Isolated Not on file 11/19 Educational Attainment Answer Date Les rded Speak language other than Kuwaiti at home Not on file 11/19/2023 Want [...] Pneumococcal 50+ years (2 of 2 - PCV20 or PCV21) 01/12/2019 01/12/2018 Falls Risk Screening 11/08/2024 COVID-19 VACCINE (5 - 2024-2 6 season) 2025 04/17/2022, 07/16/2021, 12/30/2020, Additional history exists Influenza Vaccine (#1) 2025 , 08/30/2020, 08/18/2019, [...] therapy. RISK FACTORS: Estrogen deficiency. COMPARISON STUDY: [facility] FINDINGS: Bone densitometry was performed using a Mobile Shareholder unit. Sites measured included the spine and [...] therapy. RISK FACTORS: Estrogen deficiency. COMPARISON STUDY: [facility] FINDINGS: Bone densitometry was performed using a Mobile Shareholder unit. Sites measured included the spine and [...] Relevant to Health Maintenance Insurance [place] [id number] MEDICARE PART A B Member Subscriber Plan / Payer (Ef fective 2007-Present) Name:BaeNuzhat Member ID:[id number] Relation to Subscriber:Self Name:BaeNuzhat vela Subscriber ID:[id number] Payer ID:[id number] Group ID:Not on file Type:Not on file Address: [address] [place] [address] [employer] Care Teams Counter Pocket Trimmer Relationship Specialty Start Date End Date Vicente Loyd MD [address] [place] [id number] PCP - General General Internal Medicine 06/18/23
--- OUTSIDE RECORDS SUMMARY | 2025-08-18 00:29 | XMS_ITS | Clinical Summary ---
Author Organization [facility] , [facility] Address [address] [place] [address] Phone Care Team Providers Care Proofer Apprentice Name Role Phone Caio RIVERA, Hernando Young Unavailable [phone] FE RIVERA, CELI Bennett Primary Care Provider [phone] Reason for Visit and Chief Complaint [Patient Encounter] Problems Includes: Problems addressed during this encounter and other active Problems All Visits Onset Date Resolved Date Provider Condition S tatus Soft Tissue Pain Hand 04/02/2021 Zeb fierro MD Active Last Documented On 1 8:13AM ; [facility], [facility] Lower Back Pain 08/19/2018 Hernando Kearney MD Act scot Last Documented On 8 9:16AM ; [facility], [facility] Plan of Treatment No Plan of Treatment [...] Documented On 2 11:15AM By Kimberly Julian [facility], [facility] Adult Aspirin EC Low Strengt h 81 MG Oral Tablet Delayed Release 04/13/2022 Provider: Diagnosis: Last Documented On 2 11:15AM By Kimberly Julian [facility], [facility] Stiolto Respimat 2.5-2.5 MCG/ACT Inhalation Aero rojelio Solution 02/17/2022 Provider: Diagnosis: Last Documented On 2 9:44AM By Kimberly Julian [facility], [facility] Vitamin D (Ergocalciferol) 1 .25 MG (63518 UT) Oral Capsule 02/11/2022 Provider: SARITHA MCKEON MD Diagnosis: Last Documented On 2 9:44AM By Kimberly Sargent ; [facility], [facility] Vitamin D (Ergocalciferol) 1 .25 MG (08638 UT) Oral Capsule 02/11/2022 Provider: SARITHA MCKEON MD Diagnosis: Last Documented On 2 9:44AM By Kimberly Sargent ; [facility], [facility] Isosorbide Mononitrate ER 30 MG Oral Tablet Extended Release 24 Hour 02/04/2022 Provider: ZEB CHRISTENSEN MD Diagnosis: Last Documented On 2 9:44AM By Kimberly Sargent ; [facility], [facility] Rosuvastatin Calcium 40 MG Oral Tablet 02/04/2022 Pr ovider: ZEB JOHNSON MD Diagnosis: Last Documented On 2 9:44AM By Kimberly Sargent ; [facility], [facility] Synthroid 75 MCG Oral Tablet 02/03/2022 Provider: Diagnosis: Last Documented On 2 9:44AM By Kimberly Sargent ; [facility], [facility] Medications Administered Includes: Administered Medications from [...] tive Last Documented On 2 10:28AM ; [facility] Propoxyphene Allergy 04/13/2022 Active Last Documented On 2 10:28AM ; [facility], [facility] Doxycycline Hyclate Allergy 04/13/2022 Active Last Documented On 2 10:28AM ; [facility], [facility] Darvon Allergy 10/20/2018 Active Last Documented On 2 10:28AM ; [facility], [facility] Encounters Encounter Provider Location Date Check-In Time Check-Out Time Diagnosis [Patient Encounter] Zeb King MD 06/09/2022 4:49PM 11:59PM Insurance Includes: Active Insurance Policies Plan Name Member ID Group # Subscriber Relationship Effect scot Dates 1 - Medicare Part B [facility] [id number] Nuzhat Bae Self 08/08/2007 - Unknown 2 - MHBP [id number] Nuzhat Bae Self 11/08/2020 - Unknown Clinical Notes Includes: Clinical Notes from this encounter No Clinical Notes Recorded
--- OUTSIDE RECORDS SUMMARY | 2025-08-18 00:29 | XMS_ITS | Data Portability ---
Author Organization [facility] & [facility] ADMIN Address [address] [place] [id number] Assessment No assessment recorded. Plan of Treatment Reminders Order Date Submit Date Provider Last Modified By Organization Details Last Modified Time Details Appointments None record ed. Lab None record ed. Referral None record ed. Procedures None record ed. Surgeries None record ed. Imaging None record ed. Medication Orders None record ed. Patient TargetsNo targets recorded. Patient InstructionsNo instructions recorded. Reason for Referral None Reported. Procedures Surgical History Date Name Laterality Status Provider Name and Address Organization Details Recorded Time 01/04/20 24 Fiberoptic Laryngoscopy completed Eusebio Evert [facility] 01/04/2024 13:54:53 Imaging Results None recorded. Procedure Notes None recorded. Medical Equipment None Reported. Allergies Allergen ID Allergen Name Allergen Category Reaction Reaction Severity Criticality Documentation Date Start Date Code Code System Note Provider Name and Address Organization Details Recorded Time 766659 doxycycli ne Not available other Not available high 01/04/2024 3640 RxNorm blist ers on body Ashanti Tran wilson [facility] 13:18:06 Medications Name Sig Start Date Stop Date Status Note LastModified by Organization Details LastModified Time prednisone 10 mg tablet 12/27 completed Not Available Not Available Not Available albuterol sulfate 2.5 mg/3 mL (0.083 %) solution for nebulizatio n INHALE 1 VIAL BY NEBULIZER EVERY 4 HOURS NEEDED FOR WHEEZE active Not Available Not Available No t Available azithromyci n 250 mg tablet TAKE 1 TABLET BY MOUTH ONCE DAILY FOR 4 DAYS 12/27 completed Not Available Not Available Not Available isosorbide mononitrate ER 30 mg tablet,exte nded release 24 hr TAKE 1 TABLET BY MOUTH EVERY DAY active Not Available Not Available No t Available levofloxaci n 250 mg tablet TAKE 1 TABLET BY MOUTH EVERY 24 HOURS FOR 3 DAYS 12/27 completed Not Available Not Available Not Available cephalexin 500 mg capsule TAKE 2 CAPSULES BY MOUTH EVERY 12 HOURS FOR 10 DAYS 12/27 completed Not Available Not Available Not Available Synthroid 75 mcg tablet TAKE 1 TABLET BY MOUTH EVERY DAY IN THE MORNING active Not Available Not Available No t Available ergocalcife rol (vitamin D2) 1,250 mcg (50,000 unit) capsule TAKE 1 (ONE) CAPSULE EVERY OTHER WEEK active Not Available Not Available No t Available epinephrine 0.3 mg/0.3 mL injection, auto-inject or INJECT 1 PEN IN THE MUSCLE ONE TIME DIRECTED active Not Available Not Available No t Available levofloxaci n 750 mg tablet TAKE 1 TABLET BY MOUTH EVERY DAY FOR 7 DAYS 12/27 completed Not Available Not Available Not Available cefdinir 300 mg capsule TAKE 1 CAPSULE BY MOUTH EVERY 12 HOURS FOR 10 DAYS 12/27 completed Not Available Not Available Not Available amoxicillin 875 mg-potassiu m clavulanate 125 mg tablet TAKE 1 TABLET BY MOUTH EVERY 12 HOURS WITH MEALS FOR 10 DAYS 12/27 completed Not Available Not Available Not Available rosuvastati n 40 mg tablet TAKE 1 TABLET BY MOUTH EVERY DAY active Not Available Not Available No t Available Flovent HFA 220 mcg/actuati on aerosol inhaler TAKE 2 PUFFS BY MOUTH TWICE A DAY 01/04 completed Not Available Not Available Not Available Stiolto Respimat 2.5 mcg-2.5 mcg/actuati on solution for inhalation INHALE 2 PUFFS BY MOUTH EVERY DAY active Not Available Not Available No t Available Qvar RediHaler 80 mcg/actuati on HFA breath activated aerosol INHALE 1 PUFF TWICE A DAY active Not Available Not Available No t Available aspirin 81 mg capsule Take 1 capsule every day by oral route. active Not Available Not Available No t Available Vitals Date Recorded Body height Body mass index (BMI) Body weight Body temperature Provider Name and Address Organization Details Last Updated DateTime 01/04/2024 165.1 cm 24.5 kg/m2 66733.08 g 99.3 [degF] Ashanti GRIMALDO [facility][1] 01/04/2024 13:17:17 Social History None recorded. Functional Status None recorded. Mental Status None recorded. Family History Nothing Reported. Medical History Condition Response Allergies/Hayfever Y Heart Problems N None N Heart Conditions N Emphysema N Migraines N Thyroid Problems Y Developmental Delay N Depression N Glaucoma N Anemia N Immune System Disorder N Anesthesia Complications N Heart Attack ([place]) Y Diabetes N Anxiety Disorder N Bleeding Disorder N Hearing Loss N Arthritis N Tuberculosis N Hyperlipidemia N Acid Reflux (GERD) Y Cancer N Stroke N Asthma Y Sleep Disorder N GERD/Reflux N Heart Disease N Headaches N Fibromyalgia N Hypertension N Speech Delay N Kidney Disease Y Gynecological HistoryNo gynecological history recorded. Obstetrics History GPAL:G 0 P 0 0 0 0 Past Encounters Encounter ID Performer Location Encounter Start Date Encounter Closed Date Diagnosis/Indication Diagnosis SNOMED-CT Code Diagnosis ICD10 Code Diagnosis IMO Codes Diagnosis Note [id number] Earnestine Alvarado MD [facility] [facility] [place] [address] 01/04/2024 13:00:17 01/04/2024 14:02:37 Change in voice 205490878 R49.9 Explained to the patient I saw nothing concerning on laryngosco py exam today. No mass/lesio n/polyp, paralysis seen. Tonsils are absent. Explained she may be experienci ng a glottic gap that is consistent with age. Explained she could undergo voice therapy to help strengthen her vocal cords, but she is not interested at this time. Should she change her mind, I will be happy to refer her to Speech Therapy. I suspect the event she experience d in October could have been a superior laryngeal nerve spasm, though this can't be confirmed. I will see her back as needed. History of Marquita pelayo [id number] Z87.19 Health Concerns Section Related Observation LastModified by Organization Detai ls LastModified Time None Recorded Concern Status LastModified by Organization Details LastModified Time None Recorded Advance Directives Directive None Recorded Payers Insurance Date Sequence Insurance Name Policy Number Policy Pink Covered Member ID Pink Member ID Guarantor Name 01/04/2024 2 [employer] - [employer] B[employer]EFIT PLAN (POS II) [id number] Nuzhat Bae [id number] Nuzhat Bae 12/20/2023 1 MEDICARE-RE (MEDICARE) Nuzhat Bae [id number] Nuzhat Bae Notes Date Note Type Note Provider Name and Address Organization Details Recorded Time 01/04/2024 text/html 01/04/24- 83 yo female patient here for hoarseness. Has been experiencing symptoms off and on for 4-5 years and it is getting worse. She is not having difficulty swallowing but she states she often gets choked on her saliva. She will sometimes loose her voice completely. Patient states she has her esophagus stretched every 4-[address] Warren[address] She said a few days before Mark she experienced a situation where she was not able to breath or talk for about seven minutes. She was able to use her rescue inhaler and be seen by her Salesperson [employer], Dr. Paige and they referred her to us. Patient has never had a tonsillectomy. Earnestine Alvarado MD [address] [facility], [place], [address], [place] - [place] - [place] & [place] 01/05/2024 16:36:38 OBGyn Episode No OBEpisode recorded.
--- OUTSIDE RECORDS SUMMARY | 2025-08-18 00:29 | XMS_ITS ---
Care Plan - [facility], [facility] Created on: August 18, 2025 Catalino Nuzhat : [id number] Sex: Female Author Organization [facility] Address [address] [place] [address] Phone Care Team Providers Care Instructor Flying Name Role Phone Caio RIVERA, Hernando Young Unavailable [phone] FE RIVERA, CELI Bennett Primary Care Provider [phone]
--- OUTSIDE RECORDS SUMMARY | 2025-08-18 00:29 | XMS_ITS | Clinical Summary ---
Author Organization [facility] Address [address] [place] [address] Care Team Providers Care Preschool Adviser Name Role Phone Vicente Loyd MD Primary Care Provider [phone] Allergies Active Allergy Reactions Criticality Noted Date [...] MORNING Active vitamin D (ERGOCALCIFEROL) 1.25 MG (81902 UT) capsule capsule Take 1 capsule by [...] CAD (coronary artery disease) 04/29/2016 Overview (04/29/2016): [facility] 6-20-16, Susana Parmar Subtotal proximal occlusion [...] reducing 90% stenosis to 0%. Non-ST elevation UT (NSTEMI) 04/27/2016 Hypertension 04/27/2016 Dyslipidemia 04/27/2016 Hypothyroid [...] Immunizations Immunization Administration Dates Next Due COVID-19 ([employer]) Purple Cap Monovalent 12/30/2020,12/09/2020 Fluad Quad 65+ [...] COLONOSCOPY 09/15/2022 09/15/2012 COLORECTAL CANCER SCREENING 09/15/2022 INFLUENZA VACCINE 06/08/2025 09/08/2024, , 08/20/2022, Additional history exists COVID-19 Vaccine (5 - 2024-2 6 season) 2025 04/17/2022, 07/16/2021, 12/30/2020, Additional history exists DXA SCAN 10/21/2025 10/21/2023 MAMMOGRAM Discontinued 06/18/2023, 06/08, 06/12/2022, Additional history exists Pneumococcal Vaccine 50+ Completed 03/03/2024, 0305/2018 Medical Devices Implanted Type Area Central Processing Tech Device Identifier Shelf Expiration Date Model / Serial / Lot Stent Xience [employer] Rx [id number] - [id number] Implanted:Qty: 1 on 04/27/2016 by Susana Parmar MD at [facility] 12/29/2018 [id number] / / [id number] Stent [employer]ience [employer] Rx [id number] - [id number] Implanted:Qty: 1 on 04/27/2016 by Susana Parmar MD at [facility] 01/15/2019 [id number] / / [id number] Stent [employer]ience Al[employer] Rx [id number] - [id number] Implanted:Qty: 1 on 04/27/2016 by Susana Parmar MD at [facility] [id number] / / Procedures Procedure Name Priority Date/Time Associated Diagnosis Comments LIPID PANEL Routine 04/27/2016 10:36 PM EDT from Last 3 Months or Most Recently Relevant to Health Maintenance Results * (ABNORMAL) Once Lipid panel (04/27/2016 10:36 PM EDT) Total Cholesterol 235(H) 0 - 200 mg/dL 04/27/2016 11:23 PM EDT [facility] Triglycerides 236(H) 0 - 150 mg/dL 04/27/2016 11:23 PM EDT [facility] HDL Cholesterol 36(L) 40 - 60 mg/dL 04/27/2016 11:23 PM EDT [facility] VLDL Cholesterol 47.2 mg/dL 04/27/20 16 11:23 PM EDT [facility] LDL/HDL Ratio 4.22 04/27/2016 11:23 PM EDT [facility] LDL Cholesterol 128 0 - 130 mg/dL 04/27/2016 11:23 PM EDT [facility] Blood specimen (specimen) Line / Unknown 04/27/2016 10:36 PM EDT 04/27/2016 10:36 PM EDT [facility] - 04/27/2016 11:23 PM EDT [...] MD LAB BLOOD ORDERABLES Final Resul t [facility]
[address] [id number], [place] [phone] from Last 3 Months or Most Recently [...] 2:17 PM 04/27/2016 5:43 PM Care Teams Preschool Adviser Relationship Specialty Start Date End Date Vicente Loyd MD [address] [facility] [address] [place] [address] PCP - General Internal Medicine 05/14/16
--- NOTE | 2025-08-18 00:34 | XR_ITS ---
PROCEDURE INFORMATION: Exam: XR Chest Exam date and time: 08/18/2025 12:49 AM Age: 84 years old Clinical indication: Pain; Chest pressure; Additional info: Symptoms similar to past mi TECHNIQUE: Imaging protocol: Radiologic exam of the chest. Views: 1 view. Total images: 1 COMPARISON: CR XR CHEST PORTABLE 08/17/2025 7:30 PM FINDINGS: Tubes, catheters and devices: EKG leads are present. Lungs: Unremarkable. No consolidation. No pulmonary vascular congestion or edema. Pleural spaces: Unremarkable. No pleural effusion. No pneumothorax. Heart/Mediastinum: Unremarkable. No cardiomegaly. No mediastinal widening or hilar enlargement. Vasculature: Mildly atherosclerotic and tortuous thoracic aorta. Bones/joints: Osteopenia. Stable chest wall structures. Soft tissues: Breast attenuation artifact. IMPRESSION: No radiographically acute cardiopulmonary process.
--- NOTE | 2025-08-18 00:42 | ECG_ITS ---
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
--- NOTE | 2025-08-18 00:45 | PC.NURSE ---
resp contacted and made aware of need for VBG
[2025-08-18 00:49] LABS: VBG HCO3 22.5 mmol/L (23-30); VBG PCO2 39.6 mmol/L (35-51); VBG PH 7.37 mmol/L (7.31-7.41); VBG PO2 40.3 mmol/L (28-40)
[2025-08-18 00:53] LABS: Lactate Venous 4.0 mmol/L (0.4-2.0)
[2025-08-18] MEDS: ASPIRIN 81MG CHEWABLE TABLET 324 MG PO (00:55)
[2025-08-18 01:07] LABS: Hematocrit 41.7 % (37.0-47.0); Hemoglobin 13.4 g/dL (12.2-16.2); Immature Granulocytes % 0.5 %; Mean Corpuscular HGB Conc 32.1 g/dL (31.8-35.4); Mean Corpuscular Hemoglobin 29.6 pg (27.0-31.2); Mean Corpuscular Volume 92.1 fl (81-99); Nucleated Red Blood Cells % 0 %; Platelet Count 234 K/mm3 (142-424); Red Blood Count 4.53 M/mm3 (4.20-5.40); Red Cell Distribution Width-SD 52.6 fL; White Blood Count 10.5 K/mm3 (4.8-10.8)
[2025-08-18 01:23] LABS: Alanine Aminotransferase 24 U/L (12-78); Albumin Level 3.8 g/dl (3.5-5.0); Albumin/Globulin Ratio 1.5 (1.1-1.8); Alkaline Phosphatase 81 U/L (38-126); Anion Gap 16.4 mEq/L (5-15); Aspartate Amino Transferase 30 U/L (14-36); Bilirubin,Total 0.5 mg/dl (0.2-1.3); Blood Urea Nitrogen 12 mg/dl (7-17); Calcium 8.8 mg/dl (8.4-10.2); Carbon Dioxide 22 mmol/L (22.0-30.0); Chloride 103 mmol/L (98-107); Creatinine Clearance Estimated 45 mL/min (50-200); Creatinine,Serum 0.90 mg/dl (0.52-1.04); Estimated Glomerular Filt Rate 60 ml/min (>60); GFR (African American) 73 ML/MIN (>60); Globulin 2.6 g/dL (1.3-3.2); Glucose 228 mg/dl (74-100); Potassium 3.4 mmoL/L (3.5-5.1); Sodium 138 mmol/L (136-145); Total Protein,Serum 6.4 g/dl (6.3-8.2)
[2025-08-18 01:46] LABS: Troponin I < 0.01 ng/ml (0.00-0.034)
[2025-08-18] MEDS: LACTATED RINGERS 1000ML 1,000 ML 999 ML IV (01:52)
--- NOTE | 2025-08-18 02:37 | HMH.EDGENADL ---
Discharge Plan Disposition Patient Disposition: Admitted Condition: Good Prescriptions Prescriptions: No Action ergocalciferol (vitamin D2) 1,250 mcg (50,000 unit) capsule 1,250 mcg PO DIRECTED Patient Comments: TAKE 1 (ONE) CAPSULE EVERY OTHER WEEK Rx Instructions: Every other week levofloxacin 500 mg tablet 500 mg PO DAILY Qty: 7 0RF Arnuity Ellipta 100 mcg/actuation blister with device 1 inh inhalation DAILY naproxen sodium 550 mg tablet 550 mg PO BID PRN (Reason: pain) Qty: 60 1RF Rx Instructions: Take with food or meal tizanidine 2 mg tablet 2 mg PO TID PRN (Reason: muscle spasticity) Qty: 30 1RF isosorbide mononitrate 30 MG tablet 30 mg PO DAILY albuterol sulfate [Ventolin HFA] 18 GM HFA aerosol inhaler 1 - 2 puffs inhalation Q4-6H PRN (Reason: Shortness Of Breath Or Wheezing) aspirin [Aspir-81] 81 MG tablet,delayed release (DR/EC) 1 tab PO DAILY rosuvastatin 40 mg tablet 40 mg PO DAILY Patient Comments: TAKE 1 TABLET BY MOUTH EVERY DAY Stiolto Respimat 2.5-2.5 mcg/actuation mist 2 puff inhalation DAILY Patient Comments: INHALE 2 PUFFS BY MOUTH EVERY DAY levothyroxine [Synthroid] 75 mcg tablet 75 mcg PO DAILY Patient Comments: TAKE 1 TABLET BY MOUTH EVERY DAY IN THE MORNING prednisone 20 mg tablet 40 mg PO DAILY 5 Days Qty: 10 0RF Referrals Follow up/Referrals: Vicente Loyd MD [Primary Care Provider, Medical] - See instructions Clinical Impressions Clinical Impression: Elevated troponin, Acidosis, lactic Print Language Print Language: [place] Discharge ED Provider: Shi Bui General Adult HPI General Chief complaint: Arrhythmia/Palpitations Stated complaint: Heart rate 102, SOB Time Seen by Provider: 08/18/25 00:25 Mode of Arrival: Wheelchair Source of Information: Patient Description of Symptoms (Recalled from ER Triage Doc. by RN): pt presents to the ed for evaluation of high heart rate that was according to her at home was 99-101 . Pt reports to being discharged from this ED approx 2 hours ago with COPD exacerbation and given steroids and breathing treatments in the department. Pt reports it's not normal for my heart rate to be that way VSS at the time of triage. History of Present Illness HPI narrative: 84-year-old female presents to the ER shortly after being discharged from her previous encounter for evaluation of high heart rate and aching near her right ear. Patient was in the ER only a few hours ago and treated for COPD exacerbation with nebulizer treatments and steroids. Patient reports when she got home she felt like her heart rate was high so she checked and her pulse ox told her it was 99-102 . She reports at 1 point her pulse ox flashed a heart rate of 34 but it was immediately back up into the 90-100s. Her oxygen saturation reportedly was good. In the patient's previous encounter earlier today she stated that her pulse ox sat her oxygen was only 69% briefly but when she was in the ER she was in the 90s on room air. Patient states she was mostly worried because pain near her ears is what she had when she had her last heart attack. She states when she had her last heart attack she had pain near both ears and this is only near the right 1. She states the pulse ox that she uses at home was recommended by her doctor but she has never been taught how to use it. Patient states she is taking all home medications as prescribed. She states she feels well at this time. Discomfort started 1 hour prior to arrival. She denies any chest pain or difficulty breathing, no sensation of palpitations. No numbness, tingling, or weakness. No dizziness, headache, nausea, or vomiting. She states the shortness of breath with which she presented earlier tonight has not come back and she feels like she is breathing well without cough. No other complaints or concerns. Related Data Home Medications ?Medication ?Instructions ?Recorded ?Confirmed albuterol sulfate 90 mcg/actuation 1 - 2 puffs inhalation Q4-6H PRN 10/12/18 08/17/25 aerosol inhaler (Ventolin HFA) Shortness Of Breath Or Wheezing isosorbide mononitrate 30 mg 30 mg PO DAILY Heart disease 10/12/18 08/17/25 tablet,extended release 24 hr aspirin 81 mg tablet,delayed 1 tab PO DAILY thinner 10/14/18 08/17/25 release (Aspir-) rosuvastatin 40 mg tablet 40 mg PO DAILY . 05/01/23 08/17/25 tiotropium 2.5 mcg-olodaterol 2.5 2 puff inhalation DAILY COPD 05/01/23 08/17/25 mcg/actuation mist for inhalation (Stiolto Respimat) ergocalciferol (vitamin D2) 1,250 1,250 mcg PO DIRECTED 06/26/24 08/17/25 mcg (50,000 unit) capsule fluticasone furoate 100 1 inh inhalation DAILY 04/25/25 08/17/25 mcg/actuation blister powder for inhalation (Arnuity Ellipta) levothyroxine 75 mcg tablet 75 mcg PO DAILY 08/17/25 08/17/25 (Synthroid) Previous Rx's ?Medication ?Instructions ?Recorded naproxen sodium 550 mg tablet 550 mg PO BID PRN pain #60 tabs 12/26/24 tizanidine 2 mg tablet 2 mg PO TID PRN muscle spasticity 02/14/25 #30 tabs levofloxacin 500 mg tablet 500 mg PO DAILY #7 tabs 08/15/25 prednisone 20 mg tablet 40 mg (2 x 20 mg) PO DAILY 5 days 08/17/25 #10 tabs Allergies Allergy/AdvReac Type Severity Reaction Status Date / Time propoxyphene Allergy Unknown Rash Verified 08/15/25 12:45 doxycycline Allergy Rash Verified 08/15/25 12:45 tetracycline Allergy Rash Verified 08/15/25 12:45 [facility] Disclaimer: The information contained in this section may have been updated after the patient was seen, as this information can be updated by other users. Social History Smoking Status: Never smoker alcohol intake: never current occupational status: retired Travel in the last 8 weeks?: Inside the [facility] housing: house caffeine: No Have you lived/traveled outside [place] in past 30 days?: No Contact w/someone who lives/traveled outside [place] past 30 days?: No Exposure to someone with infectious disease in past 14 days?: No Do you have a fever (greater than 100.4 F or 38 C)?: No Have you tested positive for COVID-19?: No Exposed to someone with COVID-19 in past 14 days?: No Do you have a sore throat?: No Do you have a cough?: No Do you have any weakness?: No Do you have any diarrhea?: No Are you experiencing any unusual bleeding?: No Do you have any muscle aches/pain?: No Do you have any abdominal pain?: No Are you experiencing loss of taste or smell?: No Other Medical History Have you received the Pneumonia Vaccine: Yes ROS Obtained: Yes Systems reviewed as appropriate & no additional complaints except as documented Per HPI Physical Exam General General appearance: alert and in no apparent distress Head Head exam: atraumatic and normocephalic Eye Eye exam: Present PERRL and EOMI ENT ENT exam: Present mucous membranes moist Neck Neck exam: Present normal inspection and full ROM; Absent tenderness, lymphadenopathy or thyromegaly Chest Chest inspection: Present symmetric chest wall rise Respiratory Respiratory exam: Present normal lung sounds bilaterally and other (Saturating in the mid 90s on room air); Absent respiratory distress, wheezes or stridor Cardiovascular Cardiovascular exam: Present regular rate and normal rhythm Abdominal Exam Abdominal exam: Present soft; Absent distention or tenderness Extremities Exam Extremities exam: Present full ROM; Absent edema Neurological Exam Neurological exam: Present alert and oriented X3; Absent motor sensory deficit Psychiatric Psychiatric exam: Present normal affect and normal mood Skin Skin exam: Present warm and dry Medical Decision Making Medical Records Medical records reviewed: Yes I reviewed the patient's medical records. Screening: Per USPSTF and CDC recommendations, given the prevalence of disease in our region, it is our hospital?s policy to screen for HIV and viral Hepatitis for all patients aged 18 and over and those with ongoing risk factors. MR Comment: Patient was treated in the ER a few hours prior to arrival for COPD exacerbation including nebulizer, prednisone, and is on outpatient antibiotics Scott Inquiry Pt receiving controlled substance: No Reference #:: 84-year-old female Vital Signs: 08/18/25 00:29 08/18/25 00:30 08/18/25 01:01 Temperature 98.1 F Temperature Source Oral Pulse Rate 96 H 93 H Pulse Rate [Radial] 98 H Respiratory Rate 24 22 16 Blood Pressure 157/83 H 159/53 H Blood Pressure [Right Arm] 155/72 H Blood Pressure Mean [Right Arm] 99 Blood Pressure Position [Right Arm] Sitting 02 Sat by Pulse Oximetry 96 95 97 Oxygen Delivery Method Room Air Nasal Cannula Oxygen Flow Rate (LPM) 3 08/18/25 01:30 08/18/25 02:00 08/18/25 03:00 Temperature Temperature Source Pulse Rate 88 86 87 Pulse Rate [Radial] Respiratory Rate 20 24 20 Blood Pressure 147/79 H 142/68 H 151/74 H Blood Pressure [Right Arm] Blood Pressure Mean [Right Arm] Blood Pressure Position [Right Arm] 02 Sat by Pulse Oximetry 97 94 L 93 L Oxygen Delivery Method Oxygen Flow Rate (LPM) 08/18/25 03:30 08/18/25 04:00 Temperature Temperature Source Pulse Rate 84 85 Pulse Rate [Radial] Respiratory Rate 23 18 Blood Pressure 147/70 H 143/68 H Blood Pressure [Right Arm] Blood Pressure Mean [Right Arm] Blood Pressure Position [Right Arm] 02 Sat by Pulse Oximetry 94 L 96 Oxygen Delivery Method Oxygen Flow Rate (LPM) Lab Data Lab Results 08/18/25 00:42: WBC 10.5, RBC 4.53, Hgb 13.4, Hct 41.7, MCV 92.1, MCH 29.6, MCHC 32.1, RDW 15.7, Plt Count 234, MPV 10.0, Neut % (Auto) 85.5 H, Lymph % (Auto) 7.3 L, [place] % (Auto) 5.9, Eos % (Auto) 0.3, Baso % (Auto) 0.5, Neut # (Auto) 8.9 H, Lymph # (Auto) 0.8, [place] # (Auto) 0.6, Eos # (Auto) 0.0, Baso # (Auto) 0.1, VBG pH 7.37, VBG pCO2 39.6, VBG pO2 40.3 H, VBG HCO3 22.5 L, VBG Total CO2 23.7, VBG O2 Saturation 75.8 H, VBG Base Excess -2.7 L, VBG Lactic Acid 4.0 H, Sodium 138, Potassium 3.4 L, Chloride 103, Carbon Dioxide 22, Anion Gap 16.4 H, BUN 12, Creatinine 0.90, Estimated Creat Clear 45, Estimated GFR 60, Est GFR ( Amer) 73, Glucose 228 H D, Hemoglobin A1c 5.8, Calcium 8.8, Total Bilirubin 0.5, AST 30, ALT 24 D, Alkaline Phosphatase 81, Troponin I < 0.01, Total Protein 6.4, Albumin 3.8, Globulin 2.6, Albumin/Globulin Ratio 1.5, Acetone Level None detected 08/18/25 03:40: Troponin I 0.05 H 08/18/25 03:57: Lactate 4.7 H 08/18/25 00:42 08/18/25 00:42 Orders (Tests/Meds): ED MEDICATIONS Generic Name Dose Route Start Last Admin Trade Name Gamaliel PRN Reason Stop Dose Admin Enoxaparin Sodium 65 mg 08/18/25 04:30 Enoxaparin 100mg/Ml Syringe 1 mg/kg (65 mg) 09/17/25 04:29 SUBCUT Q12H CHIP Discontinued Medications Generic Name Dose Route Start Last Admin Trade Name Paulinoq PRN Reason Stop Dose Admin Aspirin 324 mg 08/18/25 00:33 08/18/25 00:55 Aspirin 81mg Chewable Tablet PO 08/18/25 00:34 324 mg ONCE ONE Administration Lactated Ringer's 1,000 mls @ 999 mls/hr 08/18/25 01:39 08/18/25 03:58 Lactated Ringer's 1000 Ml Bag IV 08/18/25 02:39 Infused .Q1H1M ONE Infusion ORDERS Category Date Time Status CXR --portable [XR chest portable] Stat Exams 08/18/25 00:34 Completed Acetone, Serum (Rapid) Stat Lab 08/18/25 00:42 Completed Complete Blood Count Auto Diff Stat Lab 08/18/25 00:42 Completed Comprehensive Metabolic Panel Stat Lab 08/18/25 00:42 Completed Hemoglobin A1C Stat Lab 08/18/25 00:42 Completed Lactic Acid Stat Lab 08/18/25 03:57 Completed Troponin I Q3H Lab 08/18/25 03:40 Completed Troponin I Q3H Lab 08/18/25 06:45 Ordered Troponin I Stat Lab 08/18/25 00:42 Completed Venous Blood Gas Stat RT 08/18/25 00:42 Completed Medical Decision Narrative: In summary, this 84-year-old female with history of CAD, COPD, CKD presents to the emergency department today with concerns that her heart rate on her pulse ox at home was elevated and she is having slight pain near her right ear which is similar to pain she had when she had an GA in the past. On initial evaluation patient is hemodynamically stable, afebrile, heart rate in the 90s, saturating in the mid 90s on room air, appears to be in sinus rhythm, no tenderness, swelling, redness, or other abnormality of the area around the right ear or in the right ear, tympanic membrane normal, normal neck, cardiopulmonary exam is benign, remainder of exam benign. Differential diagnosis includes but is not limited to medication side effect which I believe is the most likely cause of her heart rate being somewhat elevated since she has received steroids and beta agonists, I also think patient has an element of medical anxiety which is likely contributing. I did also discuss at length the possibility that her pulse ox at home does not work well since she has come to the ER twice tonight and each time reported significantly different findings on her pulse ox at home than what we have found in the ER and each time she has stated that the pulse ox just flashed that abnormal reading very briefly before showing numbers similar to what we have in the ER. I considered arrhythmia, electrolyte abnormality, I did consider ACS since patient is describing the pain near her ear being similar to when she had an GA in the past. Based on these concerns, I ordered hematologic and serum labs, EKG, chest x-ray, cardiac workup, VBG. ECG personally interpreted demonstrates normal sinus rhythm, rate 82, normal WI and QTc, no STEMI. Patient received aspirin for treatment. Labs personally reviewed demonstrate no leukocytosis or anemia, she has had some changes in the differential on her CBC but these are nonactionable at this time, VBG with pH 7.37, no hypercarbia, patient does have elevated lactic on VBG at 4.0, and is now hyperglycemic. She is receiving IV fluids. Anion gap is slightly elevated consistent with mildly elevated lactic. Acetone and A1c added to workup. Initial troponin undetectably low less than 0.01 consistent with the troponin that was completed when the patient was here earlier. Because of her onset of symptoms serial troponin is indicated. She was placed in the ED observation at 0200 for serial troponins to rule out evolving GA and preclude unnecessary admission though at this time on reassessment she is asymptomatic and resting comfortably with no symptoms. Her heart rate is also down to the 80s. Chest x-ray personally interpreted does not demonstrate acute intrathoracic abnormality, see radiology read for final interpretation. On further reassessment patient remains asymptomatic resting comfortably with normal heart rate. She continues to be on the monitor technician and has not showed any concerning changes in her vitals. Breathing comfortably. Repeat lactic and repeat troponin were sent. Repeat lactic is actually slightly increased despite receiving IV fluids, her troponin has also increased to 0.05. With these findings I reach out to Dr. Brown and discussed this case with him including the lab abnormalities, increased troponin, and we discussed the patient's EKG. He agrees that it is nonischemic appearing but does recommend twice daily Lovenox and admission to the hospital for continued troponin monitoring and consideration of cardiac cath if she becomes symptomatic again. I believe this is a reasonable plan and patient is agreeable to this. Lovenox ordered. I discussed this case with the hospitalist who graciously accepted the patient for admission. She was admitted in stable condition. Total time in ED observation: 2 hours 40 minutes Critical Care Critical Care Time Critical Care Time: No
[2025-08-18 02:55] LABS: Acetone, Serum (Rapid) None Detected (None Detect)
[2025-08-18 03:41] LABS: Hemoglobin A1C 5.8 % (4.0-6.0)
--- NOTE | 2025-08-18 03:59 | PC.NURSE ---
Fluids complete, repeat lactic acid drawn and sent to the lab
[2025-08-18 04:08] LABS: Troponin I 0.05 ng/ml (0.00-0.034)
[2025-08-18 04:51] LABS: Reflex Lactic Add Lactic Reflex
--- NOTE | 2025-08-18 04:53 | PC.NURSE ---
report given to Mao ALEJANDRO
--- NOTE | 2025-08-18 05:04 | P.HP_ITS ---
<Statement entered by Rancho Ramon MD - 08/18/25 18:38> Personally evaluated patient and agree with plan of care as outlined by the CHRISTIAN EDUCATION DIRECTOR below. For NSTEMI, patient does not have chest pain or shortness of breath. Sitting in bed comfortably without acute distress. Also making laps around the hallways without symptoms. However, troponin uptrend from 0.05-0.17 this afternoon. Reached out to [facility] advised this is likely from COPD/lung disease versus true ACS. Patient has a history of CAD with 3 stents in 2016 at . They will reconsider if patient has symptoms or persistent troponinemia. Troponin did bump to 0.28 this afternoon, but patient is very comfortable without distress or symptoms. Follow-up troponin in the morning, if continues t o uptrend will transfer to [facility]. History of Present Illness *Admission Date: 08/18/25 *Reason for visit:: Elevated heart rate *History of present illness: This is an 84-year-old female who has a past medical history significant for disease, CT, and COPD who presents with a chief complaint of high heart rate. Due to patient's symptoms, she presented to the emergency room for evaluation. While in the emergency room, EKG revealed a normal sinus rhythm, normal QTc, left axis shift, and no evidence of STEMI. Patient's chest x-ray was negative for any acute cardiopulmonary process. Patient's initial troponin was normal and repeat troponin was 0.05. Case was discussed with on- call doughmaker who recommended admission and if she became symptomatic he would consider catheterization. Due to these recommendations, patient has been admitted for further management. During my evaluation of the patient, patient states she was able evaluated earlier in the emergency room and was diagnosed with COPD exacerbation. She was given nebulizer treatments and steroids. She states when she got home her heart rate was between 99 and 102. She voices that there was 1 episode where it dropped down to the 30s, so she Re-presented to the emergency room for evaluation. She does endorse having a prior CT in April 2016. She states she received 3 cardiac stents. She states that she had her intervention performed in [place] this is also where her marketing analytics specialist is located. She states her doughmaker recently performed a provocative workup on her in the past year or so. No left heart cath was recommended. She reports that her marketing analytics specialist has her scheduled for an updated pulmonary functions test in September. On further questioning, patient states that if she is requiring any coronary artery intervention that she would like to go to her primary doughmaker. She does say she is okay staying here and having her troponin monitor. Currently, she is denying any chest pain, lightheadedness, dizziness, fever, chills, rigors, nausea, vomiting, PND, orthopnea, ripping sensation in his chest, diarrhea. Additional pertinent vitals obtained including neutrophils 85.5%, potassium of 3.4, blood glucose of 228, venous lactic acid of 4.7, and troponin 0.05. Patient did complain of some pain behind her right ear. She reports with her previous myocardial infarction she had pain behind bilateral ears. Her pain was resolved during my evaluation. It is also worth mentioning that patient has never smoked in the past. [facility] Disclaimer: The information contained in this section may have been updated after the patient was seen, as this information can be updated by other users. Social History Smoking Status: Never smoker alcohol intake: never current occupational status: retired Travel in the last 8 weeks?: Inside the [place] housing: house caffeine: No Have you lived/traveled outside US in past 30 days?: No Contact w/someone who lives/traveled outside US past 30 days?: No Exposure to someone with infectious disease in past 14 days?: No Do you have a fever (greater than 100.4 F or 38 C)?: No Have you tested positive for COVID-19?: No Exposed to someone with COVID-19 in past 14 days?: No Do you have a sore throat?: No Do you have a cough?: No Do you have any weakness?: No Do you have any diarrhea?: No Are you experiencing any unusual bleeding?: No Do you have any muscle aches/pain?: No Do you have any abdominal pain?: No Are you experiencing loss of taste or smell?: No Other Medical History Have you received the Pneumonia Vaccine: Yes Review of Systems Review of Systems Review of systems:: pertinent systems reviewed and negative unless documented below Constitutional Constitutional: Reports system reviewed and no additional complaints, except as documented Eyes Eyes: Reports system reviewed and no additional complaints, except as documented ENT Ears, Nose, Mouth, and Throat: Reports system reviewed and no additional complaints, except as documented *Cardiovascular Cardiovascular: Reports dyspnea and Reports palpitations *Respiratory Respiratory: Reports dyspnea *Gastrointestinal Gastrointestinal: Reports system reviewed and no additional complaints, except as documented *Genitourinary Genitourinary: Reports system reviewed and no additional complaints, except as documented *Musculoskeletal Musculoskeletal: Reports system reviewed and no additional complaints, except as documented Integumentary/Breasts Skin/Breast: Reports system reviewed and no additional complaints, except as documented *Neurologic Neurologic: Reports system reviewed and no additional complaints, except as documented Psychiatric Psychiatric: Reports system reviewed and no additional complaints, except as documented Endocrine Endocrine: Reports palpitations Hematologic/Lymphatic Hematologic/Lymphatic: Reports system reviewed and no additional complaints, except as documented Allergic/Immunologic Allergic/Immunologic: Reports system reviewed and no additional complaints, except as documented Meds Home Medications and Allergies Home Medications ?Medication ?Instructions ?Recorded ?Confirmed ?Type albuterol sulfate 90 mcg/actuation 1 - 2 puffs inhalat ion Q4-6H PRN 10/12/18 08/17/25 History aerosol inhaler (Ventolin HFA) Shortness Of Breath Or Wheezing isosorbide mononitrate 30 mg 30 mg PO DAILY Heart dise ase 10/12/18 08/17/25 History tablet,extended release 24 hr aspirin 81 mg tablet,delayed 1 tab PO DAILY thinner 08/17/25 History release (Aspir-) rosuvastatin 40 mg tablet 40 mg PO DAILY . 05/01/23 History tiotropium 2.5 mcg-olodaterol 2.5 2 puff inhalation DA TYLER COPD 05/01/23 08/17/25 History mcg/actuation mist for inhalation (Stiolto Respimat) ergocalciferol (vitamin D2) 1,250 1,250 mcg PO DIRE CTED 06/26/24 08/17/25 History mcg (50,000 unit) capsule naproxen sodium 550 mg tablet 550 mg PO BID PRN pain # 60 tabs 12/26/24 08/17/25 Rx tizanidine 2 mg tablet 2 mg PO TID PRN muscle spast icity 02/14/25 08/17/25 Rx #30 tabs fluticasone furoate 100 1 inh inhalation DAILY 04/2508/17/25 History mcg/actuation blister powder for inhalation (Arnuity Ellipta) levofloxacin 500 mg tablet 500 mg PO DAILY #7 tabs 07/0208/17/25 Rx levothyroxine 75 mcg tablet 75 mcg PO DAILY 08/17/25 1 History (Synthroid) prednisone 20 mg tablet 40 mg (2 x 20 mg) PO DAILY 5 days 08/17/25 Rx #10 tabs New Prescriptions to Start Prescriptions: Allergies Allergy/AdvReac Type Severity Reaction Status Date / Time propoxyphene Allergy Unknown Rash Verified 08/15/25 12:45 doxycycline Allergy Rash Verified 08/15/25 12:45 tetracycline Allergy Rash Verified 08/15/25 12:45 Exam Data for Last 24 hours Vital signs and Labs for Last 24 Hours: Temp Pulse Resp BP Pulse Ox O2 Del Method 98.1 F 86 22 148/66 H 96 Room Air 08/18/25 04:46 08/18/25 04:46 08/18/25 04:46 08/18/25 04:46 08/18/25 04:00 08/18/25 04:46 Laboratory Results - last 24 hr 08/18/25 00:42: WBC 10.5, RBC 4.53, Hgb 13.4, Hct 41.7, MCV 92.1, MCH 29.6, MCHC 32.1, RDW 15.7, Plt Count 234, MPV 10.0, Neut % (Auto) 85.5 H, Lymph % (Auto) 7.3 L, [place] % (Auto) 5.9, Eos % (Auto) 0.3, Baso % (Auto) 0.5, Neut # (Auto) 8.9 H, Lymph # (Auto) 0.8, [place] # (Auto) 0.6, Eos # (Auto) 0.0, Baso # (Auto) 0.1, VBG pH 7.37, VBG pCO2 39.6, VBG pO2 40.3 H, VBG HCO3 22.5 L, VBG Total CO2 23.7, VBG O2 Saturation 75.8 H, VBG Base Excess -2.7 L, VBG Lactic Acid 4.0 H, Sodium 138, Potassium 3.4 L, Chloride 103, Carbon Dioxide 22, Anion Gap 16.4 H, BUN 12, Creatinine 0.90, Estimated Creat Clear 45, Estimated GFR 60, Est GFR ( Amer) 73, Glucose 228 H D, Hemoglobin A1c 5.8, Calcium 8.8, Total Bilirubin 0.5, AST 30, ALT 24 D, Alkaline Phosphatase 81, Troponin I < 0.01, Total Protein 6.4, Albumin 3.8, Globulin 2.6, Albumin/Globulin Ratio 1.5, Acetone Level None detected 08/18/25 03:40: Troponin I 0.05 H 08/18/25 03:57: Lactate 4.7 H I & O for Last 24 hours: Intake & Output 08/15/25 08/16/25 08/17/25 08/18/25 23:59 23:59 23:59 23:59 Intake Total 1000 / 1000 Balance 1000 / 1000 Weight 65.317 kg Constitutional Constitutional: no acute distress, thin and cooperative *Routine HEENT Exam Head: Present normocephalic and atraumatic Eye: Present EOMI and PERRL ENT: Present mucous membranes moist *Routine Neck Exam Neck: Present supple, full ROM and trachea midline *Routine Respiratory Exam Respiratory: Present CTA bilaterally, normal respiratory effort, able to speak in complete sentences and symmetric chest movement *Routine Cardiovascular Exam Cardiovascular: Present RRR, Normal S1 and Normal S2 *Routine Abdominal Exam Abdominal: Present soft and normoactive bowel sounds *Routine Rectal Exam Rectal:: deferred *Routine Genitalia Exam Genitalia:: deferred *Routine Extremities Exam Extremities: Present full ROM, pulses intact and normal capillary refill Routine Back/Spine/Pelvis Exam Back/Spine: Present full ROM *Routine Skin Exam Skin: Present intact, dry, warm and normal turgor *Routine Neurological Exam Neurological: Present alert, oriented X3, CN II-XII intact, moving all extremities and normal speech Routine Psychiatric Exam Psychiatric: Present normal affect, normal thought process, cooperative, good insight and good judgment H&P: Result Impressions 84-year-old female who has known prior CT presents with complaints of elevated heart rate and pain behind her right ear. Troponins are currently upward trending. Case was discussed with cardiology who recommended trending troponins and given patient weight-based Lovenox twice daily. Cards also voices willingness to perform left heart catheter patient does have symptoms Assessment and Plan *Assessment and plan (1) Non-ST elevation CT (NSTEMI): Status: Acute Category: Medical Code(s): I21.4 - Non-ST elevation (NSTEMI) myocardial infarction (2) Elevated troponin: Status: Acute Category: Medical Code(s): R79.89 - Other specified abnormal findings of blood chemistry (3) Lactic acidosis: Status: Acute Category: Medical Code(s): E87.20 - Acidosis, unspecified (4) Hyperglycemia: Status: Acute Category: Medical Code(s): R73.9 - Hyperglycemia, unspecified Plan Assessment: Possible NSTEMI Elevated troponin - Will continue to trend troponins - Will keep patient n.p.o. until evaluated by cardiology - Patient is voicing willingness to stay for troponin trending but would rather have her primary doughmaker performing a left heart cath. - She also was refusing 2D echo. I have still ordered 2D echo and if patient decides to refuse that is within her right; however, encouraged patient to be compliant with therapy to help us better evaluate the heart -consult cardiology -Obtain D-dimer Lactic acidosis -Venous lactic acid -Normal saline at 100 mL an hour Hyperglycemia - Patient has no history of diabetes - This may be due to exogenous glucocorticosteroids -Will obtain fasting labs if patient is here in the a.m. -Will consider A1c Plan: Admit patient to the MedSurg unit in observation status Activity as tolerated Vital signs every 4 hours Keep patient n.p.o. for now CBC/BMP daily Patient did receive full-strength aspirin while in emergency room Weight-based Lovenox twice daily 5 mg Lagro p.o. every 4 hours as needed moderate pain 2 mg morphine IV push every 4 hours as needed severe pain Full code All discussed this case with attending physician Dr. Ramon and I look forward to more input
[2025-08-18] MEDS: 0.9 % SODIUM CHLORIDE 1000ML 1,000 ML 100 ML IV (05:43)
--- NOTE | 2025-08-18 06:05 | PC.NURSE ---
Pt arrived to the floor from ED at 0509
[2025-08-18 07:00] LABS: Lactic Acid Follow Up (RFLX 1) 3.2 mmol/L (0.7-2.1)
[2025-08-18 07:03] LABS: D-Dimer 0.90 ug/mL (0.0-0.5)
[2025-08-18 07:11] LABS: Troponin I 0.07 ng/ml (0.00-0.034)
[2025-08-18 08:45] LABS: Reflex Lactic (2 hrs) Add Lactic Reflex
[2025-08-18 08:57] LABS: Cholesterol 95 mg/dl (140-200); HDL Cholesterol 55 mg/dl (40-60); Triglycerides 49 mg/dl (30-150)
[2025-08-18 09:28] LABS: Thyroid Stimulating Hormone 3.58 uIU/mL (0.465-4.68)
[2025-08-18] MEDS: ASPIRIN EC 81MG TABLET 81 MG PO (09:54)
--- NOTE | 2025-08-18 09:59 | HMH.PHAINT1 ---
Pharmacy Intervention Comments: MEDICATION RECONCILIATION COMPLETE USING EXTERNAL PHARMACY FILL HISTORY AND RECENT MD OFFICE VISIT NOTE.
[2025-08-18 12:08] LABS: Lactic Acid Follow up (RFLX 2) 2.2 mmol/L (0.7-2.1)
[2025-08-18 12:20] LABS: Troponin I 0.18 ng/ml (0.00-0.034)
[2025-08-18] MEDS: ISOSORBIDE MONO 30MG TAB.ER.24H 30 MG PO (14:38)
[2025-08-18 17:24] LABS: Troponin I 0.28 ng/ml (0.00-0.034)
[2025-08-18 18:14] LABS: Adenovirus,PCR Not Detected (NotDetected); Chlamydophila Pneumoniae, PCR Not Detected (NotDetected); Coronavirus 19, PCR Not Detected (NotDetected); Coronovirus HKU1,PCR Not Detected (NotDetected); Influenza A, PCR Not Detected (NotDetected); Influenza AH1, 2009 Not Detected (NotDetected); Influenza AH1, PCR Not Detected (NotDetected); Influenza AH3,PCR Not Detected (NotDetected); Influenza B, PCR Not Detected (NotDetected); Mycoplasma Pneumoniae, PCR Not Detected (NotDetected); Parainfluenza 1, PCR Not Detected (NotDetected); Parainfluenza 2, PCR Not Detected (NotDetected); Parainfluenza 3, PCR Not Detected (NotDetected); Parainfluenza 4, PCR Not Detected (NotDetected)
--- NOTE | 2025-08-18 20:06 | P.DS_ITS ---
<Statement entered by Rancho Ramon MD - 08/21/25 12:39> Agree with the plan of care as outlined by the NUCLEAR AUXILIARY OPERATOR below. General Admission date:: 08/18/25 Discharge date: 08/18/25 HPI HPI HPI: This is an 84-year-old female who has a past medical history significant for disease, NM, and COPD who presents with a chief complaint of high heart rate. Due to patient's symptoms, she presented to the emergency room for evaluation. While in the emergency room, EKG revealed a normal sinus rhythm, normal QTc, left axis shift, and no evidence of STEMI. Patient's chest x-ray was negative for any acute cardiopulmonary process. Patient's initial troponin was normal and repeat troponin was 0.05. Case was discussed with on- call outpatient program coordinator who recommended admission and if she became symptomatic he would consider catheterization. Due to these recommendations, patient has been admitted for further management. During my evaluation of the patient, patient states she was able evaluated earlier in the emergency room and was diagnosed with COPD exacerbation. She was given nebulizer treatments and steroids. She states when she got home her heart rate was between 99 and 102. She voices that there was 1 episode where it dropped down to the 30s, so she Re-presented to the emergency room for evaluation. She does endorse having a prior NM in April 2016. She states she received 3 cardiac stents. She states that she had her intervention performed in [place] this is also where her physician/internist is located. She states her outpatient program coordinator recently performed a provocative workup on her in the past year or so. No left heart cath was recommended. She reports that her physician/internist has her scheduled for an updated pulmonary functions test in September. On further questioning, patient states that if she is requiring any coronary artery intervention that she would like to go to her primary outpatient program coordinator. She does say she is okay staying here and having her troponin monitor. Currently, she is denying any chest pain, lightheadedness, dizziness, fever, chills, rigors, nausea, vomiting, PND, orthopnea, ripping sensation in his chest, diarrhea. Additional pertinent vitals obtained including neutrophils 85.5%, potassium of 3.4, blood glucose of 228, venous lactic acid of 4.7, and troponin 0.05. Patient did complain of some pain behind her right ear. She reports with her previous myocardial infarction she had pain behind bilateral ears. Her pain was resolved during my evaluation. It is also worth mentioning that patient has never smoked in the past. 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 Patient was noted to have COPD exacerbation treatment earlier in the day and then Tai presented back to the emergency department with tachycardia. She initially was admitted for observation secondary to increased troponins. She reported 3 cardiac stents as well as a recent provocative workup where no LHC was recommended. She also reports pulmon ology following with [place] and states that she is set to have repeat pulmonary function test in September. During hospitalization she requested that if any cardiac intervention should be required that she would only want intervention at [facility] in [place]. At the time of her AMA/discharge she was noted to have troponin of 0.28 up from 0.18. At the time of my discussion with her she was resting comfortably with heart rate in the 80s. In no distress. States that she feels inclined to sign out AMA and that she does not want to wait for morning labs to make decisions on being discharged or transferred. Informed her that elevated troponins can be a warning sign for increased risk of sudden cardiac . She is of sound mind and understands her risks. Spoke with her for approximately 20 minutes regarding her testing and plan of care including possible transfer in the a.m. if cardiac enzymes continue to rise. Patient states that she would prefer to go home and make a decision to go to [facility] herself if she feels the need for further cardiac testing. is at bedside and corroborates patient's wishes. At the time of my exam she is pain-free and in no distress and able to make her own decisions. At the request of the patient, current documentation and labs were printed for her benefit after signing release of info. Exam Data for Last 24 hours Vital signs and Labs for Last 24 Hours: Temp Pulse Resp BP Pulse Ox O2 Del Method 97.8 F 86 16 162/85 H 96 Room Air 08/18/25 16:00 08/18/25 16:00 08/18/25 16:00 08/18/25 16:00 08/18/25 16:00 08/18/25 19:00 Laboratory Results - last 24 hr 08/18/25 00:42: WBC 10.5, RBC 4.53, Hgb 13.4, Hct 41.7, MCV 92.1, MCH 29.6, MCHC 32.1, RDW 15.7, Plt Count 234, MPV 10.0, Neut % (Auto) 85.5 H, Lymph % (Auto) 7.3 L, [place] % (Auto) 5.9, Eos % (Auto) 0.3, Baso % (Auto) 0.5, Neut # (Auto) 8.9 H, Lymph # (Auto) 0.8, [place] # (Auto) 0.6, Eos # (Auto) 0.0, Baso # (Auto) 0.1, VBG pH 7.37, VBG pCO2 39.6, VBG pO2 40.3 H, VBG HCO3 22.5 L, VBG Total CO2 23.7, VBG O2 Saturation 75.8 H, VBG Base Excess -2.7 L, VBG Lactic Acid 4.0 H, Sodium 138, Potassium 3.4 L, Chloride 103, Carbon Dioxide 22, Anion Gap 16.4 H, BUN 12, Creatinine 0.90, Estimated Creat Clear 45, Estimated GFR 60, Est GFR ( Amer) 73, Glucose 228 H D, Hemoglobin A1c 5.8, Calcium 8.8, Total Bilirubin 0.5, AST 30, ALT 24 D, Alkaline Phosphatase 81, Troponin I < 0.01, Total Protein 6.4, Albumin 3.8, Globulin 2.6, Albumin/Globulin Ratio 1.5, Acetone Level None detected 08/18/25 03:40: Troponin I 0.05 H 08/18/25 03:57: Lactate 4.7 H 08/18/25 06:35: D-Dimer 0.90 H, Lactate 3.2 H, Troponin I 0.07 H, Triglycerides 49, Cholesterol 95 L, LDL Cholesterol Direct < 30.00 L, VLDL Cholesterol 10, HDL Cholesterol 55, Cholesterol/HDL Ratio 1.7, TSH 3.58 08/18/25 11:52: Lactate 2.2 H, Troponin I 0.18 H 08/18/25 16:45: Troponin I 0.28 H I & O for Last 24 hours: Intake & Output 08/15/25 08/16/25 08/17/25 08/18/25 23:59 23:59 23:59 23:59 Intake Total 2700 / 2700 Output Total 1300 / 1300 Balance 1400 / 1400 Weight 66.814 kg Constitutional Constitutional: no acute distress *Routine HEENT Exam Head: Present normocephalic Eye: Present EOMI and PERRL ENT: Present mucous membranes moist *Routine Neck Exam Neck: Present supple; Absent lymphadenopathy *Routine Respiratory Exam Respiratory: Present CTA bilaterally *Routine Cardiovascular Exam Cardiovascular: Present RRR *Routine Abdominal Exam Abdominal: Present soft and normoactive bowel sounds; Absent tenderness *Routine Extremities Exam Extremities: Absent cyanosis, clubbing or edema *Routine Skin Exam Skin: Present warm; Absent rash *Routine Neurological Exam Neurological: Present alert and oriented X3 Results Data Completed and Pending Labs on day of discharge: Labs from last 24 hours 08/18/25 08/18/25 08/18/25 16:45 11:52 06:35 WBC RBC Hgb Hct MCV MCH MCHC RDW Plt Count MPV Neut % (Auto) Lymph % (Auto) [place] % (Auto) Eos % (Auto) Baso % (Auto) Neut # (Auto) Lymph # (Auto) [place] # (Auto) Eos # (Auto) Baso # (Auto) D-Dimer 0.90 H VBG pH VBG pCO2 VBG pO2 VBG HCO3 VBG Total CO2 VBG O2 Saturation VBG Base Excess VBG Lactic Acid Sodium Potassium Chloride Carbon Dioxide Anion Gap BUN Creatinine Estimated Creat Clear Estimated GFR Est GFR ( Amer) Glucose Hemoglobin A1c Lactate 2.2 H 3.2 H Calcium Total Bilirubin AST ALT Alkaline Phosphatase Troponin I 0.28 H 0.18 H 0.07 H Total Protein Albumin Globulin Albumin/Globulin Ratio Triglycerides 49 Cholesterol 95 L LDL Cholesterol Direct < 30.00 L VLDL Cholesterol 10 HDL Cholesterol 55 Cholesterol/HDL Ratio 1.7 TSH 3.58 Acetone Level 08/18/25 08/18/25 08/18/25 03:57 03:40 00:42 WBC 10.5 RBC 4.53 Hgb 13.4 Hct 41.7 MCV 92.1 MCH 29.6 MCHC 32.1 RDW 15.7 Plt Count 234 MPV 10.0 Neut % (Auto) 85.5 H Lymph % (Auto) 7.3 L [place] % (Auto) 5.9 Eos % (Auto) 0.3 Baso % (Auto) 0.5 Neut # (Auto) 8.9 H Lymph # (Auto) 0.8 [place] # (Auto) 0.6 Eos # (Auto) 0.0 Baso # (Auto) 0.1 D-Dimer VBG pH 7.37 VBG pCO2 39.6 VBG pO2 40.3 H VBG HCO3 22.5 L VBG Total CO2 23.7 VBG O2 Saturation 75.8 H VBG Base Excess -2.7 L VBG Lactic Acid 4.0 H Sodium 138 Potassium 3.4 L Chloride 103 Carbon Dioxide 22 Anion Gap 16.4 H BUN 12 Creatinine 0.90 Estimated Creat Clear 45 Estimated GFR 60 Est GFR ( Amer) 73 Glucose 228 H D Hemoglobin A1c 5.8 Lactate 4.7 H Calcium 8.8 Total Bilirubin 0.5 AST 30 ALT 24 D Alkaline Phosphatase 81 Troponin I 0.05 H < 0.01 Total Protein 6.4 Albumin 3.8 Globulin 2.6 Albumin/Globulin Ratio 1.5 Triglycerides Cholesterol LDL Cholesterol Direct VLDL Cholesterol HDL Cholesterol Cholesterol/HDL Ratio TSH Acetone Level None detected DS: Diagnosis Discharge Diagnosis (1) Non-ST elevation NM (NSTEMI): Status: Acute Code(s): I21.4 - Non-ST elevation (NSTEMI) myocardial infarction (2) Elevated troponin: Status: Acute Code(s): R79.89 - Other specified abnormal findings of blood chemistry (3) Lactic acidosis: Status: Acute Code(s): E87.20 - Acidosis, unspecified (4) Hyperglycemia: Status: Acute Code(s): R73.9 - Hyperglycemia, unspecified Meds Home Medications and Allergies Home Medications ?Medication ?Instructions ?Recorded ?Confirmed ?Type albuterol sulfate 90 mcg/actuation 2 puffs inhalation Q4HP PRN 10/12/18 08/18/25 History aerosol inhaler (Ventolin HFA) Shortness Of Breath Or Wheezing isosorbide mononitrate 30 mg 30 mg PO DAILY 10/12/18 1 History tablet,extended release 24 hr aspirin 81 mg tablet,delayed 1 tab PO DAILY 10/14/18 1 History release (Aspir-) rosuvastatin 40 mg tablet 40 mg PO HS 05/01/23 5 History tiotropium 2.5 mcg-olodaterol 2.5 2 puff inhalation DA TYLER COPD 05/01/23 08/18/25 History mcg/actuation mist for inhalation (Stiolto Respimat) ergocalciferol (vitamin D2) 1,250 1,250 mcg PO QOW 08/18/25 History mcg (50,000 unit) capsule levofloxacin 500 mg tablet 500 mg PO DAILY #7 tabs 07/0208/18/25 Rx levothyroxine 75 mcg tablet 75 mcg PO DAILYDM 08/17/25 08/18/25 History (Synthroid) fluticasone furoate 200 1 inh inhalation DAILY 08/1808/18/25 History mcg/actuation blister powder for inhalation naproxen sodium 550 mg tablet 550 mg PO BIDP PRN Mild Pain 08/18/25 08/18/25 History (Scale Score 1-4) tizanidine 2 mg tablet 2 mg PO TIDP PRN muscle spas ticity 08/18/25 08/18/25 History New Prescriptions to Start Prescriptions: Allergies Allergy/AdvReac Type Severity Reaction Status Date / Time propoxyphene Allergy Unknown Rash Verified 08/15/25 12:45 doxycycline Allergy Rash Verified 08/15/25 12:45 tetracycline Allergy Rash Verified 08/15/25 12:45 Discharge Plan Disposition Patient Disposition: Left Against Medical Advice Condition: Good Patient Discharge Instructions Print Language: Vietnamese Providers Admit Provider: Rancho Ramon Attending Provider: Rancho Ramon
--- NOTE | 2025-08-18 20:16 | PC.NURSE ---
Patient left floor with staff for home at 20:16.
--- NOTE | 2025-08-18 20:49 | PC.NURSE ---
Pt expressed that she would like to leave AMA. Hospitalist was notified and talked with pt at bedside. Pt decided she would still like to leave. AMA form was brought in and signed. IV taken out. Pt left floor at 2015.
== END 2025-08-18 20:16 | disposition left against medical advice (07) ==
LOC: ER 04:37 → 2ND 04:43
PROVIDERS: Nurse Practitioner Family; Admitting Provider Student in an Organized Health Care Education/Training Program; Emergency Provider Emergency Medicine; PCP Internal Medicine; Visit Provider Student in an Organized Health Care Education/Training Program
DX: I21.4 Non-ST elevation (NSTEMI) myocardial infarction (principal); E87.20 Acidosis, unspecified; I11.9 Hypertensive heart disease without heart failure; J44.1 Chronic obstructive pulmonary disease with (acute) exacerbation; R73.9 Hyperglycemia, unspecified; I25.10 Atherosclerotic heart disease of native coronary artery without angina pectoris; I44.4 Left anterior fascicular block; E78.5 Hyperlipidemia, unspecified; Z95.5 Presence of coronary angioplasty implant and graft; Z88.5 Allergy status to narcotic agent; Z88.1 Allergy status to other antibiotic agents; Z79.899 Other long term (current) drug therapy; Z79.82 Long term (current) use of aspirin; Z79.890 Hormone replacement therapy
CPT/HCPCS: 0223U; 36415; 71045; 80053; 80061; 82009; 82803; 83036; 83605; 84443; 84484; 85025; 85378; 93005; 96360; 96361; 96372; 99285; G0378; J1650; J7030; J7120

== ENCOUNTER 2025-09-05 12:47 | Outpatient (CLI) | payer MEDICARE, OTHER, SELFPAY ==
--- OUTSIDE RECORDS SUMMARY | 2019-12-19 10:42 | XMS_ITS | Encounter Summary ---
[facility] Address [address] [place] [address] Care Team Providers Care Incident Response Manager Name Role Phone Vicente Loyd MD Primary Care Provider [phone] Encounter Details Date Type Department Care Team (Late st Contact Info) Description 12/19/2019 9:42 AM EST Hospital Encounter [facility] PULMONARY & CRITICAL CARE MEDICINE [address] [place] [phone] Social History Tobacco Use Types Packs/Day Years Used Date Smoking Tobacco: Never Passive Smoke Exposure: Never Smokeless Tobacco: Never Alcohol Use Standard Drinks/Week Comments No 0 (1 standard drink = 0.6 oz pur e alcohol) Abuse Screen Answer Date Recorded Feels Unsafe at Home or Work/School no 08/18/2025 Feels Threatened by Someone no 08/08 Does Anyone Try to Keep You From Having Contact with Others or Doing Things Outside Your Home? no 08/18/2025 Physical Signs of Abuse Present no 08/18/2025 Comments No Sex and Gender Information Value Date Recorded Sex Assigned at Not on file Legal Sex Female 1:17 PM EDT Gender Identity Not on file Sexual Orientation Not on file documented as of this encounter Functional Status * Calculated C-SSRS Risk Score (Lifetime/Recent) Answer Date of Assessment Author No Risk Indicated 08/18/2025 9:49 PM EDT Jone Logan, RN * [place] Suicide Severity Rating Scale (Screener/Recent Self-Report) Question Answer Date of Assessment Author 1. Wish to be (Past 1 Month) No 08/18/2025 9:49 PM EDT Jone Gutierrez, RN 2. Non-Specific Active Suici aaron Thoughts (Past 1 Month) No 08/18/2025 9:49 PM EDT Jasmin Gutierrez, RN 6. Suicidal Behavior (Lifetime) No 5 9:49 PM EDT Jone Gutierrez, RN documented as of this encounter Plan of [...] PA AND LATERAL- 12/19/2019 INDICATION: SEE DIAGNOSIS; [id number] COMPARISON: 04/03/2016 FINDINGS: PA and lateral views [...] PA AND LATERAL- 12/19/2019 INDICATION: SEE DIAGNOSIS; [id number] COMPARISON: 04/03/2016 FINDINGS: PA and lateral views [...] out) 04/22/2021 04/23/2021 04/29/2021 9:08 PM EDT Rhinovirus 08/18/2025 08/18/2025 documented as of this encounter Care Teams Incident Response Manager Relationship Specialty Start Date End Date iVcente Loyd MD [address] [facility] [address] [place] [address] PCP - General Internal Medicine 05/14/16 documented as of this encounter
--- OUTSIDE RECORDS SUMMARY | 2022-09-25 10:04 | XMS_ITS | Encounter Summary ---
Author [facility] Address [address] [place] [address] Care Team Providers Care Knitting Tester Name Role Phone Vicente Loyd MD Primary Care Provider [phone] Encounter Details Date Type Department Care Team (Late st Contact Info) Description 09/25/2022 9:04 AM EST Hospital Encounter [facility] PULMONARY & CRITICAL CARE MEDICINE [facility] [place] [phone] Social History Tobacco Use Types Packs/Day [...] 9:49 PM EDT Jone Logan, RN * [place] Suicide Severity Rating Scale (Screener/Recent Self-Report) Question [...] Comments XR CHEST PA AND LATERAL Routine 09/25/2022 9:04 AM EST Moderate COPD (chronic obstructive pulmonary disease) documented in this encounter Results * XR Chest PA & Lateral (09/25/2022 9:04 AM EST) Anatomical Region Laterality Modality Body, Chest N/A Radiographic Genesis ging Narrative 09/25/2022 3:46 PM EST Chest x-ray PA and lateral was performed on this date and compared to prior study of 12/19/2019. Findings: The cardiac silhouette is within normal limits in size. The aorta is tortuous. There is some irregularity/eventration of the right hemidiaphragm anteriorly. Otherwise the diaphragms are flattened and there is hyperinflation consistent with COPD. Interstitial pattern is mildly prominent and there are some small calcified granulomas present. There is some left basilar scarring. There has been no significant change compared to 2019. Impression: No acute cardiopulmonary disease. Chronic findings as described above. Mitchell Paige MD Mitchell Paige MD IMG DIAGNOSTIC IMAGING ORDERABLES Final Result documented in this encounter Visit Diagnoses Not on filedocumented in this encounter Additional Health Concerns Infection Onset Date Last Indicated Resolved Time Rhinovirus 08/18/2025 08/18/2025 documented as of this encounter Care Teams Knitting Tester Relationship Specialty Start Date End Date Vicente Loyd MD [address] [place] [address] [facility] [id number] PCP - General Internal Medicine 05/14/16 documented as of this encounter
--- OUTSIDE RECORDS SUMMARY | 2023-02-26 08:28 | XMS_ITS | Encounter Summary ---
[facility] [address] [place] [address] Care Team Providers Care Collection Team Lead Name Role Phone Vicente Loyd MD Primary Care Provider [phone] Encounter Details Date Type Department Care Team (Late st Contact Info) Description 02/26/2023 8:28 AM EDT Hospital Encounter [facility] PULMON[facility] & CRITICAL CARE MEDICINE [address] [place] [phone] Social History Tobacco Use Types Packs/Day [...] 9:49 PM EDT Jone Logan, RN * [place] Suicide Severity Rating Scale (Screener/Recent Self-Report) Question [...] Comments XR CHEST PA AND LATERAL Routine 02/26/2023 8:29 AM EDT Moderate COPD (chronic obstructive pulmonary disease) documented in this encounter Results * XR Chest PA & Lateral (02/26/2023 8:29 AM EDT) Anatomical Region Laterality Modality Body, Chest N/A Radiographic Genesis ging Narrative 02/26/2023 1:03 PM EDT Chest x-ray PA and lateral was performed on this date and compared to a prior study of 09/25/2022. Findings: The cardiac silhouette is within normal limits in size. The aorta is tortuous. There is mild hyperinflation. The diaphragm shape is somewhat irregular as noted previously. There is mild prominence of the interstitial pattern and some calcified granulomas. There is left basilar scarring. There is scarring/atelectasis in the right middle lobe or the lingula seen on the lateral film as noted previously as well. Impression: No acute cardiopulmonary findings. Chronic findings as above. No significant change control coordinator prior films. Mitchell Paige MD us Mitchell Paige MD IMG DIAGNOSTIC IMAGING ORDERABLES Final Result documented in this encounter Visit Diagnoses Not on filedocumented in this encounter Additional Health Concerns Infection Onset Date Last Indicated Resolved Time Rhinovirus 08/18/2025 08/18/2025 documented as of this encounter Care Teams Collection Team Lead Relationship Specialty Start Date End Date Vicente Loyd MD [address] [place] [facility] [address] [place] [address] PCP - General Internal Medicine 05/14/16 documented as of this encounter
--- OUTSIDE RECORDS SUMMARY | 2024-03-03 09:00 | XMS_ITS | Encounter Summary ---
[facility] [address] [place] [address] Care Team Providers Care Brine Mixer Operator Name Role Phone Vicente Loyd MD Primary Care Provider [phone] Encounter Details Date Type Department Care Team (Late st Contact Info) Description 03/03/2024 9:00 AM EDT Hospital Encounter [facility] PULMONARY & CRITICAL CARE MEDICINE [address] [place] [phone] Social History Tobacco Use Types Packs/Day [...] 9:49 PM EDT Jone Logan, RN * [place] Suicide Severity Rating Scale (Screener/Recent Self-Report) Question Answer Date of Assessment Author 1. Wish to be (Past 1 Month) No 08/18/2025 9:49 PM EDT Jone Gutierrez, RN 2. Non-Specific Active Suici aaron Thoughts (Past 1 Month) No 08/18/2025 9:49 PM EDT Jasmin Gutierrez, RN 6. Suicidal Behavior (Lifetime) No 9:49 PM EDT Jone Gutierrez, RN documented [...] Chronic findings as detailed above. No significant sales and service change leader 2022. Mitchell Paige MD us Mitchell Paige MD IMG DIAGNOSTIC IMAGING ORDERABLES Final Result documented in this encounter Visit Diagnoses Not on filedocumented in this encounter Additional Health Concerns Infection Onset Date Last Indicated Resolved Time Rhinovirus 08/18/2025 08/18/2025 documented as of this encounter Care Teams Brine Mixer Operator Relationship Specialty Start Date End Date Vicente Loyd MD [address] [place] [address] [place] [address] PCP - General Internal Medicine 05/14/16 documented as of this encounter
--- OUTSIDE RECORDS SUMMARY | 2025-08-18 21:56 | XMS_ITS | Encounter Summary ---
Author Organization [facility] Address [address] [place] [address] Care Team Providers Care Mortician Investigator Name Role Phone Vicente Loyd MD Primary Care Provider [phone] Reason for Visit * Reason Comments Shortness of Breath Encounter Details Date Type Department Care Team (Late st Contact Info) Description 08/18/2025 9:56 PM EDT - 08/19/2025 1:54 AM EDT Emergency [facility] [address] [place] [address] Reuben Pratt MD [address] [place] [id number] Bronchitis (Primary Dx); Rhinovirus infection; Stage 3a chronic kidney disease; Primary hypertension; Moderate COPD (chronic obstructive pulmonary disease) Discharge Disposition: Home or Self Care Social History Tobacco Use Types Packs/Day Years [...] on file documented as of this encounter Last Filed Vital Signs Vital Sign Reading Time Taken Comments Blood Pressure 147/91 08/19/2025 1:30 AM EDT Pulse 78 08/19/2025 1:30 AM EDT Temperature 37 C (98.6 F) 08/18/2025 9:47 PM EDT Respiratory Rate 24 08/18/2025 9:47 PM EDT Oxygen Saturation 96% 08/19/2025 1:30 AM EDT Inhaled Oxygen Concentration - - Weight 65.3 kg (144 lb) 08/18/2025 9:47 PM EDT Height 165.1 cm (5' 5 ) 08/18/2025 9:47 PM EDT Body Mass Index 23.96 08/18/2025 9:47 PM EDT documented in this encounter Functional Status * Calculated C-SSRS Risk Score (Lifetime/Recent) Answer Date of Assessment Author No Risk Indicated 08/18/2025 9:49 PM EDT Jone Logan, JAVON * Huntington Suicide Severity Rating Scale (Screener/Recent Self-Report) Question Answer Date of Assessment Author 1. Wish to be (Past 1 Month) No 08/18/2025 9:49 PM EDT Jone Gutierrez RN 2. Non-Specific Active Suici aaron Thoughts (Past 1 Month) No 08/18/2025 9:49 PM EDT Jasmin Gutierrez, RN 6. Suicidal Behavior (Lifetime) No 9:49 PM EDT Jone Gutirerez RN documented as of this encounter Discharge Instructions * Discharge Instructions* Reuben Pratt MD - 08/19/2025 1:40 AM EDT Continue to take medications as directed. Maintain adequate hydration. Use acetaminophen as discussed for pain control. Follow-up with your primary physician or specialist within the next 24 hours. Return to the emergency department for any change in symptoms. * Attachments The following attachments cannot be sent through Care Everywhere. * Acute Bronchitis Adult Iivs-dk-Padn (Tongan) documented in this encounter Medications at Time of Discharge albuterol (PROVENTIL) (2.5 MG/3ML) 0.083% nebulizer solution INHALE 1 VIAL VIA NEBULIZER EVERY 4 HOURS NEEDED FOR WHEEZING 300 mL 3 08/30/2023 albuterol sulfate HFA 108 (90 Base) MCG/ACT inhalerIndication s:Moderate COPD (chronic obstructive pulmonary disease) Inhale 2 puffs Every 4 (Four) Hours As Needed for Wheezing. 18 g 11 03/03/2024 aspirin 81 MG tablet Take 1 tablet by mouth Daily. denosumab (PROLIA) 60 MG/ML solution syringe 1 mL. ferrous sulfate 325 (65 FE) MG tablet Take 1 tablet by mouth Daily With Breakfast. 06/11/2015 Fluticasone Furoate (Arnuity Ellipta) 200 MCG/ACTIndication s:Moderate COPD (chronic obstructive pulmonary disease),Shortnes s of breath Inhale 1 Act Daily. 1 Puff Daily - Fill as 90 day supply. However, pt will need an appt for further refills. 90 each 04/05/2025 guaiFENesin (MUCINEX) 600 MG 12 hr tablet Take 1 tablet by mouth 2 (Two) Times a Day. isosorbide mononitrate (IMDUR) 30 MG 24 hr tablet Take 1 tablet by mouth Daily. 3 07/29/2016 levothyroxine (SYNTHROID, LEVOTHROID) 75 MCG tablet Synthroid 75 mcg tablet TAKE 1 TABLET BY MOUTH EVERY MORNING nitroglycerin (NITROSTAT) 0.4 MG SL tablet 1 under the tongue as needed for angina, may repeat q5mins for up three doses 100 tablet 2 07/10/2016 rosuvastatin (CRESTOR) 40 MG tablet Take 1 tablet by mouth Daily. 2 12/08/2018 tiotropium bromide-olodatero l (Stiolto Respimat) 2.5-2.5 MCG/ACT aerosol solution inhalerIndication s:Moderate COPD (chronic obstructive pulmonary disease) Inhale 2 puffs Daily. 12 g 11 09/08/2024 vitamin D (ERGOCALCIFEROL) 1.25 MG (76612 UT) capsule capsule Take 1 capsule by mouth Every 14 (Fourteen) Days. 01/07/2021 benzonatate (TESSALON) 100 MG capsule Take 1 capsule by mouth 3 (Three) Times a Day As Needed for Cough for up to 5 days. 15 capsule 08/19/2025 5 documented as of this encounter ED Notes * Reuben Pratt MD - 08/18/2025 11:05 PM EDTAssociated Order(s): ECG 12 Lead Subjective History of Present Illness This is a 84-year-old female with past medical history of chronic bronchitis presenting to the emergency department with some cough and shortness of breath. The patient had the symptoms for the last 3 to 4 days. Patient states that her breathing got worse which prompted her to go to the emergency department. States that she was hypoxic at home. Patient [facility] to [facility]. She statesthat they admitted her because her troponins were marginally elevated. She states that she did not want to stay at that hospital so she came here. She is not having any chest pain. She has a mild cough. Nonproductive in nature. Denies any fevers or chills. No headache or change in vision. No focal weakness. No abdominal pain or vomiting History provided by: Patient firmware architect used: No Review of Systems Constitutional: Negative for chills and fever. HENT: Negative for congestion, ear pain and sore throat. Eyes: Negative for visual disturbance. Respiratory: Positive for shortness of breath. Cardiovascular: Negative for chest pain. Gastrointestinal: Negative for abdominal pain. Genitourinary: Negative for difficulty urinating. Musculoskeletal: Negative for arthralgias. Skin: Negative for rash. Neurological: Negative for dizziness, weakness and numbness. Psychiatric/Behavioral: Negative for agitation. Past Medical History: Diagnosis Date Allergic rhinitis CKD (chronic kidney disease), stage III COPD (chronic obstructive pulmonary disease) Moderate physiologic airway obstruction noted on pulmonary function tests. Coronary artery disease Emphysema of lung GERD (gastroesophageal reflux disease) History of chest x-ray 07/06/2013 There is evidence of old granulomatous disease. The interstitial pattern is prominent. No acute appearing pulmonary or parenchymal abnormalities appreciated.The changes are consistent with COPD with some flattening of both hemidiaphragms and interstitial prominence. History of chest x-ray 06/21/2012 Cardiac silhouette appears within normal limits of size. There is evidence of small calcified granulomas bilaterally. There are changes consistent with COPD.There is mild apical pleural scarring.No acute appearing pulmonary parenchymal abnormalities appreciated. History of chest x-ray 05/29/2011 There are changes consistent with COPD bilaterally. There is evidence of old granulomatous disease.There is mild biapical pleural scarring.There is probably some chronic appearing infiltrate in the lingula or RML.This is actually less prominent than on prior films but has been present to some degree on all of the comparison studies dating back to 12/13/2008 History of echocardiogram 04/20/2013 The RVSP was markedly increased,but in the presence of normal right heart size most likely indicates only mild to moderate pulmonary hypertension History of PFTs 12/11/2014 Moderate obstruction,NSC. Mildly low VC History of PFTs 12/19/2013 Moderate obstruction. NSC over priors History of PFTs 12/20/2012 Moderate OAD. NSC Hypertension Hypothyroidism Middle lobe syndrome Poor secretion clearance with abnormal CT in the past, likely related to mucous plugging. 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 Family History Problem Relation Age of Onset Stroke Mother Pneumonia Mother Recurrent Heart attack Father Pneumonia Other Other Other Bronchitis Breast cancer Other Heart attack Other Social History[2] Objective Physical Exam Vitals and nursing note reviewed. Constitutional: General: She is not in acute distress. Appearance: She is not ill-appearing or toxic-appearing. Eyes: Conjunctiva/sclera: Conjunctivae normal. Cardiovascular: Rate and Rhythm: Normal rate and regular rhythm. Pulmonary: Effort: Pulmonary effort is normal. No respiratory distress. Breath sounds: Rhonchi present. Abdominal: General: Abdomen is flat. There is no distension. Palpations: There is no mass. Tenderness: There is no abdominal tenderness. There is no guarding or rebound. Musculoskeletal: General: No deformity. Normal range of motion. Skin: General: Skin is warm. Findings: No rash. Neurological: General: No focal deficit present. Mental Status: She is alert and oriented to person, place, and time. Motor: No weakness. ECG 12 Lead Date/Time: 08/18/2025 11:10 PM Performed by: Reuben Pratt MD Authorized by: Reuben Pratt MD Interpreted by ED physician Comparison: compared with previous ECG Similar to previous ECG Rhythm: sinus rhythm Rate: normal BPM: 72 QRS axis: left Conduction: conduction normal Clinical impression: non-specific ECG Comments: Interpretation: EKG was directly visualized by myself, interpretations as documented in hospital course. ED Course ED Course as of 08/19/25 0140 Sat Aug 18, 20252310 BP: 154/97 [JK] 2310 Temp: 98.6 ??F (37 ??C) [JK] 2310 Temp src: Oral [JK] 2310 Heart Rate: 84 [JK] 2310 Device (Oxygen Therapy): room air [JK] 2310 SpO2: 95 % Interpretation: Patient's repeat vitals, telemetry tracing, and pulse oximetry tracing were directly viewed and interpreted by myself. O2 sat 95% on room air, interpreted as normal. Telemetry rhythm strip revealed a rate of 84 bpm, interpreted as normal sinus rhythm [JK] Radha Aug 19, 2025135 BNP [JK] 0136 High Sensitivity Troponin T 1Hr(!!) [JK] 0136 High Sensitivity Troponin T(!!) [JK] 0136 Comprehensive Metabolic Panel(!) [JK] 0136 CBC & Differential(!) [JK] 0136 Respiratory Panel PCR w/COVID-19(SARS-CoV-2) SHEILA/JANUSZ/CHIDI/PAD/COR/CUATE In- House, CAREER COUNSELOR Swab in UTM/VTM, 2 HR TAT - Swab, Nasopharynx(!) Interpretation: Laboratory studies were reviewed and interpreted directly by myself. CBC shows a mild leukocytosis white blood cell count 13.4, troponins are stable at 63 and 66, respiratory panel positive for rhinovirus [JK] 0137 CT Chest Without Contrast Diagnostic [JK] 0137 XR Chest 1 View Interpretation: Imaging was directly visualized by myself, per my interpretations, chest x-ray and CT of the chest showed chronic adenopathy and perihilar infiltrates. [JK] 0137 On reevaluation, patient is feeling better. Findings are consistent with bronchitis secondary to rhinovirus. The patient does have some chronic perihilar changes which is well-known that she follows up with pulmonology. [JK] 0138 I did discuss the findings with the patient. We went over the possibility of admission for observation as well as outpatient treatment. Patient is requesting outpatient and discharge. She already has a course of steroids at home. I will send in a short course of cough suppressants. Patient needs follow- up with her PCP in 24 hours. Given strict return precautions. Verbalized understanding. [JK] 0132 I had a discussion with the patient/family regarding diagnosis, diagnostic results, treatment plan, and medications. The patient/family indicated understanding of these instructions. I spent adequate time at the bedside prior to discharge necessary to discuss the aftercare instructions, givingpatient education, providing explanations of the results of our evaluations/findings, and my decision making to assure that the patient/family understand the plan of care. Time was allotted to answerquestions at that time and throughout the ED course. Patient is required to maintain timely follow up, as discussed. I also discussed the potential for the development of an acute emergent condition r equiring further evaluation, return to the ER, admission, or even surgical intervention. I encouraged the patient to return to the emergency department immediately for any concerns, worsening symptoms, new complaints, or if symptoms persist and they are unable to seek follow-up in a timely fashion.The patient/family expressed understanding and agreement with this plan Shared decision making: After full review of the patient's clinical presentation, review of any work-up including but not limited to laboratory studies and radiology obtained, I had a discussion with the patient. Treatment options were discussed as well as the risks, benefits and consequences. I discussed all findings with the patient and family members if available. During the discussion, treatment goals were understood by all as well as any misconceptions which were addressed with the patient. Ample time was given for any questions they may have had. They are in agreement with the treatment plan as well as final disposition. [JK] ED Course User Index [JK] Reuben Pratt MD Medical Decision Making This is a 84-year-old female with a history of chronic bronchitis presenting to the emergency department with shortness of breath and cough. Patient's findings seem consistent with exacerbation of her chronic bronchitis. She is not hypoxic. No respiratory distress. Overall, the patient is nontoxic.Afebrile. IV access was established in the patient. Placed on continuous telemetry monitoring. Given the patient's presentation, differential is broad and will require further evaluation. Workup initiated. Differential diagnosis: URI, bronchitis, COVID, influenza, sinusitis, viral syndrome, RSV, pneumonia, CHF, CAD, acute kidney injury, lecture abnormality, anemia Amount and/or Complexity of Data Reviewed Independent Historian: spouse External Data Reviewed: labs, radiology, ECG and notes. Details: External laboratories, imaging as well as notes were reviewed personally by myself. All relevant studies were used to guide decision making. Date of previous record: 03/09/2025 Source of note: Pulmonology Summary: Patient was seen and evaluated for routine visit. I did review basic laboratory studies onfile as well as a previous chest x-ray and EKG. Records reviewed Labs: ordered. Decision-making details documented in ED Course. Radiology: ordered and independent interpretation performed. Decision-making details documented in ED Course. ECG/medicine tests: ordered and independent interpretation performed. Decision- making details documented in ED Course. Risk Prescription drug management. Final diagnoses: Bronchitis Rhinovirus infection Stage 3a chronic kidney disease Primary hypertension Moderate COPD (chronic obstructive pulmonary disease) ED Disposition ED Disposition ED Disposition Discharge Condition Stable Comment -- Vicente Loyd MD [address] [facility] [address] [address] Call in 1 day Medication List New Prescriptions benzonatate 100 MG capsule Commonly known as: TESSALON Take 1 capsule by mouth 3 (Three) Times a Day As Needed for Cough for up to 5 days. Where to Get Your Medications These medications were sent to [id number] - [place], [place] - [address] [place] [address] AT NEXT TO [facility] - [phone] - [phone] [address] [facility] [address] benzonatate 100 MG capsule [1] Allergies Allergen Reactions Darvon [Propoxyphene] Doxycycline Other (See Comments) blisters [2] Social History Socioeconomic History Marital status: Tobacco Use Smoking status: Never Passive exposure: Never Smokeless tobacco: Never Vaping Use Vaping status: Never Used Substance and Sexual Activity Alcohol use: No Drug use: No Sexual activity: Defer Comment: Reuben Pratt MD 08/19/25 0140 documented in this encounter Plan of Treatment Pending Results Name Type Priority Associated Diagnoses Date /Time ECG 12 Lead ECG Routine 08/19/2025 1: 40 AM EDT documented as of this encounter Procedures Procedure Name Priority Date/Time Associated Diagnosis Comments ECG 12-LEAD Routine 08/19/2025 1:40 AM EDT HIGH SENSITIVITIY TROPONIN T 1HR STAT 08/19/2025 12:[address] CHEST WO CONTRAST DIAGNOSTIC STAT 08/19/2025 12:05 AM EDT XR CHEST 1 VW STAT 08/18/2025 11:21 PM EDT RESPIRATORY PANEL PCR W/ COVID-19 (SARS-COV-2), CAREER COUNSELOR SWAB IN UTM/VTP, 2 HR TAT STAT 08/18/2025 11:07 PM EDT ECG 12-LEAD STAT 08/18/2025 11:01 PM EDT SARGENT TOP STAT 08/18/2025 10:33 PM EDT GOLD TOP - SST STAT 08/18/2025 10:33 PM EDT DK GREEN TOP STAT 08/18/2025 10:33 PM EDT CBC WITH AUTO DIFFERENTIAL STAT 08/18/2025 10:33 PM EDT LAVENDER TOP STAT 08/18/2025 10:33 PM EDT LIGHT BLUE TOP STAT 08/18/2025 10:33 PM EDT RAINBOW DRAW STAT 08/18/2025 10:33 PM EDT TROPONIN STAT 08/18/2025 10:33 PM EDT CBC AND DIFFERENTIAL STAT 08/18/2025 10:33 PM EDT B-TYPE NATRIURETIC PEPTIDE STAT 08/18/2025 10:33 PM EDT COMPREHENSIVE METABOLIC PANEL STAT 08/18/2025 10:33 PM EDT SCANNED - TELEMETRY 08/18/2025 1 0:06 PM EDT ECG 12-LEAD STAT 08/18/2025 9:49 PM EDT documented in this encounter Results * (ABNORMAL) High Sensitivity Troponin T 1Hr (08/19/2025 12:19 AM EDT) Pathologist [facility] HS Troponin T 66(HH) <14 ng/L 08/19/2025 12:51 AM EDT [facility] Troponin T Numeric Delta 3 ng/L 08/19/2025 12:51 AM EDT [facility] Troponin T % Delta 5 Abnormal if >/= 20% 08/19/2025 12:51 AM EDT [facility] Blood Venipuncture / Unknown 08/19/2025 12:19 AM EDT 08/19/2025 12:30 AM EDT Narrative [facility] - 08/19/2025 12:51 AM EDT High Sensitive Troponin T Reference Range: <14.0 ng/L- Negative Female for AMI <22.0 ng/L- Negative Male for AMI >=14 - Abnormal Female indicating possible myocardial injury. >=22 - Abnormal Male indicating possible myocardial injury. Clinicians would have to utilize clinical acumen, EKG, Troponin, and serial changes to determine if it is an Acute Myocardial Infarction or myocardial injury due to an underlying chronic condition. us Reuben Pratt MD LAB BLOOD ORDERABLES Final Result [facility]
[address] [place] [address], * CT Chest Without Contrast Diagnostic (08/19/2025 12:05 AM EDT) Anatomical Region Laterality Modality Chest N/A Computed Tomogra phy 08/19/2025 12:4 8 AM EDT Impressions 08/19/2025 12:50 AM EDT Impression: 1.Chronic lung disease with age-indeterminate tree-in-bud nodules and bronchiectasis in the right middle lobe, lingula and inferior right upper lobe suggestive of an indolent infection, such as IZABEL. 2.Severe coronary artery disease. 3.Small hiatal hernia. 4.Cholelithiasis without evidence of acute cholecystitis. Electronically Signed: Joaquin Reynaga MD 08/19/2025 12:50 AM EDT Workstation ID: [id number] [facility] 08/19/2025 12:[address] CHEST WO CONTRAST DIAGNOSTIC Date of Exam: 08/18/2025 11:52 PM EDT Indication: Shortness of breath. Comparison: Chest radiograph 08/18/2025. Technique: Axial CT images were obtained of the chest without contrast administration. Reconstructed coronal and sagittal images were also obtained. Automated exposure control and iterative construction methods were used. Findings: The thyroid is atrophic. The trachea is unremarkable. There is a small stomach containing hiatal hernia. There are severe coronary artery calcifications and/or stents. No pericardial effusion or mediastinal lymphadenopathy. Mild aortic atherosclerosis. There is mild subpleural scarring in the lungs. There are age-indeterminate tree-in-bud nodules present within both lungs. There is evidence of chronic lung disease including scarring and atelectasis with bronchiectasis in the right middle lobe, lingula and the inferior aspect of the right upper lobe suggestive of an indolent infection, such as IZABEL. No focal lung consolidation. Airways are patent. No significant pleural disease. No acute findings in the superficial soft tissues or in the limited images of the upper abdomen. There are cysts in the liver. There is cholelithiasis without evidence of acute cholecystitis. No acute osseous abnormality. Minimal thoracic degenerative changes. Moderate lumbar spondylosis and moderate lumbar levoscoliosis. Procedure Note Joaquin Reynaga MD - 08/19/2025 CT CHEST WO CONTRAST DIAGNOSTIC Date of Exam: 08/18/2025 11:52 PM EDT Indication: Shortness of breath. Comparison: Chest radiograph 08/18/2025. Technique: Axial CT images were obtained of the chest without contrastadministration. Reconstructed coronal and sagittal images were alsoobtained. Automated exposure control and iterative construction methodswere used. Findings: The thyroid is atrophic. The trachea is unremarkable. There is a smallstomach containing hiatal hernia. There are severe coronary arterycalcifications and/or stents. No pericardial effusion or mediastinallymphadenopathy. Mild aortic atherosclerosis. There is mild subpleural scarring in the lungs. There areage-indeterminate tree-in-bud nodules present within both lungs. There isevidence of chronic lung disease including scarring and atelectasis withbronchiectasis in the right middle lobe, lingula and the inferior aspect of the right upper lobe suggestive of an indolentinfection, such as IZABEL. No focal lung consolidation. Airways are patent.No significant pleural disease. No acute findings in the superficial soft tissues or in the limited imagesof the upper abdomen. There are cysts in the liver. There ischolelithiasis without evidence of acute cholecystitis. No acute osseousabnormality. Minimal thoracic degenerative changes. Moderate lumbar spondylosis and moderate lumbar levoscoliosis. IMPRESSION: Impression: 1.Chronic lung disease with age-indeterminate tree-in-bud nodules andbronchiectasis in the right middle lobe, lingula and inferior right upperlobe suggestive of an indolent infection, such as IZABEL. 2.Severe coronary artery disease. 3.Small hiatal hernia. 4.Cholelithiasis without evidence of acute cholecystitis. Electronically Signed: Joaquin Reynaga MD 08/19/2025 12:50 AM EDT Workstation ID: [id number] Reuben Pratt MD IMG CT ORDERABLES Final Re sult * XR Chest 1 View (08/18/2025 11:21 PM EDT) Anatomical Region Laterality Modality Body N/A Radiographic Genesis ging 08/19/2025 12:1 5 AM EDT Impressions 08/19/2025 12:17 AM EDT Impression: No acute cardiopulmonary abnormality. Electronically Signed: Joaquin Reynaga MD 08/19/2025 12:17 AM EDT Workstation ID: [id number] Narrative 08/19/2025 12:17 AM EDT XR CHEST 1 VW Date of Exam: 08/18/2025 10:59 PM EDT Indication: SOA triage protocol. Comparison: 03/03/2024. Findings: There is no pneumothorax, pleural effusion or focal airspace consolidation. Heart size and pulmonary vasculature appear within normal limits. Regional bones appear intact. Procedure Note Joaquin Reynaga MD - 08/19/2025 XR CHEST 1 VW Date of Exam: 08/18/2025 10:59 PM EDT Indication: SOA triage protocol. Comparison: 03/03/2024. Findings: There is no pneumothorax, pleural effusion or focal airspaceconsolidation. Heart size and pulmonary vasculature appear within normallimits. Regional bones appear intact. IMPRESSION: Impression: No acute cardiopulmonary abnormality. Electronically Signed: Joaquin Reynaga MD 08/19/2025 12:17 AM EDT Workstation ID: [id number] Reuben Pratt MD IMG DIAGNOSTIC IMAGING ORD ERABLES Final Result * (ABNORMAL) Respiratory Panel PCR w/COVID-19(SARS-CoV-2) SHEILA/JANUSZ/CHIDI/PAD/COR/CUATE In-House, CAREER COUNSELOR Swab in UTM/VTM, 2 HR TAT - Swab, Nasopharynx (08/18/2025 11:07 PM EDT) ADENOVIRUS, PCR Not Detected Not Detected BIOFIRE TOR 08/19/2025 1:24 AM EDT [facility] Coronavirus 229E Not Detected Not Detected BIOFIRE TOR 08/19/2025 1:24 AM EDT [facility] Coronavirus HKU1 Not Detected Not Detected BIOFIRE TOR 08/19/2025 1:24 AM EDT [facility] Coronavirus NL63 Not Detected Not Detected BIOFIRE TOR 08/19/2025 1:24 AM EDT [facility] Coronavirus OC43 Not Detected Not Detected BIOFIRE TOR 08/19/2025 1:24 AM EDT [facility] COVID19 Not Detected Not Detected - Ref. Range BIOFIRE TORCH 08/19/2025 1:24 AM EDT [facility] Human Metapneumovirus Not Detected Not Detected BIOFIRE TOR 08/19/2025 1:24 AM EDT [facility] Human Rhinovirus/Enterov irus Detected(A) Not Detected BIOFIRE TORCH 08/19/2025 1:24 AM EDT [facility] Influenza A PCR Not Detected Not Detected BIOFIRE TORCH 08/19/2025 1:24 AM EDT [facility] Influenza B PCR Not Detected Not Detected BIOFIRE TORCH 08/19/2025 1:24 AM EDT [facility] Parainfluenza Virus 1 Not Detected Not Detected BIOFIRE TORCH 08/19/2025 1:24 AM EDT [facility] Parainfluenza Virus 2 Not Detected Not Detected BIOFIRE TORCH 08/19/2025 1:24 AM EDT [facility] Parainfluenza Virus 3 Not Detected Not Detected BIOFIRE TORCH 08/19/2025 1:24 AM EDT [facility] Parainfluenza Virus 4 Not Detected Not Detected BIOFIRE TORCH 08/19/2025 1:24 AM EDT [facility] RSV, PCR Not Detected Not Detected BIOFIRE TORCH 08/19/2025 1:24 AM EDT [facility] Bordetella pertussis pcr Not Detected Not Detected BIOFIRE TORCH 08/19/2025 1:24 AM EDT [facility] Bordetella parapertussis PCR Not Detected Not Detected BIOFIRE TORCH 08/19/2025 1:24 AM EDT [facility] Chlamydophila pneumoniae PCR Not Detected Not Detected BIOFIRE TORCH 08/19/2025 1:24 AM EDT [facility] Mycoplasma pneumo by PCR Not Detected Not Detected BIOFIRE TORCH 08/19/2025 1:24 AM EDT [facility] Swab Nasopharyngeal structure / Unknown Collection / Unknown 08/18/2025 11:07 PM EDT 08/18/2025 11:30 PM EDT [facility] - 08/19/2025 1:24 AM EDT In the setting of a positive respiratory panel with a viral infection PLUS a negative procalcitonin without other underlying concern for bacterial infection, consider observing off antibiotics or discontinuation of antibiotics and continue supportive care. If the respiratory panel is positive for atypical bacterial infection (Bordetella pertussis, Chlamydophila pneumoniae, or Mycoplasma pneumoniae), consider antibiotic de-escalation to target atypical bacterial infection. Reuben Pratt MD MICROBIOLOGY - GENERAL ORD ERABLES Final Result [facility]
[address] [place] [address], * ECG 12 Lead Dyspnea (08/18/2025 11:01 PM EDT) QT Interval 396 ms ECG QTC Interval 433 ms ECG 08/18/2025 11:0 1 PM EDT 08/21/2025 5:36 AM EDT Narrative ECG - 08/21/2025 5:36 AM EDT Test Reason : Dyspnea Blood Pressure : */* mmHG Vent. Rate : 72 BPM Atrial Rate : 72 BPM P-R Int : 138 ms QRS Dur : 102 ms QT Int : 396 ms P-R-T Axes : 36 -41 17 degrees QTcB Int : 433 ms Normal sinus rhythm Left axis deviation Minimal voltage criteria for LVH, may be normal variant Abnormal ECG When compared with ECG of 18-Aug-2025 21:49, (Unconfirmed) No significant change was found Confirmed by Reuben Pratt ([id number]) on 08/21/2025 5:36:31 AM Referred By: EDMD Confirmed By: Reuben Pratt Procedure Note Reuben Pratt MD - 08/21/2025 Test Reason : Dyspnea Blood Pressure : */* mmHG Vent. Rate : 72 BPM Atrial Rate : 72 BPM P-R Int : 138 ms QRS Dur : 102 ms QT Int : 396 ms P-R-T Axes : 36 -41 17 degrees QTcB Int : 433 ms Normal sinus rhythm Left axis deviation Minimal voltage criteria for LVH, may be normal variant Abnormal ECG When compared with ECG of 18-Aug-2025 21:49, (Unconfirmed) No significant change was found Confirmed by Reuben Pratt ([id number]) on 08/21/2025 5:36:31 AM Referred By: EDMD Confirmed By: Reuben Pratt us Reuben Pratt MD ECG ORDERABLES Final Resu lt ECG * (ABNORMAL) CBC Auto Differential (08/18/2025 10:33 PM EDT) WBC 13.44(H) 3.40 - 10.80 10*3/mm3 08/18/2025 11:08 PM EDT [facility] RBC 4.30 3.77 - 5.28 10*6/mm3 08/18/2025 11:08 PM EDT [facility] Hemoglobin 12.5 12.0 - 15.9 g/dL 08/18/2025 11:08 PM EDT [facility] Hematocrit 39.7 34.0 - 46.6 % 08/18/2025 11:08 PM EDT [facility] MCV 92.3 79.0 - 97.0 fL 08/18/2025 11:08 PM EDT [facility] MCH 29.1 26.6 - 33.0 pg 08/18/2025 11:08 PM EDT [facility] MCHC 31.5 31.5 - 35.7 g/dL 08/18/2025 11:08 PM EDT [facility] RDW 16.3(H) 12.3 - 15.4 % 08/18/2025 11:08 PM EDT [facility] RDW-SD 54.7(H) 37.0 - 54.0 fl 08/18/2025 11:08 PM EDT [facility] MPV 10.0 6.0 - 12.0 fL 08/18/2025 11:08 PM EDT [facility] Platelets 260 140 - 450 10*3/mm3 08/18/2025 11:08 PM EDT [facility] Neutrophil % 73.3 42.7 - 76.0 % 08/18/2025 11:08 PM EDT [facility] Lymphocyte % 16.2(L) 19.6 - 45.3 % 08/18/2025 11:08 PM EDT [facility] Monocyte % 9.9 5.0 - 12.0 % 08/18/2025 11:08 PM EDT [facility] Eosinophil % 0.0(L) 0.3 - 6.2 % 08/18/2025 11:08 PM EDT [facility] Basophil % 0.1 0.0 - 1.5 % 08/18/2025 11:08 PM T [facility] Immature Grans % 0.5 0.0 - 0.5 % 08/18/2025 11:08 PM T [facility] Neutrophils, Absolute 9.84(H) 1.70 - 7.00 10*3/mm3 08/18/2025 11:08 PM T [facility] Lymphocytes, Absolute 2.18 0.70 - 3.10 10*3/mm3 08/18/2025 11:08 PM T [facility] Monocytes, Absolute 1.33(H) 0.10 - 0.90 10*3/mm3 08/18/2025 11:08 PM T [facility] Eosinophils, Absolute 0.00 0.00 - 0.40 10*3/mm3 08/18/2025 11:08 PM T [facility] Basophils, Absolute 0.02 0.00 - 0.20 10*3/mm3 08/18/2025 11:08 PM T [facility] Immature Grans, Absolute 0.07(H) 0.00 - 0.05 10*3/mm3 08/18/2025 11:08 PM T [facility] nRBC 0.0 0.0 - 0.2 /100 WBC 08/18/2025 11:08 PM T [facility] Blood Line / Unknown 08/18/2025 10 :33 PM EDT 08/18/2025 10:45 PM EDT us Reuben Pratt MD LAB BLOOD ORDERABLES Final Result Performing Organization Address City/[facility]/ZIP Co de Phone Number [facility]
[address] [place] [address], [place] [phone] * Light Blue Top (08/18/2025 10:33 PM EDT) Extra Tube Hold for add-ons. 08/18/2025 10:46 PM EDT [facility] Comment:Auto resulted Blood Line / Unknown 08/18/2025 10 :33 PM EDT 08/18/2025 10:45 PM EDT us Reuben Pratt MD LAB BLOOD ORDER ONLY Final Result Performing Organization Address [facility] de Phone Number [facility]
[address] [place] [address], * Sargent Top (08/18/2025 10:33 PM EDT) Extra Tube Hold for add-ons. 08/18/2025 10:46 PM EDT [facility] Comment:Auto resulted. Blood Line / Unknown 08/18/2025 10 :33 PM EDT 08/18/2025 10:42 PM EDT us Reuben Pratt MD LAB BLOOD ORDER ONLY Final Result Performing Organization Address City/[facility] Co de Phone Number [facility]
[address] [place] [address], [place] [phone] * Gold Top - SST (08/18/2025 10:33 PM EDT) Extra Tube Hold for add-ons. 08/18/2025 10:46 PM EDT [facility] Comment:Auto resulted. Blood Line / Unknown 08/18/2025 10 :33 PM EDT 08/18/2025 10:42 PM EDT Reuben Pratt MD LAB BLOOD ORDER ONLY Final Result Performing Organization Address City/[facility]/ZIP Co de Phone Number [facility]
[address] [place] [address], [place] [phone] * Lavender Top (08/18/2025 10:33 PM EDT) Extra Tube hold for add-on 08/18/2025 10:46 PM EDT [facility] Comment:Auto resulted Blood Line / Unknown 08/18/2025 10 :33 PM EDT 08/18/2025 10:45 PM EDT us Reuben Pratt MD LAB BLOOD ORDER ONLY Final Result Performing Organization Address [facility] de Phone Number [facility]
[address] [place] [address], * Green Top (Gel) (08/18/2025 10:33 PM EDT) Extra Tube Hold for add-ons. 08/18/2025 10:46 PM EDT [facility] Comment:Auto resulted. Blood Line / Unknown 08/18/2025 10 :33 PM EDT 08/18/2025 10:42 PM EDT Reuben Pratt MD LAB BLOOD ORDER ONLY Final Result Performing Organization Address [facility] Co de Phone Number [facility]
[address] [place] [address], * (ABNORMAL) High Sensitivity Troponin T (08/18/2025 10:33 PM EDT) HS Troponin T 63(HH) <14 ng/L 08/18/2025 11:51 PM EDT [facility] Blood Line / Unknown 08/18/2025 10 :33 PM EDT 08/18/2025 10:42 PM EDT [facility] - 08/18/2025 11:51 PM EDT High Sensitive Troponin T Reference Range: <14.0 ng/L- Negative Female for AMI <22.0 ng/L- Negative Male for AMI >=14 - Abnormal Female indicating possible myocardial injury. >=22 - Abnormal Male indicating possible myocardial injury. Clinicians would have to utilize clinical acumen, EKG, Troponin, and serial changes to determine if it is an Acute Myocardial Infarction or myocardial injury due to an underlying chronic condition. Reuben Pratt MD LAB BLOOD ORDERABLES Final Result Performing Organization Address [facility] Co de Phone Number [facility]
[address] [place] [address], * BNP (08/18/2025 10:33 PM EDT) [facility] proBNP 802.0 0.0 - 1,800.0 pg/mL 08/18/2025 11:35 PM EDT [facility] Blood Line / Unknown 08/18/2025 10 :33 PM EDT 08/18/2025 10:42 PM EDT [facility] - 08/18/2025 11:35 PM EDT This assay is used as an aid in the diagnosis of individuals suspected of having heart failure. It can be used as an aid in the diagnosis of acute decompensated heart failure (ADHF) in patients presenting with signs and symptoms of ADHF to the emergency department (ED). In addition, NT-proBNP of <300 pg/mL indicates ADHF is not likely. Age Range Result Interpretation NT-proBNP Concentration (pg/mL: <50 Positive >450 Sargent 300-450 Negative <300 50-75 Positive >900 Sargent 300-900 Negative <300 >75 Positive >1800 Sargent 300-1800 Negative <300 Reuben Pratt MD LAB BLOOD ORDERABLES Final Result Performing Organization Address [facility]/ZIP Co de Phone Number [facility]
[address] [place] [address], * (ABNORMAL) Comprehensive Metabolic Panel (08/18/2025 10:33 PM EDT) Glucose 101(H) 65 - 99 mg/dL 08/18/2025 11:35 PM EDT [facility] BUN 9.6 8.0 - 23.0 mg/dL 08/18/2025 11:35 PM EDT [facility] Creatinine 0.91 0.57 - 1.00 mg/dL 08/18/2025 11:35 PM EDT [facility] Sodium 139 136 - 145 mmol/L 08/18/2025 11:35 PM EDT [facility] Potassium 3.9 3.5 - 5.2 mmol/L 08/18/2025 11:35 PM EDT [facility] Chloride 107 98 - 107 mmol/L 08/18/2025 11:35 PM EDT [facility] CO2 23.4 22.0 - 29.0 mmol/L 08/18/2025 11:35 PM EDT [facility] Calcium 8.9 8.6 - 10.5 mg/dL 08/18/2025 11:35 PM EDT [facility] Total Protein 6.1 6.0 - 8.5 g/dL 08/18/2025 11:35 PM EDT [facility] Albumin 3.5 3.5 - 5.2 g/dL 08/18/2025 11:35 PM EDT [facility] ALT (SGPT) 13 1 - 33 U/L 08/18/2025 11:35 PM EDT [facility] AST (SGOT) 27 1 - 32 U/L 08/18/2025 11:35 PM EDT [facility] Alkaline Phosphatase 57 39 - 117 U/L 08/18/2025 11:35 PM EDT [facility] Total Bilirubin 0.3 0.0 - 1.2 mg/dL 08/18/2025 11:35 PM EDT [facility] Globulin 2.6 gm/dL 08/18/2025 11:35 PM EDT [facility] Comment:Calculated Result A/G Ratio 1.3 g/dL 08/18/2025 11:35 PM EDT [facility] BUN/Creatinine Ratio 10.5 7.0 - 25.0 08/18/2025 11:35 PM EDT [facility] Anion Gap 8.6 5.0 - 15.0 mmol/L 08/18/2025 11:35 PM EDT [facility] eGFR 63.1 >60.0 mL/min/1.7 3 08/18/2025 11:35 PM EDT [facility] Blood Line / Unknown 08/18/2025 10 :33 PM EDT 08/18/2025 10:42 PM EDT Narrative [facility] - 08/18/2025 11:35 PM EDT GFR Categories in Chronic Kidney Disease (CKD) GFR Category GFR (mL/min/1.73) Interpretation G1 90 or greater Normal or high (1) G2 60-89 Mild decrease (1) G3a 45-59 Mild to moderate decrease G3b 30-44 Moderate to severe decrease G4 15-29 Severe decrease G5 14 or less Kidney failure (1)In the absence of evidence of kidney disease, neither GFR category G1 or G2 fulfill the criteria for CKD. eGFR calculation 2020 CKD-EPI creatinine equation, which does not include race as a factor Reuben Pratt MD LAB BLOOD ORDERABLES Final Result [facility]
[address] [place] [address], * Telemetry Scan (08/18/2025 10:06 PM EDT) [facility] ECG ORDERABLES Final Result * ECG 12 Lead Dyspnea (08/18/2025 9:49 PM EDT) QT Interval 370 ms ECG QTC Interval 432 ms ECG 08/18/2025 9:49 PM EDT 08/21/2025 5:35 AM EDT Narrative ECG - 08/21/2025 5:35 AM EDT Test Reason : Dyspnea Blood Pressure : */* mmHG Vent. Rate : 82 BPM Atrial Rate : 82 BPM P-R Int : 114 ms QRS Dur : 96 ms QT Int : 370 ms P-R-T Axes : -25 -39 51 degrees QTcB Int : 432 ms Normal sinus rhythm Left axis deviation Moderate voltage criteria for LVH, may be normal variant ( R in aVL , Hunter product ) Nonspecific ST abnormality Abnormal ECG When compared with ECG of 28-Apr-2016 08:18, ST no longer depressed in Inferior leads Non-specific change in ST segment in Lateral leads T wave inversion no longer evident in Anterolateral leads Confirmed by Reuben Pratt ([id number]) on 08/21/2025 5:35:49 AM Referred By: Confirmed By: Reuben Pratt Procedure Note Reuben Pratt MD - 08/21/2025 Test Reason : Dyspnea Blood Pressure : */* mmHG Vent. Rate : 82 BPM Atrial Rate : 82 BPM P-R Int : 114 ms QRS Dur : 96 ms QT Int : 370 ms P-R-T Axes : -25 -39 51 degrees QTcB Int : 432 ms Normal sinus rhythm Left axis deviation Moderate voltage criteria for LVH, may be normal variant ( R in aVL , Hunter product ) Nonspecific ST abnormality Abnormal ECG When compared with ECG of 28-Apr-2016 08:18, ST no longer depressed in Inferior leads Non-specific change in ST segment in Lateral leads T wave inversion no longer evident in Anterolateral leads Confirmed by Reuben Pratt ([id number]) on 08/21/2025 5:35:49 AM Referred By: Confirmed By: Reuben Pratt us Reuben Pratt MD ECG ORDERABLES Final Resu lt ECG documented in this encounter Visit Diagnoses Diagnosis Bronchitis- Primary Bronchitis, not specified as acute or chronic Rhinovirus infection Stage 3a chronic kidney disease Primary hypertension Unspecified essential hypertension Moderate COPD (chronic obstructive pulmonary disease) documented in this encounter Administered Medications Inactive Administered Medications - up to 3 most recent administrations Medication Order MAR Action Action Date Dose Rate Site sodium chloride 0.9 % flush 10 mL 10 mL, Intravenous, As Needed, Line Care, Starting on 08/18/25 at 2150 documented in this encounter Active and Recently Administered Medications Times are shown in EDT. PRN Medication Order 08/17/2025 08/18/2025 08/19/2025 sodium chloride 0.9 % flush 10 mL 10 mL, Intravenous, As Needed, Line Care, Starting on 08/18/25 at 2150 documented in this encounter Additional Health Concerns Infection Onset Date Last Indicated Resolved Time Rhinovirus 08/18/2025 08/18/2025 documented as of this encounter Care Teams Mortician Investigator Relationship Specialty Start Date End Date Vicente Loyd MD [address] [facility] [address] [place] [id number] PCP - General Internal Medicine 05/14/16 documented as of this encounter
--- NOTE | 2025-09-05 12:50 | US_ITS ---
FINAL REPORT CLINICAL HISTORY: PYURIA-- urinary bladder FINDINGS: Limited images of the urinary bladder were obtained. Prevoid volume is 119 mL. Postvoid volume is 63 mL. Ureteral jets are visualized. No masses are seen within the urinary bladder. IMPRESSION: Moderate postvoid residual. Reviewed, Interpreted and Dictated by Tone Nunes MD Transcribed by Theresa Etienne Authenticated and [facility]
--- OUTSIDE RECORDS SUMMARY | 2025-09-05 12:51 | XMS_ITS | Clinical Summary ---
Author Organization [facility] Address [address] [place] [address] Care Team Providers Care Assembler Mechanical Ordnance Name Role Phone Vicente Loyd MD Primary Care Provider [phone] Allergies Active Allergy Reactions Criticality Noted Date [...] MORNING Active vitamin D (ERGOCALCIFEROL) 1.25 MG (95595 UT) capsule capsule Take 1 capsule by [...] for further refills. 90 each 5 Active benzonatate (TESSALON) 100 MG capsule Take 1 capsule by mouth 3 (Three) Times a Day As Needed for Cough for up to 5 days. 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 Non-ST elevation AL (NSTEMI) 04/27/2016 Hypertension 04/27/2016 Dyslipidemia 04/27/2016 Hypothyroid 04/27/2016 Stricture of esophagus 04/03/2016 Overview (04/03/2016): Description: A. History of Schatzki's ring with dilation x2. 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 Poor secretion clearance with abnormal CT in the past, likely related to mucous plugging. Secondary pulmonary hypertension 04/03/2016 Chronic kidney disease, stage III (moderate) Osteoporosis 03/23/2016 Encounters Date Type Department Care Team Description 08/18/2025 9:56 PM EDT - 08/19/2025 1:54 AM EDT Emergency [facility] EMERGENCY DEPARTMENT [address] [place] [address] Reuben Pratt MD Bronchitis (Primary Dx); Rhinovirus infection; Stage 3a chronic kidney disease; Primary hypertension; Moderate COPD (chronic obstructive pulmonary disease) Discharge Disposition: Home or Self Care 08/18/2025 Travel from Last 3 Months Immunizations Immunization Administration Dates Next Due COVID-19 (SocialDefender) Purple Cap Monovalent 12/30/2020,12/09/2020 Fluad Quad 65+ [...] Mass Index 23.96 08/18/2025 9:47 PM EDT Plan of Treatment Health Maintenance Due [...] , 08/20/2022, Additional history exists COVID-19 Vaccine (2024- 6 season) 2025 04/17/2022, 07/16/2021, 12/30/2020, Additional history exists DXA SCAN 10/21/2025 10/21/2023 MAMMOGRAM Discontinued 06/18/2023, 06/08, 06/12/2022, Additional history exists Pneumococcal Vaccine 50+ Completed 03/03/2024, 05/2018 Medical Devices Implanted Type Area Maintenance Craftsman Device Identifier Shelf Expiration Date Model / Serial / Lot Stent Xience Alpine Jeremias Rx [id number] - [id number] Implanted:Qty: 1 on 04/27/2016 by Susana Parmar MD at [facility] [employer] 12/29/2018 [id number] / / [id number] Stent Xience Alpine Jeremias Rx [id number] - [id number] Implanted:Qty: 1 on 04/27/2016 by Susana Parmar MD at [facility] [employer] 01/15/2019 [id number] / / [id number] Stent Xience Alpine Jeremias Rx [id number] - [id number] Implanted:Qty: 1 on 04/27/2016 by Susana Parmar MD at [facility] [employer] [id number] / / Procedures Procedure Name Priority Date/Time Associated Diagnosis Comments ECG 12-LEAD Routine 08/19/2025 1:40 AM EDT HIGH SENSITIVITIY TROPONIN T 1HR STAT 08/19/2025 12:[address] CHEST WO CONTRAST DIAGNOSTIC STAT 08/19/2025 12:05 AM EDT XR CHEST 1 VW STAT 08/18/2025 11:21 PM EDT RESPIRATORY PANEL PCR W/ COVID-19 (SARS-COV-2), [employer] SALES REPRESENTATIVE SWAB IN UTM/VTP, 2 HR TAT STAT 08/18/2025 11:07 PM EDT ECG 12-LEAD STAT 08/18/2025 11:01 PM EDT LIGHT BLUE TOP STAT 08/18/2025 10:33 PM EDT SARGENT TOP STAT 08/18/2025 10:33 PM EDT GOLD TOP - SST STAT 08/18/2025 10:33 PM EDT LAVENDER TOP STAT 08/18/2025 10:33 PM EDT DK GREEN TOP STAT 08/18/2025 10:33 PM EDT CBC AND DIFFERENTIAL STAT 08/18/2025 10:33 PM EDT CBC WITH AUTO DIFFERENTIAL STAT 08/18/2025 10:33 PM EDT TROPONIN STAT 08/18/2025 10:33 PM EDT B-TYPE NATRIURETIC PEPTIDE STAT 08/18/2025 10:33 PM EDT COMPREHENSIVE METABOLIC PANEL STAT 08/18/2025 10:33 PM EDT RAINBOW DRAW STAT 08/18/2025 10:33 PM EDT SCANNED - TELEMETRY 08/18/2025 1 0:06 PM EDT ECG 12-LEAD STAT 08/18/2025 9:49 PM EDT LIPID PANEL Routine 04/27/2016 10:36 PM EDT from Last 3 Months or Most Recently Relevant to Health Maintenance Results * (ABNORMAL) High Sensitivity Troponin T 1Hr (08/19/2025 12:19 AM EDT) [facility] HS Troponin T 66(HH) <14 ng/L 08/19/2025 12:51 AM EDT [facility] Troponin T Numeric Delta 3 ng/L 08/19/2025 12:51 AM EDT [facility] Troponin T % Delta 5 Abnormal if >/= 20% 08/19/2025 12:51 AM EDT [facility] Blood Venipuncture / Unknown 08/19/2025 12:19 AM EDT 08/19/2025 12:30 AM EDT Narrative [facility] - 08/19/2025 12:51 AM EDT High [...] Pratt MD LAB BLOOD ORDERABLES Final Result [facility]
[address] [place] [address], * CT Chest Without Contrast Diagnostic (08/19/2025 [...] MD 08/19/2025 12:50 AM EDT Workstation ID: [id number] Narrative 08/19/2025 12:[address] CHEST WO [...] MD 08/19/2025 12:50 AM EDT Workstation ID: [id number] us Reuben Pratt MD IMG CT ORDERABLES Final Re sult * XR Chest 1 View (08/18/2025 11:21 PM EDT) Anatomical Region Laterality Modality Body N/A Radiographic Genesis ging 08/19/2025 12:1 5 AM EDT Impressions 08/19/2025 12:17 AM EDT Impression: No acute cardiopulmonary abnormality. Electronically Signed: Joaquin Reynaga MD 08/19/2025 12:17 AM EDT Workstation ID: [id number] Narrative 08/19/2025 12:17 AM EDT XR CHEST [...] MD 08/19/2025 12:17 AM EDT Workstation ID: [id number] Reuben Pratt MD IMG DIAGNOSTIC IMAGING ORD ERABLES Final Result * (ABNORMAL) Respiratory Panel PCR w/COVID-19(SARS-CoV-2) SHEILA/JANUSZ/CHIDI/PAD/COR/CUATE In-House, [employer] SALES REPRESENTATIVE Swab in UTM/VTM, 2 HR TAT - Swab, Nasopharynx (08/18/2025 11:07 PM EDT) Pathologist [facility] ADENOVIRUS, PCR Not Detected Not Detected BIOFIRE TORCH 08/19/2025 1:24 AM EDT [facility] Coronavirus 229E Not Detected Not Detected BIOFIRE TORCH 08/19/2025 1:24 AM EDT [facility] Coronavirus HKU1 Not Detected Not Detected BIOFIRE TORCH 08/19/2025 1:24 AM EDT [facility] Coronavirus NL63 Not Detected Not Detected BIOFIRE TORCH 08/19/2025 1:24 AM EDT [facility] Coronavirus OC43 Not Detected Not Detected BIOFIRE TORCH 08/19/2025 1:24 AM EDT [facility] COVID19 Not Detected Not Detected - Ref. Range BIOFIRE TOR 08/19/2025 1:24 AM EDT [facility] Human Metapneumovirus Not Detected Not Detected BIOFIRE TORCH 08/19/2025 1:24 AM EDT [facility] Human Rhinovirus/Enterov irus Detected(A) Not Detected BIOFIRE TORCH 08/19/2025 1:24 AM EDT [facility] Influenza A PCR Not Detected Not Detected BIOFIRE TORCH 08/19/2025 1:24 AM EDT [facility] Influenza B PCR Not Detected Not Detected BIOFIRE TORCH 08/19/2025 1:24 AM EDT [facility] Parainfluenza Virus 1 Not Detected Not Detected BIOFIRE TORCH 08/19/2025 1:24 AM EDT [facility] Parainfluenza Virus 2 Not Detected Not Detected BIOFIRE TORCH 08/19/2025 1:24 AM EDT [facility] Parainfluenza Virus 3 Not Detected Not Detected BIOFIRE TORCH 08/19/2025 1:24 AM EDT [facility] Parainfluenza Virus 4 Not Detected Not Detected BIOFIRE TORCH 08/19/2025 1:24 AM EDT [facility] RSV, PCR Not Detected Not Detected BIOFIRE TORCH 08/19/2025 1:24 AM EDT [facility] Bordetella pertussis pcr Not Detected Not Detected BIOFIRE TORCH 08/19/2025 1:24 AM EDT [facility] Bordetella parapertussis PCR Not Detected Not Detected BIOFIRE TORCH 08/19/2025 1:24 AM EDT [facility] Chlamydophila pneumoniae PCR Not Detected Not Detected BIOFIRE TORCH 08/19/2025 1:24 AM EDT [facility] Mycoplasma pneumo by PCR Not Detected Not Detected BIOFIRE TOR 08/19/2025 1:24 AM EDT [facility] Swab Nasopharyngeal structure / Unknown Collection / Unknown 08/18/2025 11:07 PM EDT 08/18/2025 11:30 PM EDT [facility] LABORATORY - 08/19/2025 1:24 AM EDT [...] antibiotic de-escalation to target atypical bacterial infection. us Reuben Pratt MD MICROBIOLOGY - GENERAL ORD ERABLES Final Result [facility]
[address] [place] [address], * ECG 12 Lead Dyspnea (08/18/2025 11:01 PM EDT) Only the most recent of2 resultswithin the time period is included. QT Interval 396 ms ECG QTC Interval [...] (273) on 08/21/2025 5:36:31 AM Referred By: ED Confirmed By: Reuben Pratt us Reuben Pratt MD ECG ORDERABLES Final Resu lt ECG * Sargent Top (08/18/2025 10:33 PM EDT) Extra Tube Hold for add-ons. 08/18/2025 10:46 PM EDT [facility] Comment:Auto resulted. Blood Line / Unknown 08/18/2025 10 :33 PM EDT 08/18/2025 10:42 PM EDT us Reuben Pratt MD LAB BLOOD ORDER ONLY Final Result Performing Organization Address City/[facility]/ZIP Co de Phone Number [facility]
[address] [place] [address], [place] [phone] * Gold Top - SST (08/18/2025 10:33 PM EDT) Extra Tube Hold for add-ons. 08/18/2025 10:46 PM EDT [facility] Comment:Auto resulted. Blood Line / Unknown 08/18/2025 10 :33 PM EDT 08/18/2025 10:42 PM EDT us Reuben Pratt MD LAB BLOOD ORDER ONLY Final Result Performing Organization Address [facility] Co de Phone Number [facility]
[address] [place] [address], [place] [phone] * Green Top (Gel) (08/18/2025 10:33 PM EDT) Extra Tube Hold for add-ons. 08/18/2025 10:46 PM EDT [facility] Comment:Auto resulted. Blood Line / Unknown 08/18/2025 10 :33 PM EDT 08/18/2025 10:42 PM EDT us Reuben Pratt MD LAB BLOOD ORDER ONLY Final Result Performing Organization Address City/[facility] Co de Phone Number [facility]
[address] [place] [address], [place] [phone] * (ABNORMAL) CBC Auto Differential (08/18/2025 10:33 PM EDT) WBC 13.44(H) 3.40 - 10.80 10*3/mm3 08/18/2025 11:08 PM EDT [facility] RBC 4.30 3.77 - 5.28 10*6/mm3 08/18/2025 11:08 PM EDT [facility] Hemoglobin 12.5 12.0 - 15.9 g/dL 08/18/2025 11:08 PM EDT [facility] Hematocrit 39.7 34.0 - 46.6 % 08/18/2025 11:08 PM EDT [facility] MCV 92.3 79.0 - 97.0 fL 08/18/2025 11:08 PM EDT [facility] MCH 29.1 26.6 - 33.0 pg 08/18/2025 11:08 PM EDT [facility] MCHC 31.5 31.5 - 35.7 g/dL 08/18/2025 11:08 PM EDT [facility] RDW 16.3(H) 12.3 - 15.4 % 08/18/2025 11:08 PM EDT [facility] RDW-SD 54.7(H) 37.0 - 54.0 fl 08/18/2025 11:08 PM EDT [facility] MPV 10.0 6.0 - 12.0 fL 08/18/2025 11:08 PM EDT [facility] Platelets 260 140 - 450 10*3/mm3 08/18/2025 11:08 PM EDT [facility] Neutrophil % 73.3 42.7 - 76.0 % 08/18/2025 11:08 PM EDT [facility] Lymphocyte % 16.2(L) 19.6 - 45.3 % 08/18/2025 11:08 PM EDT [facility] Monocyte % 9.9 5.0 - 12.0 % 08/18/2025 11:08 PM EDT [facility] Eosinophil % 0.0(L) 0.3 - 6.2 % 08/18/2025 11:08 PM EDT [facility] Basophil % 0.1 0.0 - 1.5 % 08/18/2025 11:08 PM EDT [facility] Immature Grans % 0.5 0.0 - 0.5 % 08/18/2025 11:08 PM EDT [facility] Neutrophils, Absolute 9.84(H) 1.70 - 7.00 10*3/mm3 08/18/2025 11:08 PM EDT [facility] Lymphocytes, Absolute 2.18 0.70 - 3.10 10*3/mm3 08/18/2025 11:08 PM EDT [facility] Monocytes, Absolute 1.33(H) 0.10 - 0.90 10*3/mm3 08/18/2025 11:08 PM EDT [facility] Eosinophils, Absolute 0.00 0.00 - 0.40 10*3/mm3 08/18/2025 11:08 PM EDT [facility] Basophils, Absolute 0.02 0.00 - 0.20 10*3/mm3 08/18/2025 11:08 PM EDT [facility] Immature Grans, Absolute 0.07(H) 0.00 - 0.05 10*3/mm3 08/18/2025 11:08 PM EDT [facility] nRBC 0.0 0.0 - 0.2 /100 WBC 08/18/2025 11:08 PM EDT [facility] Blood Line / Unknown 08/18/2025 10 :33 PM EDT 08/18/2025 10:45 PM EDT Reuben Pratt MD LAB BLOOD ORDERABLES Final Result [facility]
[address] [place] [address], * Lavender Top (08/18/2025 10:33 PM EDT) Extra Tube hold for add-on 08/18/2025 10:46 PM EDT [facility] Comment:Auto resulted Blood Line / Unknown 08/18/2025 10 :33 PM EDT 08/18/2025 10:45 PM EDT us Reuben Pratt MD LAB BLOOD ORDER ONLY Final Result [facility]
[address] [place] [address], * Light Blue Top (08/18/2025 10:33 PM EDT) [facility] Extra Tube Hold for add-ons. 08/18/2025 10:46 PM EDT [facility] Comment:Auto resulted Blood Line / Unknown 08/18/2025 10 :33 PM EDT 08/18/2025 10:45 PM EDT us Reuben Pratt MD LAB BLOOD ORDER ONLY Final Result Performing Organization Address City/[facility]/ZIP Co de Phone Number [facility]
[address] [place] [address], [place] [phone] * (ABNORMAL) High Sensitivity Troponin T (08/18/2025 10:33 PM EDT) [facility] HS Troponin T 63(HH) <14 ng/L 08/18/2025 11:51 PM EDT [facility] Blood Line / Unknown 08/18/2025 10 :33 PM EDT 08/18/2025 10:42 PM EDT Narrative [facility] - 08/18/2025 11:51 PM EDT High [...] BLOOD ORDERABLES Final Result Performing Organization Address City/[facility]/ZIP Co de Phone Number [facility]
[address] [place] [address], * BNP (08/18/2025 10:33 PM EDT) proBNP 802.0 0.0 - 1,800.0 pg/mL 08/18/2025 11:35 PM EDT [facility] Blood Line / Unknown 08/18/2025 10 :33 PM EDT 08/18/2025 10:42 PM EDT Narrative [facility] - 08/18/2025 11:35 PM EDT This [...] BLOOD ORDERABLES Final Result Performing Organization Address [facility] Co de Phone Number [facility]
[address] [place] [address], * (ABNORMAL) Comprehensive Metabolic Panel (08/18/2025 10:33 PM EDT) Glucose 101(H) 65 - 99 mg/dL 08/18/2025 11:35 PM EDT [facility] BUN 9.6 8.0 - 23.0 mg/dL 08/18/2025 11:35 PM EDT [facility] Creatinine 0.91 0.57 - 1.00 mg/dL 08/18/2025 11:35 PM EDT [facility] Sodium 139 136 - 145 mmol/L 08/18/2025 11:35 PM T [facility] Potassium 3.9 3.5 - 5.2 mmol/L 08/18/2025 11:35 PM [facility] Chloride 107 98 - 107 mmol/L 08/18/2025 11:35 PM [facility] CO2 23.4 22.0 - 29.0 mmol/L 08/18/2025 11:35 PM EDT [facility] Calcium 8.9 8.6 - 10.5 mg/dL 08/18/2025 11:35 PM T [facility] Total Protein 6.1 6.0 - 8.5 g/dL 08/18/2025 11:35 PM [facility] Albumin 3.5 3.5 - 5.2 g/dL 08/18/2025 11:35 PM [facility] ALT (SGPT) 13 1 - 33 U/L 08/18/2025 11:35 PM [facility] AST (SGOT) 27 1 - 32 U/L 08/18/2025 11:35 PM [facility] Alkaline Phosphatase 57 39 - 117 U/L 08/18/2025 11:35 PM [facility] Total Bilirubin 0.3 0.0 - 1.2 mg/dL 08/18/2025 11:35 PM [facility] Globulin 2.6 gm/dL 08/18/2025 11:35 PM [facility] Comment:Calculated Result A/G Ratio 1.3 g/dL 08/18/2025 11:35 PM T [facility] BUN/Creatinine Ratio 10.5 7.0 - 25.0 08/18/2025 11:35 PM [facility] Anion Gap 8.6 5.0 - 15.0 mmol/L 08/18/2025 11:35 PM [facility] eGFR 63.1 >60.0 mL/min/1.7 3 08/18/2025 11:35 PM [facility] Blood Line / Unknown 08/18/2025 10 :33 PM EDT 08/18/2025 10:42 PM EDT Narrative [facility] - 08/18/2025 11:35 PM EDT GFR [...] Pratt MD LAB BLOOD ORDERABLES Final Result [facility]
[address] [place] [address], * Telemetry Scan (08/18/2025 10:06 PM EDT) [facility] ECG ORDERABLES Final Result * (ABNORMAL) Once Lipid panel (04/27/2016 10:36 PM EDT) Total Cholesterol 235(H) 0 - 200 mg/dL 04/27/2016 11:23 PM EDT [facility] Triglycerides 236(H) 0 - 150 mg/dL 04/27/2016 11:23 PM EDT [facility] HDL Cholesterol 36(L) 40 - 60 mg/dL 04/27/2016 11:23 PM EDT [facility] VLDL Cholesterol 47.2 mg/dL 04/27/20 16 11:23 PM EDT [facility] LDL/HDL Ratio 4.22 04/27/2016 11:23 PM EDT [facility] LDL Cholesterol 128 0 - 130 mg/dL 04/27/2016 11:23 PM EDT [facility] Blood specimen (specimen) Line / Unknown 04/27/2016 10:36 PM EDT 04/27/2016 10:36 PM EDT Narrative [facility] - 04/27/2016 11:23 PM EDT Cholesterol [...] 160-189 mg/dL Very High > 189 mg/dL Susana Parmar MD LAB BLOOD ORDERABLES Final Resul t [facility]
[address] [place] [address], from Last 3 Months or Most Recently Relevant to Health Maintenance Additional Health Concerns Infection Onset Date Last Indicated Rhinovirus 08/18/2025 08/18/2025 Insurance MEDICARE A & B [employer]IL [employer] Advance Directives * Full Code (Latest Code Status on File) Date Activated Date Inactivated Comments 04/27/2016 5:43 PM 04/29/2016 5:27 PM Question Answer Comments Level Of Support Discussed With: Patient * Full Code Date Activated Date Inactivated Comments 04/27/2016 2:17 PM 04/27/2016 5:43 PM Care Teams Assembler Mechanical Ordnance Relationship Specialty Start Date End Date Vicente Loyd MD [address] [place] [facility] [address] [place] [address] PCP - General Internal Medicine 05/14/16
--- OUTSIDE RECORDS SUMMARY | 2025-09-05 12:51 | XMS_ITS | Data Portability ---
Author Organization [facility] ADMIN Address [address] [place] [id number] Assessment No assessment recorded. Plan of Treatment [...] 01/04/20 24 Fiberoptic Laryngoscopy completed Eusebio Evert [facility] 01/04/2024 13:54:53 Imaging Results None recorded. Procedure Notes None recorded. Medical Equipment None Reported. Allergies Allergen ID Allergen Name Allergen Category Reaction Reaction Severity Criticality Documentation Date Start Date Code Code System Note Provider Name and Address Organization Details Recorded Time 917856 doxycycli ne Not available other Not available high 01/04/2024 3640 RxNorm blist ers on body Ashanti Tran wilson [facility] 13:18:06 Medications Name Sig Start Date [...] Updated DateTime 01/04/2024 165.1 cm 24.5 kg/m2 63235.08 g 99.3 [degF] Ashanti GRIMALDO [facility] 01/04/2024 13:17:17 Social History None recorded. Functional Status None recorded. Mental Status None recorded. Family History Nothing Reported. Medical History Condition Response Allergies/Hayfever Y Heart Problems N None N Heart Conditions N Emphysema N Migraines N Thyroid Problems Y Glaucoma N Depression N Developmental Delay N Anemia N Immune System Disorder N Anesthesia Complications N Heart Attack ([place]) Y Anxiety Disorder N Diabetes N Bleeding Disorder N Arthritis N Hearing Loss N Tuberculosis N Acid Reflux (GERD) Y Hyperlipidemia N Cancer N Stroke N Asthma Y Sleep [...] ICD10 Code Diagnosis IMO Codes Diagnosis Note [id number] Earnestine Alvarado MD [facility] [facility] [place] [address] 01/04/2024 13:00:17 01/04/2024 14:02:37 Change in voice [id number] R49.9 Explained to the patient I saw [...] back as needed. History of Marquita pelayo [id number] Z87.19 Health Concerns Section Related Observation LastModified by Organization Detai ls LastModified Time None Recorded Concern Status LastModified by Organization Details LastModified Time None Recorded Advance Directives Directive None Recorded Payers Insurance Date Sequence Insurance Name Policy Number Policy Pink Covered Member ID Pink Member ID Guarantor Name 01/04/2024 2 [employer] - MAIL [employer]LERS BENEFIT PLAN (POS II) [id number] Nuzhat Bae [id number] Nuzhat Bae 12/20/2023 1 MEDICARE-RE (MEDICARE) Nuzhat Bae [id number] Nuzhat Bae Notes Date Note Type [...] [place]. She said a few days before [place] she experienced a situation where she was not able to breath or talk for about seven minutes. She was able to use her rescue inhaler and be seen by her Pantograph I Engraver, Dr. Paige and they referred her to us. Patient has never had a tonsillectomy. Earnestine Alvarado MD [address] [facility] [address], [place], [address], [place] - [place] - [place] & [place] 01/05/2024 16:36:38 OBGyn Episode No OBEpisode recorded.
--- OUTSIDE RECORDS SUMMARY | 2025-09-05 12:51 | XMS_ITS | Clinical Summary ---
Author Organization [employer] ([place], [place], [place], [place]) Address [address] [place] [address] Care Team Providers Care Ball Warper Tender Name Role Phone Vicente Loyd MD Primary Care Provider [phone] Social History Tobacco Use Types Packs/Day Years [...] Date Les rded Speak language other than Ecuadorean at home Not on file 11/19/2023 Want [...] therapy. RISK FACTORS: Estrogen deficiency. COMPARISON STUDY: [facility] FINDINGS: Bone densitometry was performed using a Swipely unit. Sites measured included the spine and [...] therapy. RISK FACTORS: Estrogen deficiency. COMPARISON STUDY: [facility] FINDINGS: Bone densitometry was performed using a Swipely unit. Sites measured included the spine and [...] Relevant to Health Maintenance Insurance [place] [id number] MEDICARE PART A B [employer] Care Teams Ball Warper Tender Relationship Specialty Start Date End Date Vicente Loyd MD [address] [place] [address] [place] [phone] PCP - General General Internal Medicine 06/18/23
--- OUTSIDE RECORDS SUMMARY | 2025-09-05 12:51 | XMS_ITS | Referral Summary ---
Author Organization [facility] ([place], [place], [place], [place]) Address [address] [place] [address] Care Team Providers Care Media Production Operator Name Role Phone Vicente Loyd MD Primary Care Provider [phone] Social History Tobacco Use Types Packs/Day Years [...] Date Les rded Speak language other than Moldovan at home Not on file 11/19/2023 Want [...] Estrogen deficiency. COMPARISON STUDY: [facility] FINDINGS: Bone densitometry was performed using a Zemanta unit. Sites measured included the spine and [...] Estrogen deficiency. COMPARISON STUDY: [facility] FINDINGS: Bone densitometry was performed using a Zemanta unit. Sites measured included the spine and [...] examination in 2 years. Jennifer German MD [facility] [place] [facility] ORDERABLES Final Result from Last 3 Months or Most Recently Relevant to Health Maintenance Insurance MEDICARE PART A B [employer] Care Teams Media Production Operator Relationship Specialty Start Date End Date Vicente Loyd MD [address] [place] [id number] PCP - General General Internal Medicine 06/18/23
--- OUTSIDE RECORDS SUMMARY | 2025-09-05 12:52 | XMS_ITS | Encounter Summary ---
Author Organization [facility] Address [address] [place] [address] Care Team Providers Care Back Up Machine Operator Name Role Phone Vicente Loyd MD Primary Care Provider [phone] Encounter Details Date Type Department Care Team (Latest Contact Info) Description 08/18/2025 Travel Social History Tobacco Use Types Packs/Day Years [...] 9:49 PM EDT Jone Logan, RN * [place] Suicide Severity Rating Scale (Screener/Recent Self-Report) Question [...] on file documented as of this encounter Visit Diagnoses Not on filedocumented in this encounter Care Teams Back Up Machine Operator Relationship Specialty Start Date End Date Vicente Loyd MD [facility] [address] [facility] [place] [address] PCP - General Internal Medicine 05/14/16 documented as of this encounter
--- OUTSIDE RECORDS SUMMARY | 2025-09-05 12:52 | XMS_ITS | Data Portability ---
Author Organization RE [facility] [place] [facility] Address [address] [facility] [address] [place] [address] Assessment No assessment recorded. Plan of Treatment Reminders Order Date Submit Date Provider Last Modified By Organization Details Last Modified Time Details Appointments BONE DENSITY 2024 11:40A M Bone_dens ity Not available Not available Not available RECHECK 2024 01:00P M ARIEL BLUE MD Not available Not available Not available Lab BMP, serum or plasma 2023 024 [facility], [address] [place] [address], [phone], 09/19/2024 09:42:09 PTH (parathyr oid hormone), intact + calcium, serum or plasma 2023 024 [email or web address] [facility], [address] [place] [address], [phone], 09/19/2024 09:42:10 T4, free, serum 2023 024 [email or web address] [facility], [address] [place] [address], [phone], 09/21/2024 08:33:22 TSH, serum or plasma 2023 024 [email or web address] [facility], [address] [place] [address], [address], 09/21/2024 08:33:23 BMP, serum or plasma 2022 023 [facility], [address] [place] [address], [address], 08/17/2023 12:11:42 PTH (parathyr oid hormone), intact + calcium, serum or plasma 2022 023 [facility], [address] [place] [address], [address], 08/17/2023 12:37:31 CBC w/ auto diff 2022 023 [facility], [address] [place] [address], [address], 08/17/2023 11:42:12 vitamin B12 + folate, serum or blood 2022 023 [facility], [address] [place] [address], [address], 08/17/2023 12:37:29 iron + total iron-bind ing capacity (TIBC), serum 2022 023 [facility], [address] [place] [address], [address], 08/17/2023 12:11:40 T4, free, serum 2022 023 [facility], [address] [place] [address], [address], 08/17/2023 12:13:22 TSH, serum or plasma 2022 023 [facility], [address] [place] [address], [address], 08/17/2023 12:13:21 vitamin D, 25-hydrox y, total, serum 2022 023 [facility], [address] [place] [address], [address], 02/09/2023 12:36:18 T4, free, serum 2022 023 [facility], [address] [place], [address], 02/09/2023 12:29:04 TSH, serum or plasma 2022 023 [facility], [address] [place], [address], 02/09/2023 12:29:05 Referral None recorded. Procedures None recorded. Surgeries None recorded. Imaging DEXA - 1 year follow-up osteoporo sis on Prolia therapy 2023 024 [email or web address] [facility] Scheduling, [address], [place], [address], 08/29/2025 09:36:18 DEXA 2022 023 [email or web address] [facility] Scheduling, [address], [place], [address], 08/31/2023 07:26:20 Medication Orders Prolia 60 mg/mL subcutane ous syringe 2024 025 [email or web address] Not available 02/27/2025 10:41:52 Prolia 60 mg/mL subcutane ous syringe [facility]23 [id number] [address] [place], [address], 08/22/2024 10:31:59 Prolia 60 mg/mL subcutane ous syringe 2023 024 [email or web address] Not available 02/22/2024 09:52:19 Prolia 60 mg/mL subcutane ous syringe 2022 023 [email or web address] [id number], [address] [place], [address], 08/17/2023 12:13:48 Prolia 60 mg/mL subcutane ous syringe 2022 023 [email or web address] Not available 02/09/2023 11:22:34 Synthroid 75 mcg tablet 2022 023 [email or web address] [id number], [address] [place], [address], 02/09/2023 10:53:19 Patient TargetsNo targets recorded. Patient InstructionsNo instructions recorded. Reason for Referral None Reported. Results Created Date Observation Date Name Description Value Unit Range Abnormal Flag Note LastModifiedBy Organization Detail LastModifiedTime 02/10/2002/09/2023 T4,FR EE T4,free 1.70 NG/dL 0.93-1 .70 normal Not Available [facility] [address] [place] [address], [address], 02/09/2023 12:29:04 02/10/20 23 02/09/2023 TSH TSH 0.837 uIU/m L 0.270- 4.200 normal Not Available [facility] [address] [place] [address], [address], 02/09/2023 12:29:05 02/10/20 23 02/09/2023 VITAM IN D 25-OH vitamin D 25-oh, total 61 NG/mL >=30 NG/mL normal Not Available [facility] [address] [place] [address], [address], 02/09/2023 12:36:18 08/17/2008/17/2023 COMPL ETE BLOOD COUNT white blood cells 8.5 10*3/ uL 3.8-10 .8 normal Not Available [facility] [address] [place] [address], [address], 08/17/2023 11:42:12 08/17/20 23 08/17/2023 COMPL ETE BLOOD COUNT red blood cells 4.56 10*6/ uL 3.80-5 .20 normal Not Available [facility] [address] [place] [address], [address], 08/17/2023 11:42:12 08/17/20 23 08/17/2023 COMPL ETE BLOOD COUNT hemoglobin 13.7 g/dL 12.0-1 6.0 normal Not Available [facility] [address] [place] [address], [address], 08/17/2023 11:42:12 08/17/2008/17/2023 COMPL ETE BLOOD COUNT hematocrit 41.3 % 35.0-4 7.0 normal Not Available [facility] [address] [place] [address], [address], 08/17/2023 11:42:12 08/17/2008/17/2023 COMPL ETE BLOOD COUNT MCV 91 fL 80-100 normal Not Available [facility] [address] [place] [address], [address], 08/17/2023 11:42:12 08/17/2008/17/2023 COMPL ETE BLOOD COUNT MCH 30 pg 26-35 normal Not Available [facility] [address] [place] [address], [address], 08/17/2023 11:42:12 08/17/2008/17/2023 COMPL ETE BLOOD COUNT MCHC 33 g/dL 32-36 normal Not Available [facility] [address] [place] [address], [address], 08/17/2023 11:42:12 08/17/2008/17/2023 COMPL ETE BLOOD COUNT RDW 16.0 % 11.0-1 5.0 high Not Available [facility] [address] [place] [address], [address], 08/17/2023 11:42:12 08/17/2008/17/2023 COMPL ETE BLOOD COUNT MPV 7.9 fL 6.2-10 .5 normal Not Available [facility] [address] [place] [address], [address], 08/17/2023 11:42:12 08/17/2008/17/2023 COMPL ETE BLOOD COUNT platelet count 213 10*3/ uL 150-40 0 normal PLEAS E NOTE: NEW YEIMI L RANGE Not Available [facility] [address] [place] [address], [address], 08/17/2023 11:42:12 08/17/20 23 08/17/2023 COMPL ETE BLOOD COUNT neutrophil,a bsolute 5.4 10*3/ uL 1.6-8. 4 normal Not Available [facility] [address] [place] [address], [address], 08/17/2023 11:42:12 08/17/2008/17/2023 COMPL ETE BLOOD COUNT lymphocyte,a bsolute 2.0 10*3/ uL 0.4-5. 1 normal Not Available [facility] [address] [place] [address], [address], 08/17/2023 11:42:12 08/17/2008/17/2023 COMPL ETE BLOOD COUNT monocyte,abs olute 0.9 10*3/ uL 0.0-1. 2 normal Not Available [facility] [address] [place] [address], [address], 08/17/2023 11:42:12 08/17/20 23 08/17/2023 COMPL ETE BLOOD COUNT eosinophil,a bsolute 0.2 10*3/ uL 0.0-0. 8 normal Not Available [facility] [address] [place] [address], [address], 08/17/2023 11:42:12 08/17/20 23 08/17/2023 COMPL ETE BLOOD COUNT basophil,abs olute 0.1 10*3/ uL 0.0-0. 3 normal Not Available [facility] [address] [place] [address], [address], 08/17/2023 11:42:12 08/17/20 23 08/17/2023 COMPL ETE BLOOD COUNT % neutrophils 62.9 % 42.0-7 8.0 normal Not Available [facility] [address] [place] [address], [address], 08/17/2023 11:42:12 08/17/20 23 08/17/2023 COMPL ETE BLOOD COUNT % lymphocytes 23.5 % 11.0-4 7.0 normal Not Available [facility] [address] [place] [address], [address], 08/17/2023 11:42:12 08/17/20 23 08/17/2023 COMPL ETE BLOOD COUNT % monocytes 10.3 % 0.0-11 .0 normal Not Available [facility] [address] [place] [address], [address], 08/17/2023 11:42:12 08/17/20 23 08/17/2023 COMPL ETE BLOOD COUNT % eosinophils 2.5 % 0.0-7. 0 normal Not Available [facility] [address] [place] [address], [address], 08/17/2023 11:42:12 08/17/20 23 08/17/2023 COMPL ETE BLOOD COUNT % basophils 0.8 % 0.0-3. 0 normal Not Available [facility] [address] [place] [address], [address], 08/17/2023 11:42:12 08/17/20 23 08/17/2023 COMPL ETE BLOOD COUNT nucleated red cells 0.1 % 0.0-0. 9 normal Not Available [facility] [address] [place] [address], [address], 08/17/2023 11:42:12 08/17/2008/17/2023 COMPL ETE BLOOD COUNT nucleated RBCs, absolute 0.01 10*3/ uL not estab. normal Not Available [facility] [address] [place] [address], [address], 08/17/2023 11:42:12 10/08/27 2308/17/2023 IRON PANEL -TOTA L AND TIBC iron 80 ug/dL 37-145 normal Not Available [facility] [address] [place] [address], [address], 08/17/2023 12:11:40 08/17/2008/17/2023 IRON PANEL -TOTA L AND TIBC total iron binding cap. 265 ug/dL _(brenda c) 250-45 0 normal Not Available [facility] [address] [place] [address], [address], 08/17/2023 12:11:40 08/17/2008/17/2023 IRON PANEL -TOTA L AND TIBC unsat.iron binding cap. 185 ug/dL 112-34 7 normal Not Available [facility] [address] [place] [address], [address], 08/17/2023 12:11:40 08/17/2008/17/2023 IRON PANEL -TOTA L AND TIBC % saturation 30 %_(ca lc) 15-50 normal Not Available [facility] [address] [place] [address], [address], 08/17/2023 12:11:40 08/17/2008/17/2023 BASIC METAB OLIC PANEL glucose 90 mg/dL 74-100 normal Not Available [facility] [address] [place] [address], [address], 08/17/2023 12:11:42 08/17/2008/17/2023 BASIC METAB OLIC PANEL blood urea nitrogen 16 mg/dL 6-20 normal Not Available [facility] [address] [place] [address], [address], 08/17/2023 12:11:42 08/17/2008/17/2023 BASIC METAB OLIC PANEL creatinine 0.94 mg/dL 0.50-0 .95 normal Not Available [facility] [address] [place] [address], [address], 08/17/2023 12:11:42 08/17/20 23 08/17/2023 BASIC METAB OLIC PANEL BUN/creatini ne ratio 17 (calc ) 10-20 normal Not Available [facility] [address] [place] [address], [address], 08/17/2023 12:11:42 08/17/20 23 08/17/2023 BASIC METAB OLIC PANEL sodium 140 mmol/ L 136-14 5 normal Not Available [facility] [address] [place] [address], [address], 08/17/2023 12:11:42 08/17/2008/17/2023 BASIC METAB OLIC PANEL potassium 4.2 mmol/ L 3.4-5. 0 normal Not Available [facility] [address] [place] [address], [address], 08/17/2023 12:11:42 08/17/2008/17/2023 BASIC METAB OLIC PANEL chloride 103 mmol/ L 98-107 normal Not Available [facility] [address] [place] [address], [address], 08/17/2023 12:11:42 08/17/2008/17/2023 BASIC METAB OLIC PANEL carbon dioxide 26 mmol/ L 22-31 normal Not Available [facility] [address] [place] [address], [address], 08/17/2023 12:11:42 08/17/2008/17/2023 BASIC METAB OLIC PANEL anion gap 11 (calc ) 7-25 normal Not Available [facility] [address] [place] [address], [address], 08/17/2023 12:11:42 08/17/2008/17/2023 BASIC METAB OLIC PANEL calcium 9.2 mg/dL 8.6-10 .2 normal Not Available [facility] [address] [place] [address], [address], 08/17/2023 12:11:42 08/17/20 23 08/17/2023 BASIC METAB [...] s/KDO QI/gf r_cal culat orPed Not Available [facility] [address] [place] [address], [address], 08/17/2023 12:11:42 08/17/20 23 08/17/2023 TSH TSH 3.630 u[IU] /mL 0.270- 4.200 normal Not Available [facility] [address] [place] [address], [address], 08/17/2023 12:13:21 08/17/2008/17/2023 T4,FR EE T4,free 1.54 NG/dL 0.93-1 .70 normal Not Available [facility] [address] [place] [address], [address], 08/17/2023 12:13:22 08/17/20 23 08/17/2023 B12/F OLIC ACID PANEL folic acid >20.0 NG/mL 4.6-34 .8 normal Not Available [facility] [address] [place], [address], 08/17/2023 12:37:29 08/17/20 23 08/17/2023 B12/F OLIC ACID PANEL vitamin B12 433 pg/mL 232-12 45 normal Not Available [facility] [address] [place] [address], [address], 08/17/2023 12:37:29 08/17/20 23 08/17/2023 PTH, INTAC [...] ===== ===== ===== ===== ==== Not Available [facility] [address] [place] [address], [address], 08/17/2023 12:37:39 08/17/20 23 08/17/2023 PTH, INTAC T WITH CA calcium 9.1 mg/dL 8.6-10 .2 normal Not Available [facility] [address] [place] [address], [address], 08/17/2023 12:37:39 08/22/20 24 08/22/2024 BASIC METAB OLIC PANEL glucose 90 mg/dL 74-100 normal Not Available [facility] [address] [place] [address], [address], 08/22/2024 11:28:21 08/22/20 24 08/22/2024 BASIC METAB OLIC PANEL blood urea nitrogen 16 mg/dL 6-20 normal Not Available [facility] [address] [place] [address], [address], 08/22/2024 11:28:21 08/22/20 24 08/22/2024 BASIC METAB OLIC PANEL creatinine 0.87 mg/dL 0.50-0 .95 normal Not Available [facility] [address] [place] [address], [address], 08/22/2024 11:28:21 08/22/20 24 08/22/2024 BASIC METAB OLIC PANEL BUN/creatini ne ratio 18 (calc ) 10-20 normal Not Available [facility] [address] [place] [address], [address], 08/22/2024 11:28:21 08/22/20 08/22/2024 BASIC METAB OLIC PANEL sodium 142 mmol/ L 136-14 5 normal Not Available [facility] [address] [place] [address], [address], 08/22/2024 11:28:21 08/22/20 24 08/22/2024 BASIC METAB OLIC PANEL potassium 4.0 mmol/ L 3.4-5. 0 normal Not Available [facility] [address] [place] [address], [address], 08/22/2024 11:28:21 08/22/2008/22/2024 BASIC METAB OLIC PANEL chloride 107 mmol/ L 98-107 normal Not Available [facility] [address] [place] [address], [address], 08/22/2024 11:28:21 08/22/2008/22/2024 BASIC METAB OLIC PANEL carbon dioxide 24 mmol/ L 22-31 normal Not Available [facility] [address] [place] [address], [address], 08/22/2024 11:28:21 08/22/2008/22/2024 BASIC METAB OLIC PANEL anion gap 11 (calc ) 7-25 normal Not Available [facility] [address] [place] [address], [address], 08/22/2024 11:28:21 08/22/2008/22/2024 BASIC METAB OLIC PANEL calcium 8.8 mg/dL 8.6-10 .2 normal Not Available [facility] [address] [place] [address], [address], 08/22/2024 11:28:21 08/22/2008/22/2024 BASIC METAB OLIC PANEL [...] s/KDO QI/gf r_cal culat orPed Not Available [facility] [address] [place] [address], [address], 08/22/2024 11:28:21 08/22/20 24 08/22/2024 T4,FR EE T4,free 1.46 NG/dL 0.93-1 .70 normal Not Available [facility] [address] [place] [address], [address], 08/22/2024 11:35:19 08/22/20 24 08/22/2024 TSH TSH 5.650 u[IU] /mL 0.270- 4.200 high Not Available [facility] [address] [place], [address], 08/22/2024 11:35:21 08/22/20 24 08/22/2024 PTH, INTAC [...] ===== ===== ===== ===== ==== Not Available [facility] [address] [place] [address], [address], 08/22/2024 11:46:21 08/22/20 24 08/22/2024 PTH, INTAC T WITH CA calcium 8.8 mg/dL 8.6-10 .2 normal Not Available [facility] [address] [place], [address], 08/22/2024 11:46:21 10/21/20 23 10/21/2023 DEXA No observ ation record ed. [email or web address] Not Available 2022 16:57:06 Result Notes None recorded. 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 Procedures Surgical History Date Name Laterality Status Provider Name and Address Organization Details Recorded Time 02/28/20 25 Prolia Injection completed Jackie Kong [facility] 02/27/2025 10:41:13 08/22/20 24 Prolia Injection completed Faye Francis [facility] 08/22/2024 10:27:07 02/22/20 24 Prolia Injection completed Erika Mouser [facility] 02/22/2024 09:50:02 08/17/20 23 Prolia Injection completed ARIEL BLUE MD [address] [place], [address], [facility] 08/17/2023 12:15:18 02/10/20 23 Prolia Injection completed Erika Mouser [facility] 02/09/2023 11:04:04 02/12/20 22 Prolia Injection completed Sophie Daigle [facility] 02/11/2022 09:36:07 08/08/20 21 Prolia Injection completed Erika Mouser [facility] 08/08/2021 10:32:17 02/01/20 21 Prolia Injection completed Erika Mouser [facility] 01/31/2021 13:01:40 06/27/20 20 Prolia Injection completed Moni Carrizales [facility] 06/27/2020 09:30:23 11/14/19 20 Prolia Injection completed Erika Mouser [facility] 11/14/2019 11:59:28 09/22/20 19 Pap Smear collection completed BOOKER STORM APRN [address] [place], [address], [facility] 09/22/2019 13:52:43 09/22/20 19 Date of Last Pap Smear completed Felecia Spicery Shelly [facility] 10/04/2019 11:46:12 10/28/20 18 Prolia Injection completed [facility] 10/28/2018 11:08:18 04/07/20 18 Prolia Injection completed [facility] 04/07/2018 10:32:56 03/31/20 16 Most Recent Bone Density completed [facility] 09/15/2019 11:45:17 12/15/19 14 Most Recent Mammogram completed [facility] 09/15/2019 11:45:22 09/15/20 12 Date of Last Colonoscopy completed [facility] 09/15/2019 11:44:27 Cardiac Surgery completed Erika Elaine [facility] 03/23/2017 10:06:32 Imaging Results None recorded. Procedure Notes None recorded. Medical Equipment None Reported. Allergies Allergen ID Allergen Name Allergen Category Reaction Reaction Severity Criticality Documentation Date Start Date Code Code System Note Provider Name and Address Organization Details Recorded Time 20261109 propoxyph rico hydrochlo ride medicatio n Not available Not available Not available 10/01/20162009 41278 RxNorm Comme nt: Creat ed By: Arie jenkins Date: 010 10:10 :00 AM; Not Available [facility] 6 12:22:33 [id number] propoxyph rico hydrochlo ride Not available other Not available Not available 10/02/20162008 89831 RxNorm React ion: OTHER ; Comme nt: vahe mustafaat ions; Creat ed By: Connor jarrett Date: 2008 8:10: 43 AM; Not Available [facility] 6 08:39:40 [id number] doxycycli ne Not available hives severe Not available 03/22/2018 3640 [facility] 09:59:13 Medications Name Sig Start Date [...] aerosol Not Available Not Available Not Available Unithroid 75 mcg tablet TAKE 1 TABLET BY MOUTH EVERY DAY IN THE MORNIN 2024 active 08/22/24 - 5 Not Available Not Available Not Available Asprin [...] Updated DateTime 02/09/2023 160.02 cm 28.5 kg/m2 11540.37 g 65 /min 120/65 mm[Hg] [facility] 02/09/2023 10:34:35 Date Recorded Body height Body mass index (BMI) Body weight Heart rate Systolic And Diastolic Provider Name and Address Organization Details Last Updated DateTime 08/17/2023 160.02 cm 28.2 kg/m2 54269.19 g 64 /min 120/78 mm[Hg] [facility] 08/17/2023 10:50:08 Date Recorded Body height Body mass index (BMI) Body weight Heart rate Systolic And Diastolic Provider Name and Address Organization Details Last Updated DateTime 08/22/2024 160.02 cm 25.9 kg/m2 42147.49 g 70 /min 118/76 mm[Hg] [facility] 08/22/2024 09:57:23 Social History Question Answer Notes LastModified by Organizat ion Details LastModified Time Tobacco Smoking Status Never Smoker Maikel Dleuna [facility] 09/22/2019 13:12:40 What Is Your Level Of [...] Time Paternal Grandmother Malignant neoplasm of breast [email or web address] Not available 09/08 13:51:04 Medical History Condition Response Other Stroke N Kidney Disease N Bleeding Disorder N Hypothyroidism Y Liver Disease N Thyroid Problems Y Anemia Y Diabetes N Hypertension Y Osteoporosis Y Gynecological History Statement/Question Response If Post Menopausal, [...] ICD10 Code Diagnosis IMO Codes Diagnosis Note [id number] QM_IMPORTS QM[facility] [address] 02/08/2017 19:17:28 02/08/2017 19:17:29 [id number] ARIEL BLUE MD ENDOCRINO [facility] [address] [place] [address] 03/23/2017 09:42:52 03/23/2017 16:18:33 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 [...] to be determined as appropriat e i.e. [id number] ARIEL BLUE MD [facility]CR[facility] [address] [place] [address] 03/22/2018 09:52:01 03/22/2018 10:39:18 Postmenopausal osteoporosis [id number] M81.0 N18.9 Has been on Forteo i.e. [...] with bone density while on therapy Hypothyroidism 85389811 E03.9 Appears a clinically euthyroid Check TSH today [id number] ARIEL BLUE MD END[facility]CRINO [facility] [address] [place] [address] 04/07/2018 10:22:41 04/07/2018 12:22:33 Osteoporosis 37758733 M81.0 [id number] ARIEL BLUE MD ENDOCRINO [facility] [address] [place] [address] 10/28/2018 10:39:20 10/28/2018 15:30:52 Osteoporosis 21732641 M81.0 [id number] ARIEL BLUE MD END[facility]CRINO [facility] [address] [place] [address] 04/11/2019 12:50:35 04/12/2019 08:01:52 Postmenopausal osteoporosis [id number] M81.0 N18.9 Previously on Forteo i.e. About [...] with bone density while on therapy Hypothyroidism 02511959 E03.9 Appears a clinically euthyroid Check TSH today Brand Synthroid 88 g Further adjustment as appropriat e [id number] BOOKER STORM APRN [facility] 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 About [...] visit with bone density while on therapy [id number] ARIEL BLUE MD [facility] [address] [place] [address] 05/17/2020 09:50:50 05/17/2020 10:21:49 Postmenopausal osteoporosis [id number] M81.0 N18.9 13 months follow-up visit osteoporos [...] trauma fractures Most recent bone density at [facility] is consistent with osteoporos is by virtue [...] therapy [ approved by her insurance] Hypothyroidism 23900885 E03.9 Reported her thinning Check TSH today [...] as appropriat e Prescripti on to follow [id number] ARIEL BLUE MD [facility] [address] [place] [address] 06/27/2020 09:14:49 06/27/2020 11:09:49 Postmenopausal osteoporosis 775467443 M81.0 N18.9 13 months follow-up visit osteoporos [...] trauma fractures Most recent bone density at [facility] is consistent with osteoporos is by virtue [...] on therapy [ approved by her insurance] [id number] ARIEL BLUE MD END[facility]INO [facility]Y [address] [address] 01/31/2021 12:54:04 01/31/2021 14:23:10 Postmenopausal osteoporosis 285401326 M81.0 N18.9 [id number] ARIEL BLUE MD END[facility]Y [address] [address] 04/21/2021 08:02:31 04/21/2021 08:34:31 Osteoporosis 26861833 M81.0 Follow-up osteoporos is No recent falls or low trauma fractures Tolerating well prolia 60 mg subcutaneo us every 6 months Last dose of January 2021 Recommenda tions: Continue current therapy i.e. 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 [id number] [place] [address] [place] [id number] 08/08/2021 09:44:04 08/08/2021 15:12:15 Postmenopausal osteoporosis [id number] M81.0 N18.9 [id number] [place] [address] [place] [phone] 02/11/2022 09:30:21 02/19/2022 08:36:41 Osteoporosis 96195452 M81.0 Follow-up osteoporos is No recent falls or low trauma fractures Tolerating well prolia 60 mg subcutaneo us every 6 months Last dose of January 2021 Recommenda tions: Continue current therapy i.e. due for her next dose in July 2021 Follow-up bone density at [facility] 1 year follow-up [id number] ARIEL BLUE MD [facility]CRINO [facility] SB [address] [place] [phone] 05/22/2022 12:48:41 05/22/2022 13:37:10 Osteoporosis 35722525 M81.0 Follow-up osteoporos is No recent falls or low trauma fracturesB one density in 2020, May showed improved on density over hip region and lumbar spine. Tolerating well prolia 60 mg subcutaneo us every 6 months Last dose in February 2022 Recommenda tions: Continue current therapy i.e. due for her next dose in August 2022 Follow-up bone density at [facility] prevention counseling provided 1 year follow-up Hypothyroidism 59878988 E03.9 FatigueFur ther decreased Synthroid from 75 [...] on to follow Vitamin D deficiency 347 07073 E55.9 50,000 units weekly Recheck 2500 to vitamin D Further adjustment as appropriat e Patient verbalized understand ing and agreed with the above mentioned plan of care. [id number] ARIEL BLUE MD [facility] [address] [place] [phone] 02/09/2023 10:24:47 02/09/2023 12:55:42 Hypothyroidism 95425500 E03.9 Clinically reported hair loss She denies [...] to keep levels within normal range Osteoporosis 71918722 M8 1.0 Follow-up osteoporos isNo recent falls or low trauma fracturesS he missed 1 dose in August2Recomm endations: Continue current therapy received her injection in the office todayFollo w-up bone density at [facility] to be scheduled next office visit after 6 moreFalls prevention counseling provided6- month follow-up [id number] [place] [address] [place] [phone] 08/17/2023 10:39:13 08/17/2023 13:22:59 Osteoporosis 16937355 M81.0 Follow-up osteoporos isNo recent falls or low trauma fracturesR eceived her last injection in February 2023Recomm endations: Continue current therapy received her injection in the office todayFollo w-up bone density at [facility] prevention counseling provided Hypothyroidism 65017175 E03.9 She is a still complainin g [...] levels within normal range Loss of hair 936109042 L 65.9 Uncertain etiologyEv aluate for anemia Hyperparathyroidism 6699 9008 E21.3 Mildly elevated PTH in the context of normal 25-hydroxy vitamin D, calcium and kidney function testRechec k PTH and calcium today [id number] ARIEL BLUE MD [facility]Y [address] [address] 02/22/2024 09:34:37 02/22/2024 10:07:01 Osteoporosis 02165894 M81.0 [id number] ARIEL BLUE MD [facility] [address] [place] [phone] 1 08/22/2024 09:30:37 08/22/2024 10:33:26 Hypothyroidism 24473372 E03.9 Clinically appears euthyroidC ontinue current Synthroid [...] to keep levels within normal range Osteoporosis 98366456 M8 1.0 Follow-up osteoporos isNo recent falls or low trauma fracturesR ecommendat ions:Tati coleman current therapy received her injection in the office todayFollo w-up bone density at [facility] in October 2024Falls prevention counseling provided Hyperparathyroidism 6699 9008 E21.3 Mildly elevated PTH in the context of normal 25-hydroxy vitamin D, calcium and kidney function testRechec k PTH and calcium today1 year follow-up Patient verbalized understand ing and agreed with the above mentioned plan of care. [id number] ARIEL BLUE MD [facility] [address] [place] [address] 02/27/2025 10:16:07 02/27/2025 11:31:53 Osteoporosis 95916745 M81.0 Health Concerns Section Related Observation LastModified by Organization Detai ls LastModified Time None Recorded Concern Status LastModified by Organization Details LastModified Time None Recorded Advance Directives Directive None Recorded Payers Insurance Date Sequence Insurance Name Policy Number Policy Pink Covered Member ID Pink Member ID Guarantor Name 04/11/2019 2 [employer] (MEDICARE SUPPLEMENT) Nuzhat Lloyd Bae [id number] Nuzhat Bae 02/24/2025 2 [employer] (POS II) [id number] Nuzhat Bae [id number] Nuzhat Bae 03/22/2018 2 [employer] (Closed) HANDLERS BENEFIT PLAN - AET[employer] CHOICE POS II (PPO) [id number] Nuzhat lLoyd Bae [id number] Nuzhat Lloyd Bae 02/24/2025 1 [place] Nuzhat C Catalino [id number] Nuzhat Lloyd Bae Notes Date Note [...] post fall while she was shopping at [employer]. No history of high-dose glucocorticoid therapy. No [...] a.m. appropriately as instructed.Reported hair loss Takes tfxt-wdg-ldosojb vitamin ARIEL BLUE MD [address] [place] [address], [phone] 02/09/2023 11:25:47 08/17/2023 text/html Mrs. Bae [...] post fall while she was shopping at [employer]. No history of high-dose glucocorticoid therapy. No [...] as instructed.Complaini ng of hair loss Takes uyvo-xni-hmsudil vitamin vitamin D/calcium ARIEL BLUE MD [address] [place] [address], [phone], [facility] 08/17/2023 12:17:06 08/22/2024 text/html Mrs. Bae [...] post fall while she was shopping at [employer]. No history of high-dose glucocorticoid therapy. No history of current smoking or excess alcohol consumption.Reported a history of ulcerative visual problem i.e. schatzki ring? She currently takes prolia 60 mg subcutaneous every 6 months [ First dose on 04/07/2018, etc]Interval history:Last injection in February 2024No recent falls or low trauma fractures She currently takes Synthroid 75 g every a.m. appropriately as instructed. Takes dcty-pkw-tbsnlge vitamin vitamin D/calcium ARIEL BLUE MD [address] [place] [address], [phone], [facility] 08/22/2024 11:34:16 OBGyn Episode No OBEpisode recorded.
--- OUTSIDE RECORDS SUMMARY | 2025-09-05 12:52 | XMS_ITS | Encounter Summary ---
Author Organization [employer] ([place], [place], [place], [place]) Address [address] [place] [address] Care Team Providers Care Trimming Operator Name Role Phone Vicente Loyd MD Primary Care Provider [phone] Reason for Referral * DXA (Routine) - Closed Specialty Diagnoses / Procedures Referred By Contac t Referred To Contact Diagnoses Age-related osteoporosis without current pathological fracture Procedures DXA bone [place] [address] [place] [address] Phone: tel: fax: Referral ID Status Reason Start Date Expiration Date Visits Re quested Visits Authorized [id number] Closed 08/22/2024 08/22/2025 1 1 Encounter Details Date Type Department Care Team (Late st Contact Info) Description 08/22/2024 Outside Orders [facility] Central Scheduling [address] [place] [phone] Jennifer German MD [facility] [place] [address] Age-related osteoporosis without current pathological fracture (Primary [...] Date Les rded Speak language other than [place]ese at home Not on file 11/19/2023 Want [...] Primary documented in this encounter Care Teams Trimming Operator Relationship Specialty Start Date End Date Vicente Loyd MD [address] [place] [address] [place] [phone] PCP - General General Internal Medicine 06/18/23 documented as of this encounter
== END 2025-09-05 23:59 | disposition home or self-care (01) ==
LOC: RAD 12:48
PROVIDERS: PCP Internal Medicine; Visit Provider Internal Medicine Nephrology
DX: R33.9 Retention of urine, unspecified (principal); R82.81 Pyuria
CPT/HCPCS: 76857